=== PATIENT | male | born 1935 | race Caucasian/White ===

== ENCOUNTER 2017-12-18 15:29 | Oncology outpatient (ONC) | payer MEDICARE, BC, SELFPAY ==
[2017-12-18 15:47] VITALS: BP 141/78; PULSE 66; RESP 18; TEMP 36.8; O2SAT 99
--- NOTE | 2017-12-18 16:20 | ONC.PN ---
PN -Subjective Interval history: Diagnosis: CMML Previous treatment: None Interval history: The patient is an 82-year-old man who was seen initially at [facility] for pancytopenia. He really was not having any symptoms. He was noted to have low B12. He started on replacement and had some slight improvement in his hemoglobin and his white count. He was also noted to have some circulating monocytes that were elevated. He had a bone marrow biopsy performed that showed a hypercellular marrow at about 40%. There is a left shifted granulopoiesis that was megaloblastoid. There was mild discs edith carry a poor we since. There were about 5% blasts by morphology and about 12% blasts by flow cytometry. Cytogenetics were normal and FISH studies for MDS were negative. Other immuno phenotypic abnormalities of the myeloid a monocytic cell lines. Overall, this was felt to be most consistent with CMML. Today, the patient is without complaint. He has just returned from a trip to visit his daughter in [place]. He is not having any pain. His appetite is good. No fevers chills or sweats. He has not been losing any weight. He has not noted any adenopathy. Strength and energy level have been good. No unusual bleeding or bruising. He is otherwise without complaints. His medications include aspirin Lipitor B12 folic acid lisinopril hydrochlorothiazide and metoprolol. His past medical history is notable for tachycardia any does have a monitor on. He has had prior bypass surgery. He has hypertension and hyperlipidemia. He also has a distant history of prostate cancer treated with radiation therapy. Social history he is . 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 He does not drink or smoke. Family history is negative for any blood dyscrasia or malignancy. Home Medications and Allergies Home Medications Medication Instructions Recorded Confirmed Type ASPIRIN (Aspirin EC) 81 mg PO QDAY #0 08/15/12 History lisinopril-hydrochlorothiazide 1 tab PO QDAY #90 tab 09/29/16 Rx [Zestoretic] atorvastatin 40 mg PO DAILY 12/18/17 12/18/17 History cyanocobalamin (vitamin B-12) 1,000 mcg PO DAILY 12/18/17 12/18/17 History [Vitamin B-12] folic acid 0.4 mg PO DAILY 12/18/17 12/18/17 History metoprolol succinate 25 mg PO DAILY 12/18/17 12/18/17 History Exam - Constitutional positive no acute distress, positive average body habitus Results - Labs On November 30 his white count was 4.1 hemoglobin 11.4 hematocrit 34.6 with an MCV of 111 and a platelet count of a [id number]. He had 43% monocytes and an absolute monocyte count of 1.7. - Imaging Additional studies: Procedures Insertion of intraocular lens prosthesis at time of cataract extraction, one-stage (11/12/12) Phacoemulsification and aspiration of cataract (11/12/12) Assessment and Plan (1) CMML (chronic myelomonocytic leukemia) Problem details: 82-year-old man with new diagnosis of CMML. He has a mild anemia as well as a mild absolute monocytosis. He is not circulating any abnormal cells or immature cells. Using the [facility] prediction model, he is in low risk group with a median survival particularly of about 32 months. Because of his age, I do not think that he is a transplant candidate. He is really not symptomatic from his leukemia at this point and I think observation would be his recommended treatment. We did discuss the possibility of using Hydrea or mike-c if he did developed progressive elevations in his white count. Alternatively, vidaza could be considered if he is bothered more by cytopenias and need for transfusions. He is otherwise fairly healthy and I think may be a reasonably good candidate for clinical trials if they are available. Will make referral to [facility] for 2nd opinion and to see about availability and advisability of a clinical trial. He will return to clinic here in about 3 months or so for follow-up. Current visit: Yes Status: Acute
--- NOTE | 2017-12-18 16:25 | P.PNONC_ITS ---
PN -Subjective Interval history: Diagnosis: CMML Previous treatment: None Interval history: The patient is an 82-year-old man who was seen initially at [facility] for pancytopenia. He really was not having any symptoms. He was noted to have low B12. He started on replacement and had some slight improvement in his hemoglobin and his white count. He was also noted to have some circulating monocytes that were elevated. He had a bone marrow biopsy performed that showed a hypercellular marrow at about 40%. There is a left shifted granulopoiesis that was megaloblastoid. There was mild discs edith carry a poor we since. There were about 5% blasts by morphology and about 12% blasts by flow cytometry. Cytogenetics were normal and FISH studies for MDS were negative. Other immuno phenotypic abnormalities of the myeloid a monocytic cell lines. Overall, this was felt to be most consistent with CMML. Today, the patient is without complaint. He has just returned from a trip to visit his daughter in [place]. He is not having any pain. His appetite is good. No fevers chills or sweats. He has not been losing any weight. He has not noted any adenopathy. Strength and energy level have been good. No unusual bleeding or bruising. He is otherwise without complaints. His medications include aspirin Lipitor B12 folic acid lisinopril hydrochlorothiazide and metoprolol. His past medical history is notable for tachycardia any does have a monitor on. He has had prior bypass surgery. He has hypertension and hyperlipidemia. He also has a distant history of prostate cancer treated with radiation therapy. Social history he is . 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 He does not drink or smoke. Family history is negative for any blood dyscrasia or malignancy. Home Medications and Allergies Home Medications Medication Instructions Recorded Confirmed Type ASPIRIN (Aspirin EC) 81 mg PO QDAY #0 08/15/12 History lisinopril-hydrochlorothiazide 1 tab PO QDAY #90 tab 09/29/16 Rx [Zestoretic] atorvastatin 40 mg PO DAILY 12/18/17 12/18/17 History cyanocobalamin (vitamin B-12) 1,000 mcg PO DAILY 12/18/17 12/18/17 History [Vitamin B-12] folic acid 0.4 mg PO DAILY 12/18/17 12/18/17 History metoprolol succinate 25 mg PO DAILY 12/18/17 12/18/17 History Exam - Constitutional positive no acute distress, positive average body habitus Results - Labs On November 30 his white count was 4.1 hemoglobin 11.4 hematocrit 34.6 with an MCV of 111 and a platelet count of a [id number]. He had 43% monocytes and an absolute monocyte count of 1.7. - Imaging Additional studies: Procedures Insertion of intraocular lens prosthesis at time of cataract extraction, one- stage (11/12/12) Phacoemulsification and aspiration of cataract (11/12/12) Assessment and Plan (1) CMML (chronic myelomonocytic leukemia) Problem details: 82-year-old man with new diagnosis of CMML. He has a mild anemia as well as a mild absolute monocytosis. He is not circulating any abnormal cells or immature cells. Using the [facility] prediction model, he is in low risk group with a median survival particularly of about 32 months. Because of his age, I do not think that he is a transplant candidate. He is really not symptomatic from his leukemia at this point and I think observation would be his recommended treatment. We did discuss the possibility of using Hydrea or mike-c if he did developed progressive elevations in his white count. Alternatively, vidaza could be considered if he is bothered more by cytopenias and need for transfusions. He is otherwise fairly healthy and I think may be a reasonably good candidate for clinical trials if they are available. Will make referral to [facility] for 2nd opinion and to see about availability and advisability of a clinical trial. He will return to clinic here in about 3 months or so for follow-up. Current visit: Yes Status: Acute
== END 2017-12-19 12:00 | disposition home or self-care (01) ==
PROVIDERS: Family Provider Family Medicine; PCP Family Medicine
DX: C93.10 Chronic myelomonocytic leukemia not having achieved remission (principal); D64.9 Anemia, unspecified; Z85.46 Personal history of malignant neoplasm of prostate
CPT/HCPCS: 99214

== ENCOUNTER 2020-09-28 11:54 | Emergency (ER) | payer MEDICARE, BC, SELFPAY ==
[2020-09-28] VITALS (7 sets, daily range): BP systolic 122–141; BP diastolic 60–66; PULSE 49–66; RESP 18; TEMP 36.3; O2SAT 92–99
--- NOTE | 2020-09-28 12:30 | DI.CT.S_ITS ---
PROCEDURE: CT THORACIC SPINE WO CON INDICATIONS: fall w/ worsening pain ? fx on outpt (mae) xray TECHNIQUE: Noncontrast 3 mm thick sections acquired through the region of interest in the thoracic spine. Sagittal and coronal reformats were then constructed. For radiation dose reduction, the following was used: automated exposure control. COMPARISON: [facility], CT, CT LUMBAR SPINE WO CON, 09/28/2020, 12:32. FINDINGS: Image quality: Excellent. There are small rudimentary ribs associated with the L1 vertebral body. At T9, there is a old compression fracture with 70% height loss that has previously been treated with vertebroplasty. Methylmethacrylate cement is well contained At T11, there is an unchanged did acute appearing compression fracture with 50% height loss and prevertebral soft tissue edema. Minimal retropulsed fracture fragment results in mild central stenosis. L1 compression fracture is noted with 20% wedge-shaped anterior height loss. Heart size is enlarged, and there is dense coronary artery vascular calcification present. Old healed right posterior 7th, 8th and 9th rib fractures noted.. IMPRESSION: 1. Acute T11 compression fracture with 50% height loss and small retropulsed fracture fragment resulting in mild central stenosis. 2. L1 compression fracture with 20% anterior height loss is of uncertain age. Small rudimentary ribs noted associated with L1. 3. Old T9 compression fracture has been previously treated with vertebroplasty Approved by: Loyd Rodriguez M.D. on 09/28/2020 at 12:57
[2020-09-28] MEDS: KETOROLAC 30 MG/ML VIAL 15 MG IV (12:33)
[2020-09-28] MEDS: CYCLOBENZAPRINE 10 MG TABLET PO (12:33)
--- NOTE | 2020-09-28 12:34 | DI.CT.S_ITS ---
PROCEDURE: CT LUMBAR SPINE WO CON INDICATIONS: fall w/ worsening pain ? fx on outpt (mae) xray TECHNIQUE: Noncontrast 3 mm thick sections acquired from the T12 level to the sacrum. Sagittal and coronal reformats were constructed. For radiation dose reduction, the following was used: automated exposure control. COMPARISON: [facility], , CHEST 2 VIEW, 09/03/2006, 11:45. FINDINGS: Image quality: Excellent. Bones: There is a L1 wedge-shaped compression fracture with 20% anterior height loss and no retropulsed fracture fragment present. No central or foraminal stenosis. Small Schmorl's node noted in the superior endplate as well. Atherosclerotic calcification in the abdominal aorta noted without evidence of aneurysm. Mild disc space narrowing and circumferential disc bulge is present with arthropathy noted at L4-5 and L5-S1 without central stenosis. Mild bilateral foraminal stenosis noted L5-S1. IMPRESSION: L1 compression fracture with 20% height loss and no retropulsed fracture fragment. No central stenosis. Approved by: Loyd Rodriguez M.D. on 09/28/2020 at 12:45
--- NOTE | 2020-09-28 14:57 | ED.BACK ---
HPI - Back Pain/Injury General Chief Complaint: Back Pain/Injury Stated Complaint: bad back pain, Time Seen by Provider: 09/28/20 14:52 History of Present Illness HPI Narrative: This an 85-year-old male comes in with complaint of bad back pain in his lower thoracic and upper lumbar back pain. Patient had fall backwards about 2 weeks ago. He has continued to have similar symptoms since then with pain wrapping around towards front. Denies any radiation down his legs. No numbness, tingling or weakness. No loss of bowel or bladder control. Patient has had similar symptoms when he had a prior vertebral compression fracture had did have kyphoplasty. This was when he was staying in [place] you talk over the winter. Patient denies any other symptoms. He does have a history of cardiac bypass and is unsure of a statin, lisinopril/hydrochlorothiazide and metoprolol. Patient has been taking Tylenol home which has had moderate improvement for his pain but he does not feel to adequately controlled. Related Data Home Medications Medication Instructions Recorded Confirmed atorvastatin 40 mg tablet 40 mg PO DAILY 12/18/17 12/31/18 metoprolol succinate 25 mg 25 mg PO DAILY 12/18/17 12/31/18 tablet,extended release 24 hr ResMed Airsense 10 CPAP #1 ea 07/01/18 12/31/18 Previous Rx's Medication Instructions Recorded lisinopril 10 1 tab PO QDAY #90 tab 09/29/16 mg-hydrochlorothiazide 12.5 mg tablet (Zestoretic) hydrocodone 5 mg-acetaminophen 325 1 tab PO QID PRN #20 tab 09/28/20 mg tablet Allergies Allergy/AdvReac Type Severity Reaction Status Date / Time No Known Drug Allergies Allergy Verified 06/11/20 17:27 Review of Systems Review of Systems ROS Unobtainable: All systems reviewed & are unremarkable except as noted in HPI and below Patient History Medical History Aortic sclerosis (07/08/15) CMML (chronic myelomonocytic leukemia) (~2018) Compression fracture of thoracic vertebra 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/15) Erectile dysfunction due to arterial insufficiency (07/08/15) Essential hypertension (03/06/16) Malignant neoplasm of prostate (07/08/15) Mixed hyperlipidemia (07/08/15) Neutropenia (06/19/16) Obstructive sleep apnea syndrome (07/08/15) Osteoporosis (~2018) Other iron deficiency anemia (07/08/15) Restless legs syndrome (RLS) Surgical History Hip joint replacement status History of tonsillectomy and adenoidectomy S/P CABG x 4 Status post appendectomy Family History Father Mental health problem Social History marital status: details: trang Tam, lives on [place] in the summer number of children: 3 household members: spouse lives independently: Yes caregiver/support person: No housing: house occupational status: previously employed Smoking Status: Never smoker Smoking Status: Never smoker alcohol intake frequency: 0-2 drinks per day Substance Use Type: does not use Exam Narrative Exam Narrative: GENERAL: Alert and oriented x three, elderly male in mild distress. HEENT: Head normocephalic, atraumatic, EOMI, pupils reactive, face symmetric, moist mucous membranes NECK: Supple, full range of motion CARDIOVASCULAR: Regular rate and rhythm without murmurs, rubs or gallops. RESPIRATORY: Breath sounds equal bilaterally, no wheezes rales or rhonchi. ABDOMEN: Soft, nontender. Normoactive bowel sounds all 4 quadrants. No guarding or rebound, rigidity, no mass : No CVA tenderness BACK: No cervical, thoracic or lumbar vertebral point tenderness. Patient has decreased range of motion. Rectal exam is deferred. Muscle strength is 5/5 in lower extremities, DTRs are 2/4 and lower extremities. Dorsalis pedis and tibialis pulses are 2+ and lower extremities. Sensation is intact in the lower extremities. EXTREMITIES: Normal range of motion, no clubbing or edema. Neurovascularly intact NEUROLOGICAL: Cranial nerves II through XII grossly intact. Moving all extremities SKIN: Warm, dry, no petechiae, no rashes or lesions. Initial Vital Signs Initial Vital Signs: Vital Signs Temperature 97.3 F L 09/28/20 12:06 Pulse Rate 62 09/28/20 12:06 Respiratory Rate 18 09/28/20 12:06 Blood Pressure 138/61 09/28/20 12:06 Pulse Oximetry 99 09/28/20 12:06 Course Orders Ordered: ED Orders 09/28/20 12:30 CT thoracic spine wo con Stat 09/28/20 12:34 CT lumbar spine wo con Stat Discontinued Medications Hydrocodone Bitart/Acetaminophen (Hydrocodone/Acet 5/325 Tablet) 1 tab PO NOW ONE Stop: 09/28/20 15:41 Last Admin: 09/28/20 15:49 Dose: 1 tab Documented by: LEIGHTON Cyclobenzaprine HCl (Cyclobenzaprine 10 Mg Tablet) 10 mg PO NOW ONE Stop: 09/28/20 12:30 Last Admin: 09/28/20 12:33 Dose: 10 mg Documented by: JEAN CLAUDE Ketorolac Tromethamine (Ketorolac 30 Mg/Ml Vial) 15 mg IV NOW ONE Stop: 09/28/20 12:30 Last Admin: 09/28/20 12:33 Dose: 15 mg Documented by: JEAN CLAUDE Consultations Consultation #1: Dr. Michel, orthopedic surgery. Images reviewed. Okay to follow up outpatient. Can follow up with Dr. Proctor but Dr. Jordan would also be a good choice for possibly kyphoplasty. Agrees with plan that patient is appropriate for outpatient management. Vital Signs Vital signs: Vital Signs - 8 hr 09/28/20 12:06 09/28/20 14:44 09/28/20 14:52 Temperature 97.3 F L Pulse Rate 62 49 L 50 L Respiratory Rate 18 18 Blood Pressure 138/61 122/60 Pulse Oximetry 99 98 99 09/28/20 15:00 09/28/20 15:01 09/28/20 15:30 Temperature Pulse Rate 61 66 Respiratory Rate Blood Pressure 125/60 141/66 H Pulse Oximetry 99 99 09/28/20 15:44 Temperature Pulse Rate 61 Respiratory Rate Blood Pressure Pulse Oximetry 92 MDM - Back Pain/Injury Imaging Data tspine CT: Radiologist's Impression: [address] [id number] Scan ReportSigned Patient: Tanner Randhawa TMR#: [id number]: 5Acct:[id number]/Sex: 85 / MDate of Service: 09/28/20Loc: EDAccession Number: [id number] Procedure: CT thoracic spine wo con Ordering Provider: Cristy Pires D.O. PROCEDURE: CT THORACIC SPINE WO CON INDICATIONS: fall w/ worsening pain ? fx on outpt (mae) xray TECHNIQUE: Noncontrast 3 mm thick sections acquired through the region of interest in the thoracic spine. Sagittal and coronal reformats were then constructed. For radiation dose reduction, the following was used: automated exposure control. COMPARISON: [facility], CT, CT LUMBAR SPINE WO CON, 09/28/2020, 12:32. FINDINGS: Image quality: Excellent. There are small rudimentary ribs associated with the L1 vertebral body. At T9, there is a old compression fracture with 70% height loss that has previously been treated with vertebroplasty. Methylmethacrylate cement is well contained At T11, there is an unchanged did acute appearing compression fracture with 50% height loss and prevertebral soft tissue edema. Minimal retropulsed fracture fragment results in mild central stenosis. L1 compression fracture is noted with 20% wedge-shaped anterior height loss. Heart size is enlarged, and there is dense coronary artery vascular calcification present. Old healed right posterior 7th, 8th and 9th rib fractures noted.. IMPRESSION: 1. Acute T11 compression fracture with 50% height loss and small retropulsed fracture fragment resulting in mild central stenosis. 2. L1 compression fracture with 20% anterior height loss is of uncertain age. Small rudimentary ribs noted associated with L1. 3. Old T9 compression fracture has been previously treated with vertebroplasty Approved by: Loyd Rodriguez M.D. on 09/28/2020 at 12:[address]: Radiologist's Impression: [address] [id number] Scan ReportSigned Patient: Tanner Randhawa TMR#: [id number]: 5Acct:[id number]/Sex: 85 / MDate of Service: 09/28/20Loc: EDAccession Number: [id number] Procedure: CT lumbar spine wo con Ordering Provider: Cristy Pires D.O. PROCEDURE: CT LUMBAR SPINE WO CON INDICATIONS: fall w/ worsening pain ? fx on outpt (mae) xray TECHNIQUE: Noncontrast 3 mm thick sections acquired from the T12 level to the sacrum. Sagittal and coronal reformats were constructed. For radiation dose reduction, the following was used: automated exposure control. COMPARISON: [facility], , CHEST 2 VIEW, 09/03/2006, 11:45. FINDINGS: Image quality: Excellent. Bones: There is a L1 wedge-shaped compression fracture with 20% anterior height loss and no retropulsed fracture fragment present. No central or foraminal stenosis. Small Schmorl's node noted in the superior endplate as well. Atherosclerotic calcification in the abdominal aorta noted without evidence of aneurysm. Mild disc space narrowing and circumferential disc bulge is present with arthropathy noted at L4-5 and L5-S1 without central stenosis. Mild bilateral foraminal stenosis noted L5-S1. IMPRESSION: L1 compression fracture with 20% height loss and no retropulsed fracture fragment. No central stenosis. Approved by: Loyd Rodriguez M.D. on 09/28/2020 at 12:45 MDM Narrative Medical decision making narrative: 85-year-old male who has had back pain after a fall box maleate 10 days ago. Patient does have a history compression fractures and states this feels similar. CT imaging does show an acute fracture with a small retropulsed fragment. Patient some been controlling his pain with Tylenol, he has been able to ambulate does not have any new neurologic changes. Images were reviewed with orthopedic surgery who feels patient is appropriate for outpatient follow-up. Referrals can include Dr. Hunter here locally or Dr. Jordan also. Patient was given prescription for pain control. Return precautions in all questions answered. Discharge Plan Departure Patient Disposition: Home Clinical Impression: Compression fracture of L1 lumbar vertebra Compression fracture of thoracic vertebra Qualifiers: Encounter type: initial encounter Thoracic vertebra fracture level: T11 Qualified Code(s): S22.080A - Wedge compression fracture of T11-T12 vertebra, initial encounter for closed fracture Instructions: DI for Vertebral Fracture Activity Restrictions/Additional Instructions: Your imaging today shows what appear to be old compression fractures at T9 and L1 as well as a new compression fracture at T11. Your case was discussed with Dr. Michel from Orthopedic surgery. Your images were reviewed. Please call to set up an appointment with orthopedic surgery. Dr. Jordan may be a good choice and his contact information is included. There office number is [phone]. You may take Tylenol up to a 1000 mg every 8 hours as needed for pain. If this is inadequate you may take [place] in place of Tylenol. These both have Tylenol in them so your maximum dose of acetaminophen or Tylenol in 24 hours is 3000 mg. If this is an adequate you may take narcotic pain medication as prescribed. This medication can make you sleepy do not drive, perform hazardous activities or make any major decisions while taking it. This medication will make you constipated please take a stool softener once to twice daily until stools are soft and regular. Prescription sent to [facility]. Please return for fevers, rapidly worsening or uncontrollable pain, new weakness numbness or loss of sensation, loss of bowel or bladder control, new numbness in the groin region or other new or concerning symptoms. Prescriptions: New hydrocodone-acetaminophen 5-325 mg tablet 1 tab PO QID PRN (Reason: pain) Qty: 20 RF: 0 No Action lisinopril-hydrochlorothiazide [Zestoretic] 10 MG/12.5 MG tablet 1 tab PO QDAY Qty: 90 RF: 0 (DME) ResMed Airsense 10 CPAP Qty: 1 RF: 0 atorvastatin 40 mg Tablet 40 mg PO DAILY RF: 0 metoprolol succinate 25 mg Tablet Extended Release 24 Hr 25 mg PO DAILY RF: 0 Referrals: Shayne Jordan MD [Physician] - Yodit Michel MD [Physician] - Chan Sandy MD [Primary Care Provider] -
[2020-09-28] MEDS: HYDROCODONE/ACET 5/325 TABLET 1 TAB PO (15:49)
== END 2020-09-28 16:02 | disposition home or self-care (01) ==
PROVIDERS: Emergency Provider Emergency Medicine; Family Provider Family Medicine; PCP Family Medicine
DX: S32.010A Wedge compression fracture of first lumbar vertebra, initial encounter for closed fracture (principal); S22.080A Wedge compression fracture of T11-T12 vertebra, initial encounter for closed fracture; W19.XXXA Unspecified fall, initial encounter
CPT/HCPCS: 72128; 72131; 96374; 99284; J1885

== ENCOUNTER → 2020-11-12 16:05 | Outpatient (CLI) | payer MEDICARE, BC, SELFPAY ==
--- NOTE | 2020-11-12 | DI.MRI.S_ITS ---
PROCEDURE: MR LUMBAR SPINE WO CON INDICATIONS: Radiculopathy, lumbar region TECHNIQUE: Noncontrast sagittal T1 spin echo and T2 fast echo, sagittal STIR, axial T1 and T2 fast spin echo through the lumbar spine. In cases with scoliosis, additional coronal T2 fast spin echo may be performed. COMPARISON: [facility], CR, XR THORACIC SPINE 2 VIEWS, 10/06/2020, 14:37. [facility], CT, CT THORACIC SPINE WO CON, 09/28/2020, 12:32. [facility], CR, XR THORACOLUMBAR SPINE 2 VIEWS, 10/20/2020, 15:05. [facility], CT, CT LUMBAR SPINE WO CON, 09/28/2020, 12:32. FINDINGS: Image quality: Excellent. Alignment and Curvature: There is normal bony alignment. Bone Marrow: Marrow is of normal overall signal. No acute vertebral body compression fractures. Prior stable anterior wedge deformities can be seen at T9, T11, and L1, with placement of vertebroplasty cement. Spinal Cord: Conus medullaris terminates at the L1-L2 level. Visualized cord demonstrates normal signal and size. Paraspinous Soft Tissues: No paravertebral masses. A simple appearing left renal cyst can be seen posteriorly, measuring 1.8 cm. T12-L1: No significant abnormality can be seen. L1-L2: Normal appearance. L2-L3: Normal appearance. L3-L4: The disc height and disc signal are relatively well preserved. Mild generalized disc bulge is seen. Mild bilateral neural foraminal narrowing can be seen, left worse than right. No significant central canal narrowing is seen. L4-L5: The disc height is well-preserved. Loss of disc signal is seen at this level. Mild to moderate disc bulge is seen. Mild facet joint hypertrophy is seen. Mild to moderate bilateral neural foraminal narrowing can be seen. Minimal central canal narrowing is seen. L5-S1: The disc height and disc signal are relatively well preserved. Mild generalized disc bulge is seen. There is moderate right-sided and mild left-sided facet hypertrophy seen. There is moderate bilateral neural foraminal narrowing seen, right worse than left. Minimal central canal narrowing is seen. IMPRESSION: Lumbar spine degenerative changes are seen, which are overall worst at the L5-S1 level. Prior T9, T11, and L1 fractures, with vertebroplasty cement. Dictated by: Андрей Ibrhaim M.D. on 11/12/2020 at 16:48 Approved by: Андрей Ibrahim M.D. on 11/12/2020 at 16:57
== END ==
PROVIDERS: Family Provider Family Medicine; PCP Family Medicine; Referring Provider Family Medicine; Visit Provider Family Medicine
DX: S32.010S Wedge compression fracture of first lumbar vertebra, sequela (principal); M54.14 Radiculopathy, thoracic region; S22.080D Wedge compression fracture of T11-T12 vertebra, subsequent encounter for fracture with routine healing
CPT/HCPCS: 72148

== ENCOUNTER → 2021-06-28 17:07 | Outpatient (CLI) | payer MEDICARE, BC, SELFPAY ==
--- NOTE | 2021-06-28 | DI.MRI.S_ITS ---
PROCEDURE: MR LUMBAR SPINE WO CON INDICATIONS: WEDGE COMPRESSION FRACTURE OF FIRST LUMBAR TECHNIQUE: Noncontrast sagittal T1 spin echo and T2 fast echo, sagittal STIR, and T2 fast spin echo through the lumbar spine. In cases with scoliosis, additional coronal T2 fast spin echo may be performed. COMPARISON: [facility], CR, XR THORACIC SPINE 2 VIEWS, 05/17/2021, 11:45. [facility], MR, MR LUMBAR SPINE WITHOUT CONTRAST, 05/20/2021, 11:27. [facility], CR, XR INTRAOPERATIVE FLUORO UP TO 1 HOUR, 06/14/2021, 12:37. [facility], CR, XR LUMBAR SPINE 2 OR 3 VIEWS, 06/28/2021, 13:56. [facility], CT, CT THORACIC SPINE WO CON, 09/28/2020, 12:32. [facility], CT, CT LUMBAR SPINE WO CON, 09/28/2020, 12:32. [facility], MR, MR LUMBAR SPINE WO CON, 11/12/2020, 17:11. FINDINGS: Image quality: Excellent. Alignment and Curvature: There is normal bony alignment. Bone Marrow: Marrow is of normal overall signal. No acute vertebral body compression fractures. Previous treated compressions of T11, L1, and L3. There is some further collapse that has occurred involving L3, with associated bone marrow edema. Spinal Cord: Conus medullaris terminates at the L2 level. Visualized cord demonstrates normal signal and size. Paraspinous Soft Tissues: No paravertebral masses. T12-L1: No canal stenosis or foraminal stenosis. L1-L2: Mild facet hypertrophy. No canal stenosis or foraminal stenosis. L2-L3: Mild facet hypertrophy. No canal stenosis or foraminal stenosis. L3-L4: Mild facet hypertrophy. No canal stenosis. Mild right foraminal stenosis. L4-L5: Disc bulge. Mild facet hypertrophy. No canal stenosis. Mild right foraminal stenosis. L5-S1: Disc bulge. Facet hypertrophy. No canal stenosis. Moderate right foraminal stenosis with flattening deformity on the exiting right L5 nerve root. IMPRESSION: 1. There are treated compression fractures of T11, L1, and L3. 3. Mild interval further collapse of L3 with associated bone marrow edema. At least some of this edema can be related to the recent kyphoplasty procedure. Dictated by: Mukund Rice M.D. on 06/29/2021 at 9:21 Approved by: Mukund Rice M.D. on 06/29/2021 at 9:33
--- NOTE | 2021-06-28 | DI.MRI.S_ITS ---
PROCEDURE: MR THORACIC SPINE WO CON INDICATIONS: WEDGE COMPRESSION FX OF FIRST LUMBAR TECHNIQUE: Noncontrast sagittal T1 spine echo and T2 fast spin echo, sagittal STIR, axial T1 and T2 fast spin echo through the thoracic spine. COMPARISON: [facility], CT, CT THORACIC SPINE WO CON, 09/28/2020, 12:32. [facility], CR, DEXA COMPLETE, 12/16/2018, 10:23. [facility], CR, XR LUMBAR SPINE 2 OR 3 VIEWS, 06/28/2021, 13:56. FINDINGS: Image quality: Excellent. Alignment and Curvature: There is normal bony alignment. Bone Marrow: Numerous previously treated compression fractures, including T9, T11, L1, and L3. Mild old T1, T3, T6 vertebral fractures. Subacute T7 moderate compression with approximately 50% midportion vertebral body height loss. This is a subacute on chronic compression. Spinal Cord: Visualized spinal cord is normal in size and signal. Paraspinous Soft Tissues: No paravertebral masses. Miscellaneous: On axial images, central canal and foramina appear widely patent at all scanned levels. There is minimal bony retropulsion at T7-T8 involving the inferior endplate of T7, without canal stenosis. IMPRESSION: 1. Severe osteoporosis with numerous chronic compressions, including T1, T3, T6, T9, T11, L1, and L3. Previous percutaneous cement fixation of T9, T11, L1, and L3. 2. There is a subacute on chronic compression fracture of T7. It is moderate. Dictated by: Mukund Rice M.D. on 06/29/2021 at 9:12 Approved by: Mukund Rice M.D. on 06/29/2021 at 9:21
== END ==
PROVIDERS: Family Provider Family Medicine; PCP Family Medicine; Referring Provider Orthopaedic Surgery; Visit Provider Orthopaedic Surgery
DX: M80.08XA Age-related osteoporosis with current pathological fracture, vertebra(e), initial encounter for fracture (principal); S32.010D Wedge compression fracture of first lumbar vertebra, subsequent encounter for fracture with routine healing; M54.6 Pain in thoracic spine
CPT/HCPCS: 72146; 72148

== ENCOUNTER → 2021-11-10 18:48 | Outpatient (CLI) | payer MEDICARE, BC, SELFPAY ==
--- NOTE | 2021-11-10 18:52 | DI.MRI.S_ITS ---
PROCEDURE: MR LUMBAR SPINE WO CON INDICATIONS: LOWER BACK PAIN TECHNIQUE: Noncontrast sagittal T1 spin echo and T2 fast echo, sagittal STIR, and T2 fast spin echo through the lumbar spine. In cases with scoliosis, additional coronal T2 fast spin echo may be performed. COMPARISON: [facility], CR, XR LUMBAR SPINE WITH FLEXION EXTENSION 5 VIEWS, 11/10/2021, 13:56. [facility], MR, MR LUMBAR SPINE WO CON, 06/28/2021, 17:57. [facility], CR, XR INTRAOPERATIVE FLUORO UP TO 1 HOUR, 06/14/2021, 12:37. FINDINGS: Image quality: Excellent. Alignment and Curvature: There is normal bony alignment. Bone Marrow: Wedge-shaped compression fractures noted throughout the visualized spine from T11 through L5 with relative sparing of the T12 and S1. Moderate height loss at T11. There is marrow edema involving the superior endplate of L2 reflecting acute to subacute compression fracture. Vertebroplasty treatment noted at T11, L1 and L3 Spinal Cord: Conus medullaris terminates at the L1 level. Visualized cord demonstrates normal signal and size. Paraspinous Soft Tissues: No paravertebral masses. T12-L1: Disc space narrowing with circumferential disc bulge and hypertrophic facet joints results in no central or foraminal stenosis L1-L2: Disc space is preserved. No central or foraminal stenosis L2-L3: Disc space narrowing with circumferential disc bulge and hypertrophic facet joints results in no central stenosis. Mild bilateral foraminal stenosis L3-L4: Disc space is preserved. Circumferential disc bulge present. No central stenosis. Moderate bilateral foraminal stenosis L4-L5: Disc height is preserved. Circumferential disc bulge present without central stenosis. Moderate bilateral foraminal stenosis L5-S1: Disc height is preserved. Hypertrophic facet joints present. No central stenosis. Mild right and moderate left foraminal stenosis IMPRESSION: 1. Acute to subacute L2 compression fracture with marrow edema and trace height loss. No retropulsed fracture fragment or significant stenosis. 2. Multilevel chronic vertebral compression fractures associated with well contained vertebroplasty treatment at T11, L1 and L3. Approved by: Loyd Rodriguez M.D. on 11/11/2021 at 10:11
== END ==
PROVIDERS: Family Provider Family Medicine; PCP Family Medicine; Referring Provider Physician Assistant Surgical; Visit Provider Physician Assistant Surgical
DX: S22.080S Wedge compression fracture of T11-T12 vertebra, sequela (principal); M54.50 Low back pain, unspecified; S29.019D Strain of muscle and tendon of unspecified wall of thorax, subsequent encounter; M80.08XS Age-related osteoporosis with current pathological fracture, vertebra(e), sequela; S32.030S Wedge compression fracture of third lumbar vertebra, sequela; S32.010S Wedge compression fracture of first lumbar vertebra, sequela
CPT/HCPCS: 72148

== ENCOUNTER 2023-06-26 12:23 | Emergency (ER) | payer MEDICARE, OTHER, SELFPAY ==
[2023-06-26 12:23] VITALS: BP 153/104; PULSE 77; RESP 16; TEMP 36.7; O2SAT 96
--- NOTE | 2023-06-26 12:43 | ED_ITS ---
HPI - Male Genitourinary General Chief complaint: Urogenital-Male Stated complaint: Edema in penis Time Seen by Provider: 06/26/23 12:43 Source: patient, RN notes reviewed and old records reviewed Limitations: no limitations History of Present Illness HPI Narrative: This is an 88-year-old male with recent hip fracture and repair sent for swelling or edema of the penis. Patient comes from rehab facility. Patient states he is not circumcised, he does not recall having a catheter any time recently or having any thing done but he states nursing noticed that his penis was swollen. He does not know when that started. Patient denies any pain, he has been urinating. He has not other complaints. Related Data Home Medications Medication Instructions Recorded Confirmed atorvastatin 40 mg tablet 40 mg PO DAILY 12/18/17 12/28/20 metoprolol succinate 25 mg 25 mg PO DAILY 12/18/17 12/28/20 tablet,extended release 24 hr [facility] Air[facility] 10 CPAP #1 ea 07/01/18 12/28/20 amiodarone PO 12/28/20 apixaban 5 mg tablet (Eliquis) 5 mg PO BID 12/28/20 12/28/20 Previous Rx's Medication Instructions Recorded lisinopril 10 1 tab PO QDAY #90 tabs 09/29/16 mg-hydrochlorothiazide 12.5 mg tablet (Zestoretic) Allergies Allergy/AdvReac Type Severity Reaction Status Date / Time No Known Drug Allergies Allergy Verified 12/28/20 11:03 Review of Systems Review of Systems ROS Unobtainable: All systems reviewed & are unremarkable except as noted in HPI and below Patient History Medical History Actinic keratosis (12/05/04) Compression fracture of first lumbar vertebra Restless legs syndrome (RLS) Osteoporosis (~2018) Compression fracture of thoracic vertebra CMML (chronic myelomonocytic leukemia) (~2018) Neutropenia (06/19/16) Essential hypertension (03/06/16) Aortic sclerosis (07/08/15) Malignant neoplasm of prostate (07/08/15) Other iron deficiency anemia (07/08/15) Obstructive sleep apnea syndrome (07/08/15) Mixed hyperlipidemia (01/08/03) Erectile dysfunction due to arterial insufficiency (07/08/15) Coronary artery disease involving [place] coronary artery of [place] heart without angina pectoris (07/08/15) Surgical History S/P CABG x 4 Hip joint replacement status History of tonsillectomy and adenoidectomy Status post appendectomy Family History Father Mental health problem Social History marital status: details: trang Tam, [place] on [address] [place] number of children: 3 household members: spouse lives independently: Yes caregiver/support person: No housing: house occupational status: previously employed Smoking Status: Never smoker Smoking Status: Never smoker alcohol intake frequency: 0-2 drinks per day Substance Use Type: does not use Exam Narrative Exam Narrative: GENERAL: Alert and oriented x three, male in mild distress HEENT: Head normocephalic, atraumatic, EOMI, pupils reactive, face symmetric, moist mucous membranes NECK: Supple, full range of motion CARDIOVASCULAR: Regular rate and rhythm without murmurs, rubs or gallops. RESPIRATORY: Breath sounds equal bilaterally, no wheezes rales or rhonchi. ABDOMEN: Soft, nontender. Normoactive bowel sounds all 4 quadrants. No guarding or rebound, rigidity, no mass : No CVA tenderness. Male: normal external examination of the testicles patient's penis the glans and distal portion of the shaft are quite edematous, no erythema, patient is nontender, no penile discharge or lesions, testicles non-tender, cremasteric reflex intact, no inguinal hernias noted. Patient had direct pressure applied to the area circumferentially and his foreskin was replaced with reduction of the paraphimosis. EXTREMITIES: Normal range of motion, no clubbing or edema. Neurovascularly intact NEUROLOGICAL: Cranial nerves II through XII grossly intact. Moving all extremities SKIN: Warm, dry, no petechiae, no rashes or lesions. Initial Vital Signs Initial Vital Signs: Vital Signs Temperature 98.0 F 06/26/23 12:23 Pulse Rate 77 06/26/23 12:23 Respiratory Rate 16 06/26/23 12:23 Blood Pressure 153/104 H 06/26/23 12:23 Pulse Oximetry 96 06/26/23 12:23 Oxygen Delivery Method Room Air 06/26/23 12:23 Course Vital Signs Vital signs: Vital Signs - 8 hr 06/26/23 12:23 06/26/23 14:20 Temperature 98.0 F Pulse Rate 77 69 Respiratory Rate 16 16 Blood Pressure 153/104 H 133/69 Pulse Oximetry 96 100 Oxygen Delivery Method Room Air Room Air MDM - Male Genitourinary MDM Narrative Medical decision making narrative: This is an 88-year-old male with recent hospitalization for hip fracture currently in rehab facility he is uncircumcised and was noted by staff today on skin checks that he had a paraphimosis he does on examination, it was easily reduced by myself. He has been urinating. Patient had a little bit of ice placed and was rechecked about 45 minutes after reduction, patient still reduced. He has been able to urinate here in the department afterwards. Discharge Plan Departure Patient Disposition: Home Clinical Impression: Paraphimosis Instructions: DI for Paraphimosis Activity Restrictions/Additional Instructions: Follow up with Urology as needed. You had a paraphimosis today this is when the foreskin has been retracted and left in place and he developed swelling of the end of the penis. This was reduced here in the department, do not retract the foreskin for the next 48 hours make sure to replace after any sort of skin care, Bowens catheter or straight catheter interventions by yourself or nursing staff. Please return for any difficulties with urination, if you are having pain, increasing swelling, hematuria or bleeding or other new or concerning changes. Prescriptions: No Action lisinopril-hydrochlorothiazide [Zestoretic] 10 MG/12.5 MG tablet 1 tab PO QDAY Qty: 90 0RF (DME) [facility] Airsense 10 CPAP Qty: 1 Dose Instruction: As directed Patient Comments: Pressure: 9-16 cmH2O DME: [facility] Rx Instructions: As directed atorvastatin 40 mg Tablet 40 mg PO DAILY metoprolol succinate 25 mg Tablet Extended Release 24 Hr 25 mg PO DAILY Eliquis 5 mg tablet 5 mg PO BID amiodarone PO Referrals: Cam Wick MD [Physician] - Chan Sandy MD [Primary Care Provider] - Stand Alone Forms: Patient Portal/API
[2023-06-26 14:20] VITALS: BP 133/69; PULSE 69; RESP 16; O2SAT 100
== END 2023-06-26 14:32 | disposition home or self-care (01) ==
PROVIDERS: Emergency Provider Emergency Medicine; Family Provider Family Medicine; PCP Family Medicine
DX: N47.2 Paraphimosis (principal)
CPT/HCPCS: 99281

== ENCOUNTER → 2023-07-11 08:29 | Outpatient (ROUT) | payer MEDICARE, SELFPAY ==
[2023-07-11 08:39] LABS: D Dimer 2258 ng/ml (<500)
== END ==
PROVIDERS: Family Provider Family Medicine; PCP Family Medicine; Visit Provider Registered Nurse
DX: S12.3 Fracture of fourth cervical vertebra (principal)
CPT/HCPCS: 85379

== ENCOUNTER 2023-07-26 16:46 | Emergency (ER) | payer MEDICARE, BC, SELFPAY ==
[2023-07-26 16:52] VITALS: BP 125/59; PULSE 51; RESP 18; TEMP 36.3; O2SAT 100; BMI 21.4
--- NOTE | 2023-07-26 18:47 | PC.NURSE ---
Patient has unstageable right heel ulcer that is the diameter of a half dollar with a ring of darkness that is surrounding.
--- NOTE | 2023-07-26 18:50 | ED.WOUNDLAC ---
HPI - Wound/Laceration <Alireza Alicea PA-C - Last Filed: 07/26/23 19:22> General Chief Complaint: Wound/Laceration Stated Complaint: sores on feet,low blood pressure sent by [facility] Time Seen by Provider: 07/26/23 18:33 History of Present Illness HPI narrative: This is a 88-year-old male presents to the emergency department due to the right heel ulcer. He fractures femur about a month and a half ago and he developed a right heel ulcer about a month ago. There was no spreading redness around the wound and denies any fevers or systemic Cipro denies any drainage from the wound. Denies any significant pain. Related Data Home Medications Medication Instructions Recorded Confirmed atorvastatin 40 mg tablet 40 mg PO DAILY 12/18/17 07/26/23 [facility]Med Airsense 10 CPAP #1 ea 07/01/18 12/28/20 digoxin 125 mcg (0.125 mg) tablet 125 mcg PO DAILY 07/26/23 07/26/23 gabapentin 100 mg capsule 100 mg PO DAILY 07/26/23 07/26/23 hydrochlorothiazide 12.5 mg tablet 12.5 mg PO DAILY 07/26/23 07/26/23 levothyroxine 25 mcg tablet 25 mcg PO DAILY 07/26/23 07/26/23 lisinopril 5 mg tablet 5 mg PO DAILY 07/26/23 07/26/23 metoprolol succinate 25 mg 50 mg PO BID 07/26/23 07/26/23 tablet,extended release 24 hr mirtazapine 15 mg tablet 15 mg PO ONCE PM 07/26/23 07/26/23 Allergies Allergy/AdvReac Type Severity Reaction Status Date / Time No Known Drug Allergies Allergy Verified 12/28/20 11:03 Review of Systems <Alireza Alicea PA-C - Last Filed: 07/26/23 19:22> Review of Systems Narrative: GENERAL: Denies chills, fatigue, malaise, fever, sweats. HEENT: Denies sinus pain, ear pain, sore throat, difficulty swallowing, dizziness. RESPIRATORY: Denies dyspnea, cough, wheezing, hemoptysis, sputum. CARDIOVASCULAR: Denies chest pain, palpitations, orthopnea, edema, GASTROINTESTINAL: Denies nausea, vomiting, abdominal pain, diarrhea, constipation, melena. : Denies dysuria, frequency, incontinence, hematuria, urinary retention. MUSCULOSKELETAL: denies weakness, joint pain, or bony pain SKIN: Right heel ulcer NEUROLOGIC: Denies weakness, headache, numbness, change in speech, confusion, seizures, incoordination. PSYCHIATRIC: No concerning psychosocial issues. 12 point review of systems is negative except for those stated above Patient History <Alireza Alicea PA-C - Last Filed: 07/26/23 19:22> Medical History Actinic keratosis (12/05/04) Compression fracture of first lumbar vertebra Restless legs syndrome (RLS) Osteoporosis (~2017) Compression fracture of thoracic vertebra CMML (chronic myelomonocytic leukemia) (~2018) Neutropenia (06/19/16) Essential hypertension (03/06/16) Aortic sclerosis (07/08/15) Malignant neoplasm of prostate (07/08/15) Other iron deficiency anemia (07/08/15) Obstructive sleep apnea syndrome (07/08/15) Mixed hyperlipidemia (01/08/03) Erectile dysfunction due to arterial insufficiency (07/08/15) Coronary artery disease involving [place] coronary artery of [place] heart without angina pectoris (07/08/15) Surgical History S/P CABG x 4 Hip joint replacement status History of tonsillectomy and adenoidectomy Status post appendectomy Family History Father Mental health problem Social History marital status: details: trang Tam, lives on [address] [place] the summer number of children: 3 household members: spouse lives independently: Yes caregiver/support person: No housing: house occupational status: previously employed Smoking Status: Never smoker Smoking Status: Never smoker alcohol intake frequency: 0-2 drinks per day Substance Use Type: does not use Exam <Alireza Alicea PA-C - Last Filed: 07/26/23 19:22> Narrative Exam Narrative: GENERAL: Well-developed patient, in mild distress. HEAD: Atraumatic. Normocephalic. EYES: Pupils equal round and reactive. Extraocular motions intact. No scleral icterus. No injection or drainage. ENT: Nose without bleeding, purulent drainage. Throat without erythema, tonsillar hypertrophy or exudate. Airway patent. NECK: Trachea midline. Non tender EXTREMITIES: No edema or joint tenderness. NEURO: AOx3. SKIN: Right heel ulcer, no surrounding erythema purulent drainage, appears chronic in nature Initial Vital Signs Initial Vital Signs: Vital Signs Temperature 97.3 F L 07/26/23 16:52 Pulse Rate 51 L 07/26/23 16:52 Respiratory Rate 18 07/26/23 16:52 Blood Pressure 125/59 L 07/26/23 16:52 Pulse Oximetry 100 07/26/23 16:52 Oxygen Delivery Method Room Air 07/26/23 16:52 <Cristy Lin MD - Last Filed: 07/27/23 05:38> Initial Vital Signs Initial Vital Signs: Vital Signs Temperature 97.3 F L 07/26/23 16:52 Pulse Rate 51 L 07/26/23 16:52 Respiratory Rate 18 07/26/23 16:52 Blood Pressure 125/59 L 07/26/23 16:52 Pulse Oximetry 100 07/26/23 16:52 Oxygen Delivery Method Room Air 07/26/23 16:52 Course <Alireza Alicea PA-C - Last Filed: 07/26/23 19:22> Vital Signs Vital signs: Vital Signs - 8 hr 07/26/23 16:52 Temperature 97.3 F L Pulse Rate 51 L Respiratory Rate 18 Blood Pressure 125/59 L Pulse Oximetry 100 Oxygen Delivery Method Room Air <Cristy Lin MD - Last Filed: 07/27/23 05:38> Vital Signs Vital signs: Vital Signs - 8 hr 07/26/23 16:52 Temperature 97.3 F L Pulse Rate 51 L Respiratory Rate 18 Blood Pressure 125/59 L Pulse Oximetry 100 Oxygen Delivery Method Room Air MDM - Wound/Laceration <Alireza Alicea PA-C - Last Filed: 07/26/23 19:22> MDM Narrative Medical decision making narrative: ED course: This is a 88-year-old male presents to the emergency department to evaluate a right heel ulcer. Wound was evaluated and appeared chronic in nature and patient was given referral to follow up in the Wound Care Clinic. There was no spreading erythema or purulent drainage or concerns for infection. Of note patient was sent here from the walk-in clinic due to a brief episode of bradycardia as well as hypotension. Blood pressure and heart rate within normal limits today. Did recommend he follow up with his established independent jeweler to discuss his antihypertensives and beta-blockers. Patient was anti symptomatic during these episodes of bradycardia and hypotension. CC: Right heel ulcer Complicating co-morbidities: None Data collected from: Previous notes Medical records reviewed: Patient as history of femur fracture on 06/05 Differential considered, but not limited to: Infected wound, chronic ulceration Exam documented above, pertinent findings include: No spreading erythema or purulent drainage concerning for infection Lab Test results independently reviewed as above. Pertinent findings: None obtained Imaging studies independently reviewed: None obtained Scores Used: None MIPS Elements: None Consultations: None Treatments: None Re-evaluations: None Discussion: Discussed plan with the patient was comfortable with the plan Diagnosis: Right heel wound Disposition: see below, along with detailed discharge instructions that have been reviewed with patient as well as indications for ED re-evaluation and additional outpatient follow up Discharge Plan Departure Patient Disposition: Home Clinical Impression: Heel ulceration Activity Restrictions/Additional Instructions: Thank you for coming to the [facility] Emergency Department today. The wound care clinic should be calling to establish an appointment by recommend you call him tomorrow as well to help speed the process along. There does not appear to be any signs of infection affecting the heel wound. Please monitor for any evidence of this. Also recommend you speak to your independent jeweler tomorrow to discuss possible alterations in your heart medications to avoid any episodes of bradycardia or hypotension in the future. Please return to the emergency department if you develop any redness spreading from the wound, purulent drainage, or any other concerning signs or symptoms. I hope you feel better soon. Please follow up with your primary care provider within a week if your symptoms continue. If you do not have a primary care provider please contact the [facility] Resource line at [phone]. They will ask some questions about your medical history and help you get set up with a provider in the community. Prescriptions: No Action gabapentin 100 mg capsule 100 mg PO DAILY mirtazapine 15 mg tablet 15 mg PO ONCE PM digoxin 125 mcg (0.125 mg) tablet 125 mcg PO DAILY lisinopril 5 mg tablet 5 mg PO DAILY levothyroxine 25 mcg tablet 25 mcg PO DAILY hydrochlorothiazide 12.5 mg tablet 12.5 mg PO DAILY (DME) [facility]: 1 Dose Instruction: As directed Patient Comments: Pressure: 9-16 cmH2O DME: [facility] Rx Instructions: As directed atorvastatin 40 mg Tablet 40 mg PO DAILY metoprolol succinate 25 mg tablet extended release 24 hr 50 mg PO BID Referrals: Gloria Olson MD [Primary Care Provider] - Stand Alone Forms: Patient Portal/API ED Sign-out <Cristy Lin MD - Last Filed: 07/27/23 05:38> Cosign ED Attending Cosignature Attestation: I did not see this patient. I was available all times for consultation.
[2023-07-26 19:43] VITALS: BP 125/62; PULSE 63; RESP 15; O2SAT 100
== END 2023-07-26 19:44 | disposition home or self-care (01) ==
PROVIDERS: Emergency Provider Physician Assistant Medical; Family Provider Family Medicine; PCP Family Medicine
DX: L97.419 Non-pressure chronic ulcer of right heel and midfoot with unspecified severity (principal)
CPT/HCPCS: 99281; 99282

== ENCOUNTER → 2023-07-31 09:02 | Outpatient (CLI) | payer MEDICARE, BC, SELFPAY | PROVIDERS: Family Provider Family Medicine; PCP Family Medicine; Referring Provider Physician Assistant Medical; Visit Provider Surgery | DX: L89.613 Pressure ulcer of right heel, stage 3 (principal); L89.321 Pressure ulcer of left buttock, stage 1; R60.0 Localized edema; L53.9 Erythematous condition, unspecified; I25.10 Atherosclerotic heart disease of native coronary artery without angina pectoris; I10 Essential (primary) hypertension; M79.671 Pain in right foot | CPT/HCPCS: 11042; 87070; 87077; 87186; 87205; 99203; 99214 ==

== ENCOUNTER → 2023-08-06 18:47 | Outpatient (CLI) | payer MEDICARE, BC, SELFPAY ==
--- NOTE | 2023-08-06 18:48 | DI.MRI.S_ITS ---
PROCEDURE: MR ANKLE RT WO/W CON INDICATIONS: non-healing ulcer on right heel TECHNIQUE: Noncontrast sagittal T1 spin echo and T2 fast spin echo with fat saturation, axial proton density fast spin echo and T2 fast spin echo with fat saturation, axial T1 spin echo with fat saturation, coronal T1 spin echo and T2 fast spin echo with fat saturation through the ankle/hindfoot. Post-contrast axial, coronal, and sagittal T1 spin echo with fat saturation through the ankle/hindfoot. COMPARISON: [facility], CR, XR FOOT RT MIN 3V, 07/31/2023, 10:53. FINDINGS: Image quality: Diagnostic. Patient motion is noted. Bones and joints: Osteoarthritic changes are noted throughout midfoot and hindfoot joints. There is mild marrow edema involving posterior periphery of right calcaneus between distal Achilles tendon insertion and its insertion of plantar fascia with subtle cortical thinning concerning for erosion. Mild contrast enhancement in this area is also noted. No acute fracture or dislocation. No definite osteochondral injuries of talar dome. Small amount of tibiotalar joint effusion is seen, no loose bodies. Medial structures: The posterior tibialis, flexor digitorum longus, and flexor hallucis longus tendons are intact. The posterior tibial neurovascular bundle appears normal within the tarsal tunnel, without extrinsic mass effect. The deltoid ligament and spring ligament are thickened. Lateral structures: The anterior talofibular, calcaneofibular, and posterior talofibular ligaments appear mildly thickened. More superiorly, the anterior and posterior tibiofibular ligaments appear intact, as is the intermalleolar ligament. The tibiofibular syndesmosis is normal in width at 2 mm or less. The peroneus longus and brevis tendons are within normal limits. The sinus tarsi demonstrates normal fatty signal, without edema, fibrosis, or cyst formation. Visualized sinus tarsi components (cervical ligament, interosseous talocalcaneal ligament, roots of the inferior extensor retinaculum) appear normal. Anterior structures: The tibialis anterior, extensor hallucis longus, and extensor digitorum longus tendons appear intact. The dorsal talonavicular ligament appears intact. Posterior and plantar structures: Ulceration involving posterior aspect of right heel just inferior to the level of distal Achilles tendon insertion on posterior calcaneus is seen with surrounding soft tissue edema and swelling and heterogeneous contrast enhancement. No discrete drainable abscess collection. Achilles tendon is intact. Medial and lateral bands of the plantar fascia are of normal thickness. No abductor digiti quinti muscle atrophy to suggest Diaz neuropathy. IMPRESSION: 1. Full-thickness ulceration involving posterior aspect of right heel with surrounding cellulitis. No discrete drainable abscess collection. 2. Suggestion of osteomyelitis involving posterior and inferior periphery of calcaneus adjacent to the site of ulceration. 3. No other area of abnormal marrow signal or intraosseous enhancement. [id number] midfoot and hindfoot joint osteoarthritis. No acute fracture or dislocation. 4. Low-grade medial ankle ligament sprain. Low-grade sprain involving anterior and posterior talofibular ligaments and calcaneofibular ligament. No full-thickness ankle ligament rupture. 5. Extensor, flexor, and peroneus tendons are grossly intact. Achilles tendon is intact. Dictated by: Silvestre Hunter M.D. on 08/07/2023 at 16:16 Approved by: Silvestre Hunter M.D. on 08/07/2023 at 16:20
== END ==
PROVIDERS: Family Provider Family Medicine; PCP Family Medicine; Referring Provider Surgery; Visit Provider Surgery
DX: L89.613 Pressure ulcer of right heel, stage 3 (principal); L03.115 Cellulitis of right lower limb; S93.491A Sprain of other ligament of right ankle, initial encounter; S93.411A Sprain of calcaneofibular ligament of right ankle, initial encounter; M19.071 Primary osteoarthritis, right ankle and foot
CPT/HCPCS: 73723; A9579

== ENCOUNTER → 2023-08-07 14:18 | Outpatient (CLI) | payer MEDICARE, BC, SELFPAY | LOC: WC 14:19 | PROVIDERS: Family Provider Family Medicine; PCP Family Medicine; Referring Provider Physician Assistant Medical; Visit Provider Surgery | DX: L89.321 Pressure ulcer of left buttock, stage 1 (principal); L89.613 Pressure ulcer of right heel, stage 3; L03.115 Cellulitis of right lower limb; L53.9 Erythematous condition, unspecified; R60.0 Localized edema; I10 Essential (primary) hypertension; I25.10 Atherosclerotic heart disease of native coronary artery without angina pectoris | CPT/HCPCS: 11042; 99213 ==

== ENCOUNTER → 2023-09-18 14:43 | Outpatient (CLI) | payer MEDICARE, BC, SELFPAY ==
[2023-08-07 21:12] VITALS: BMI 22.1
== END ==
LOC: WC 14:46
PROVIDERS: Family Provider Family Medicine; PCP Family Medicine; Referring Provider Physician Assistant Medical; Visit Provider Surgery
DX: L89.614 Pressure ulcer of right heel, stage 4 (principal); M86.171 Other acute osteomyelitis, right ankle and foot; Z79.2 Long term (current) use of antibiotics
CPT/HCPCS: 11042; 87070; 87075; 87077; 87205; 99213

== ENCOUNTER → 2023-09-27 14:27 | Outpatient (CLI) | payer MEDICARE, BC, SELFPAY ==
[2023-08-07 21:12] VITALS: BMI 22.1
== END ==
LOC: WC 14:28
PROVIDERS: Family Provider Family Medicine; PCP Family Medicine; Referring Provider Physician Assistant Medical; Visit Provider Nurse Practitioner Family
DX: L89.614 Pressure ulcer of right heel, stage 4 (principal); R60.0 Localized edema; I10 Essential (primary) hypertension; I25.10 Atherosclerotic heart disease of native coronary artery without angina pectoris; M62.81 Muscle weakness (generalized); D64.9 Anemia, unspecified
CPT/HCPCS: 11042

== ENCOUNTER → 2023-10-03 15:19 | Outpatient (CLI) | payer MEDICARE, BC, SELFPAY ==
[2023-08-07 21:12] VITALS: BMI 22.1
== END ==
LOC: WC 15:21
PROVIDERS: Family Provider Family Medicine; PCP Family Medicine; Referring Provider Physician Assistant Medical; Visit Provider Surgery
DX: L89.614 Pressure ulcer of right heel, stage 4 (principal); M86.171 Other acute osteomyelitis, right ankle and foot; I10 Essential (primary) hypertension; D64.9 Anemia, unspecified; I25.10 Atherosclerotic heart disease of native coronary artery without angina pectoris; Z79.2 Long term (current) use of antibiotics
CPT/HCPCS: 11042

== ENCOUNTER → 2023-10-08 14:49 | Outpatient (CLI) | payer MEDICARE, BC, SELFPAY ==
[2023-08-07 21:12] VITALS: BMI 22.1
== END ==
LOC: WC 14:50
PROVIDERS: Family Provider Family Medicine; PCP Family Medicine; Referring Provider Physician Assistant Medical; Visit Provider Surgery
DX: L89.614 Pressure ulcer of right heel, stage 4 (principal); M86.171 Other acute osteomyelitis, right ankle and foot; R60.0 Localized edema; Z79.2 Long term (current) use of antibiotics
CPT/HCPCS: 11042

== ENCOUNTER → 2023-10-15 15:25 | Outpatient (CLI) | payer MEDICARE, BC, SELFPAY ==
[2023-08-07 21:12] VITALS: BMI 22.1
== END ==
LOC: WC 15:26
PROVIDERS: Family Provider Family Medicine; PCP Family Medicine; Referring Provider Physician Assistant Medical; Visit Provider Surgery
DX: L89.614 Pressure ulcer of right heel, stage 4 (principal); M86.171 Other acute osteomyelitis, right ankle and foot; R60.0 Localized edema
CPT/HCPCS: 11042

== ENCOUNTER → 2023-11-05 13:28 | Outpatient (CLI) | payer MEDICARE, BC, SELFPAY ==
[2023-08-07 21:12] VITALS: BMI 22.1
== END ==
LOC: WC 13:29
PROVIDERS: Family Provider Family Medicine; PCP Family Medicine; Referring Provider Physician Assistant Medical; Visit Provider Surgery
DX: L89.614 Pressure ulcer of right heel, stage 4 (principal); L84 Corns and callosities; R60.0 Localized edema; M86.171 Other acute osteomyelitis, right ankle and foot; I25.10 Atherosclerotic heart disease of native coronary artery without angina pectoris; I10 Essential (primary) hypertension; M62.81 Muscle weakness (generalized)
CPT/HCPCS: 15275; 99213; Q4160

== ENCOUNTER → 2023-11-12 15:26 | Outpatient (CLI) | payer MEDICARE, BC, SELFPAY ==
[2023-08-07 21:12] VITALS: BMI 22.1
== END ==
LOC: WC 15:28
PROVIDERS: Family Provider Family Medicine; PCP Family Medicine; Referring Provider Physician Assistant Medical; Visit Provider Surgery
DX: L89.614 Pressure ulcer of right heel, stage 4 (principal); L84 Corns and callosities; R23.4 Changes in skin texture; M86.171 Other acute osteomyelitis, right ankle and foot
CPT/HCPCS: 99213

== ENCOUNTER → 2023-11-19 14:31 | Outpatient (CLI) | payer MEDICARE, BC, SELFPAY ==
[2023-08-07 21:12] VITALS: BMI 22.1
== END ==
LOC: WC 14:32
PROVIDERS: Family Provider Family Medicine; PCP Family Medicine; Referring Provider Physician Assistant Medical; Visit Provider Surgery
DX: Z09 Encounter for follow-up examination after completed treatment for conditions other than malignant neoplasm (principal); Z87.2 Personal history of diseases of the skin and subcutaneous tissue; L89.614 Pressure ulcer of right heel, stage 4
CPT/HCPCS: 99211; 99213

== ENCOUNTER → 2023-12-04 14:51 | Outpatient (CLI) | payer MEDICARE, BC, SELFPAY ==
[2023-08-07 21:12] VITALS: BMI 22.1
== END ==
LOC: WC 14:52
PROVIDERS: Family Provider Family Medicine; PCP Family Medicine; Referring Provider Physician Assistant Medical; Visit Provider Surgery
DX: Z09 Encounter for follow-up examination after completed treatment for conditions other than malignant neoplasm (principal); Z87.2 Personal history of diseases of the skin and subcutaneous tissue; L89.614 Pressure ulcer of right heel, stage 4; M86.171 Other acute osteomyelitis, right ankle and foot
CPT/HCPCS: 99212; 99213

== ENCOUNTER 2024-02-10 14:08 | Inpatient (IN) | payer MEDICARE, BC, SELFPAY ==
[2023-08-07 21:12] VITALS: BMI 22.1
[2024-02-10] VITALS (14 sets, daily range): BP systolic 107–187; BP diastolic 21–88; PULSE 47–70; RESP 12–34; TEMP 36–36.8; O2SAT 92–100; BMI 20.9
--- NOTE | 2024-02-10 14:58 | EKG_ITS ---
[place] [id number] [place] [id number] Test Date: 2024-02-10 Pat Name: Tanner Randhawa Department: [facility] Room: Gender: Male Dupligraph Operator: TREVOR : 1935 Requested By: Order Number: [id number] Reading MD: Simon Walker Measurements Intervals [place] Rate: 61 P: OR: QRS: 6 QRSD: 134 T: -37 QT: 426 QTc: 428 Interpretive Statements atrial fibrillation Right bundle branch block no prior tracings Electronically Signed On 02-12-2024 19:42:15 PST by Simon Walker
--- NOTE | 2024-02-10 15:00 | PC.NURSE ---
Pt's daughter Joe at bedside. [place] (who has dementia) and a live-in caregiver. Per Joe, pt is feeling worse with decreased responsiveness and decrease PO intake. Pt responsive to voice and immediately closes his eyes after talking with him. Pt denied SOB, dizziness, or pain. Pt is tachypneic and appears lethargic. He is confused and responds we are in [place] with is abnormal to baseline. Lung sounds course crackles. Daughter mentioned concern for pt's right heel of his foot which had a healing wound on. Right heel does not appear infected with no redness or swelling. There is some hard skin formed from wound.
--- NOTE | 2024-02-10 15:05 | ED.SOB ---
HPI - SOB/Dyspnea General Chief Complaint: Shortness of Breath/Dyspnea Stated Complaint: return from 02/08 not better, getting worse Time Seen by Provider: 02/10/24 15:05 Source: patient and family Mode of arrival: Family Vehicle History of Present Illness HPI Narrative: Patient 88-year-old male history of coronary artery disease atrial fibrillation, on digoxin but no anticoagulation, CML hypertension ELISA iron-deficiency anemia presenting today with increasing weakness and confusion. He was seen evaluated here last night diagnosed with probable pneumonia started on azithromycin. However there was issue with the pharmacy today pharmacist would not fill azithromycin due to interaction with digoxin. I actually did change it to doxycycline however due to his mental status the daughter just brought him here. He has not eating he has not drinking he is minimally arousable. He does fall quite frequently has had many broken bones previously he has not fallen today. Not on anticoagulation. Daughter is primary historian he is unable to give adequate history. ED records from last night have been reviewed as well Related Data Home Medications Medication Instructions Recorded Confirmed digoxin 125 mcg (0.125 mg) tablet 125 mcg PO DAILY 07/26/23 08/07/23 gabapentin 100 mg capsule 100 mg PO BEDTIME 07/26/23 08/08/23 hydrochlorothiazide 12.5 mg tablet 12.5 mg PO DAILY 07/26/23 08/07/23 levothyroxine 25 mcg tablet 25 mcg PO BEDTIME 07/26/23 08/08/23 lisinopril 5 mg tablet 5 mg PO DAILY 07/26/23 08/07/23 metoprolol succinate 25 mg 50 mg PO BID 07/26/23 08/07/23 tablet,extended release 24 hr mirtazapine 15 mg tablet 15 mg PO QPM 07/26/23 08/08/23 Calcium With Vitamin D3 1 tab PO QPM 08/07/23 08/07/23 Previous Rx's Medication Instructions Recorded daptomycin 350 mg intravenous 590 mg IV Q24H #10 ea 08/14/23 solution ertapenem 1 gram solution for 1 g IV Q24H #5 ea 08/14/23 injection azithromycin 250 mg tablet 250 mg PO DAILY 4 days #4 tabs 02/09/24 Allergies Allergy/AdvReac Type Severity Reaction Status Date / Time No Known Drug Allergies Allergy Verified 02/09/24 18:08 Patient History Medical History Actinic keratosis (12/05/04) Compression fracture of first lumbar vertebra Restless legs syndrome (RLS) Osteoporosis (~2017) Compression fracture of thoracic vertebra CMML (chronic myelomonocytic leukemia) (~2018) Neutropenia (06/19/16) Essential hypertension (03/06/16) Aortic sclerosis (07/08/15) Malignant neoplasm of prostate (07/08/15) Other iron deficiency anemia (07/08/15) Obstructive sleep apnea syndrome (07/08/15) Mixed hyperlipidemia (01/08/03) Erectile dysfunction due to arterial insufficiency (07/08/15) Coronary artery disease involving [place] coronary artery of [place] heart without angina pectoris (07/08/15) Surgical History S/P CABG x 4 Hip joint replacement status History of tonsillectomy and adenoidectomy Status post appendectomy Family History Father Mental health problem Social History marital status: details: trang Tam, lives [place] [address] the summer number of children: 3 household members: family lives independently: Yes caregiver/support person: No housing: house occupational status: previously employed Smoking Status: Never smoker alcohol intake: never Smoking Status: Never smoker alcohol intake frequency: 0-2 drinks per day Exam Initial Vital Signs Initial Vital Signs: Vital Signs Temperature 97.8 F 02/10/24 14:22 Pulse Rate 47 L 02/10/24 14:22 Respiratory Rate 16 02/10/24 14:22 Pulse Oximetry 96 02/10/24 14:22 Oxygen Delivery Method Room Air 02/10/24 14:22 GENERAL: Decreased mental status, responsive to pain and in no acute distress. HEENT: Head atraumatic,EOMI, pupils reactive, face symmetric, moist mucous membranes CARDIOVASCULAR: Regular rate and rhythm without murmurs, rubs or gallops. RESPIRATORY: Breath sounds equal bilaterally, no wheezes rales or rhonchi. ABDOMEN: Soft, nontender. Normoactive bowel sounds all 4 quadrants. No guarding or rebound. EXTREMITIES: Normal range of motion, no clubbing or edema. Neurovascularly intact NEUROLOGICAL: Sleeping responsive to pain SKIN: Warm, dry, no laceration, no petechiae, no rashes or lesions. Course Orders Ordered: ED Orders 02/10/24 14:53 EKG-12 Lead Stat 02/10/24 16:07 CBC Auto Diff [Complete Blood Count AUTO DIFF] Stat CMP [Comprehensive Metabolic Panel] Stat Digoxin Stat Lactate (Lactic Acid) Stat Troponin & CK Cardiac Panel Stat 02/10/24 16:20 Blood Culture Stat 02/10/24 16:26 CT head/brain wo con Stat 02/10/24 16:30 Chest [XR chest 1V] Stat 02/10/24 16:50 Respiratory Panel (Film Array) Stat Azithromycin (Azithromycin 250 Mg Tablet) 250 mg PO DAILY CARMEL Digoxin (Digoxin 0.125 Mg Tablet) 0.125 mg PO DAILY CARMEL Enoxaparin Sodium (Enoxaparin 40 Mg/0.4 Ml Syringe) 40 mg SUBCUT DAILY CARMEL Gabapentin (Gabapentin 100 Mg Capsule) 100 mg PO BEDTIME CARMEL Hydrochlorothiazide (Hydrochlorothiazide 25 Mg Tablet) 12.5 mg PO DAILY CARMEL Sodium Chloride (Normal Saline 0.9%) 1,000 mls @ 100 mls/hr IV CONT CARMEL Last Admin: 02/10/24 18:29 Dose: 100 mls/hr Documented By: SPF Sodium Chloride (Normal Saline 0.9%) 1,000 mls @ 75 mls/hr IV CONT CARMEL Stop: 02/12/24 06:00 Ceftriaxone Sodium 1,000 mg/ (Sodium Chloride) 100 mls @ 200 mls/hr IV Q24H CARMEL Levothyroxine Sodium (Levothyroxine 25 Mcg Tablet) 25 mcg PO BEDTIME CARMEL Lisinopril (Lisinopril 5 Mg Tablet) 5 mg PO DAILY CARMEL Metoprolol Succinate (Metoprolol Er 25 Mg Tablet) 50 mg PO BID CARMEL Mirtazapine (Mirtazapine 15 Mg Tablet) 15 mg PO QPM CARMEL Naloxone HCl (Naloxone 0.4 Mg/Ml Vial) 0.2 mg IV Q2MIN PRN PRN Reason: Opiate Reversal Discontinued Medications Ceftriaxone Sodium 2,000 mg/ (Sodium Chloride) 100 mls @ 200 mls/hr IV NOW ONE Stop: 02/10/24 16:27 Last Infusion: 02/10/24 17:25 Dose: Infused Documented By: Admin: 02/10/24 16:44 Dose: 200 mls/hr Documented By: SPF Azithromycin 500 mg/ Dextrose 250 mls @ 250 mls/hr IV NOW ONE Stop: 02/10/24 16:27 Last Admin: 02/10/24 17:34 Dose: 250 mls/hr Documented By: BEBE Vital Signs Vital signs: Vital Signs - 8 hr 02/10/24 14:22 02/10/24 14:52 02/10/24 15:00 Temperature 97.8 F Pulse Rate 47 L 50 L 60 Respiratory Rate 16 12 26 H Blood Pressure Pulse Oximetry 96 98 100 Oxygen Delivery Method Room Air Oxygen Flow Rate 02/10/24 15:14 02/10/24 15:20 02/10/24 15:30 Temperature Pulse Rate 54 L 62 60 Respiratory Rate 21 22 30 H Blood Pressure 161/21 H Pulse Oximetry 98 98 98 Oxygen Delivery Method Nasal Cannula Nasal Cannula Nasal Cannula Oxygen Flow Rate 02/10/24 15:30 02/10/24 16:41 02/10/24 16:45 Temperature Pulse Rate 64 61 60 Respiratory Rate 30 H 19 28 H Blood Pressure 187/88 H Pulse Oximetry 98 93 94 Oxygen Delivery Method Nasal Cannula Nasal Cannula Nasal Cannula Oxygen Flow Rate 1 1 1 02/10/24 16:50 02/10/24 17:19 02/10/24 17:19 Temperature Pulse Rate 57 L 51 L 70 Respiratory Rate 34 H 34 H Blood Pressure 172/84 H Pulse Oximetry 97 99 Oxygen Delivery Method Nasal Cannula Nasal Cannula Oxygen Flow Rate 1 1 MDM - SOB/Dyspnea Lab Data 02/10/24 16:07 02/10/24 16:07 Labs: Lab Results 02/10/24 02/10/24 Range/Units 16:07 16:50 WBC 4.4 L (4.5-11.0) X10^3/uL RBC 2.56 L (4.5-5.9) X10^6/uL Hgb 9.7 L (13.5-17.5) g/dL Hct 29.1 L (41-53) % MCV 113.6 H (80-100) fL MCH 38.0 H (26-34) PG MCHC 33.4 (30-36) % RDW 18.0 H (11.6-14.8) % Plt Count 101 L (150-400) X10^3/uL Neut % (Auto) Not Reportable Lymph % (Auto) Not Reportable [place] % (Auto) Not Reportable Eos % (Auto) Not Reportable Baso % (Auto) Not Reportable Lymph # (Auto) Not Reportable [place] # (Auto) Not Reportable Baso # (Auto) Not Reportable Total Counted 100 Seg Neutrophils % 21.0 L (38-70) % Lymphocytes % (Manual) 21.0 L (25-45) % Monocytes % (Manual) 52.0 H (2-11) % Eosinophils % (Manual) 2.0 (2-4) % Basophils % (Manual) 4.0 H (0-1) % Neutrophils # (Manual) 924 L (0999-9054) /uL RBC Morphology See below Macrocytosis 2+ H Acanthocytes (Spur) 1+ Sodium 140 (137-145) mmol/L Potassium 4.2 (3.4-5.1) mmol/L Chloride 108 H (98-107) mmol/L Carbon Dioxide 23 (22-32) mmol/L BUN 25 H (9-20) mg/dL Creatinine 0.84 (0.66-1.25) mg/dL Estimated GFR > 60 (>60) mL/min BUN/Creatinine Ratio 29.8 H (6-22) Glucose 102 (80-110) mg/dL Lactate 1.2 (0.7-2.1) mmol/L Calcium 8.9 (8.4-10.2) mg/dL Total Bilirubin 1.3 (0.2-1.3) mg/dL AST 43 (17-59) IU/L ALT 29 (<50) IU/L Alkaline Phosphatase 111 (38-126) U/L Total Creatine Kinase 75 (55-170) U/L Troponin I 0.022 (0.01-0.034) ng/mL Total Protein 8.1 (6.3-8.2) g/dL Albumin 4.0 (3.5-5.0) g/dL Globulin 4.1 (1.7-4.1) g/dL Albumin/Globulin Ratio 1.0 (1.0-2.8) Chlamy pneumoniae PCR Not detected (Not Detect) Adenovirus (PCR) Not detected (Not Detect) B. pertussis DNA (PCR) Not detected (Not Detect) B.parapertussis DNA PCR Not detected (Not Detecte) Coronavirus OC43 (PCR) Not detected (Not Detect) Coronavirus HKU1 (PCR) Not detected (Not Detect) Coronavirus 229E (PCR) Not detected (Not Detect) SARS-CoV-2 (PCR) Not detected (Not Detecte) Coronavirus NL63 (PCR) Not detected (Not Detect) Human Metapneumovir PCR Not detected (Not Detect) Influenza Type A (PCR) Not detected (Not Detect) Influenza Type B (PCR) Not detected (Not Detect) M. pneumoniae (PCR) Not detected (Not Detect) Parainfluenza 1 (PCR) Not detected (Not Detect) Parainfluenza 2 (PCR) Not detected (Not Detect) Parainfluenza 3 (PCR) Not detected (Not Detect) Parainfluenza 4 (PCR) Not detected (Not Detect) RSV (PCR) Not detected (Not Detect) Entero/Rhino (PCR) Not detected (Not Detect) Imaging Data CT scan - head: Radiologist's Impression: PROCEDURE: CT HEAD/BRAIN WO CON INDICATIONS: confusion TECHNIQUE: Noncontrast 4.5 mm thick angled axial sections acquired from the foramen magnum to the vertex, with coronal and sagittal reformats. For radiation dose reduction, the following was used: automated exposure control, adjustment of mA and/or kV according to patient size. COMPARISON: [facility], CT, CT HEAD/BRAIN WO CON, 02/09/2024, 19:00. FINDINGS: Image quality: Diagnostic. CSF spaces: Basal cisterns are patent. No extra-axial fluid collections. The ventricles are symmetric in size and shape. Brain: No intracranial bleeds or masses. There is cerebral volume loss for age, with resultant ventricular and sulcal prominence. There are periventricular and deep white matter chronic small vessel ischemic changes. There is intracranial internal carotid artery atherosclerosis. Skull and face: Calvarium and visualized facial bones appear intact, without suspicious lesions. Sinuses: Visualized sinuses and mastoids are clear. IMPRESSION: No acute intracranial pathology. Dictated by: Rosalba Rice M.D. on 02/10/2024 at 16:46 Chest x-ray: Radiologist's Impression: PROCEDURE: XR CHEST 1V INDICATIONS: pneumonia pleural effusion TECHNIQUE: One view of the chest was acquired. COMPARISON: [facility], CR, XR CHEST 1V, 02/09/2024, 19:35. [facility], CR, XR CHEST FOR PICC 1V, 08/11/2023, 14:10. FINDINGS: Surgical changes and devices: Median sternotomy wires are present. Lungs and pleura: There is no significant interval change in the right mid lung consolidation with prominence of the central pulmonary vasculature. Bilateral small pleural effusions are likely as the hemidiaphragms are somewhat obscured. The lungs are hypoinflated. Mediastinum: Mediastinal contours appear normal. Heart size is normal. Bones and chest wall: No suspicious bony lesions. Overlying soft tissues appear unremarkable. IMPRESSION: Unchanged right midlung consolidation with central pulmonary vascular congestion and likely a component of bilateral effusions. Dictated by: Rosalba Rice M.D. on 02/10/2024 at 16:43 ECG Data Attestation: I personally reviewed and interpreted this ECG as follows: Prior ECG tracings: available for review Interpretation: Irregular rhythm right bundle-branch block no priors to compare no ischemia MDM Narrative Medical decision making narrative: MDM CC: Confusion altered mental status Complicating co-morbidities: Corroborating data: Daughter Medical records reviewed: ED visit from last night Differential considered: Sepsis, Exam documented above, pertinent findings include: Weak confused responsive to pain coarse breath sounds bilaterally Lab Test results independently reviewed as above. Pertinent findings: WBC 4.4 decreased from yesterday at 6.6, anemia stable hemoglobin 9.7 hematocrit 29.1 previously 9.5/28.6 CMP shows stable electrolytes creatinine 0.84 Lactate 1.2 Troponin 0.022 Independently reviewed EKG as above no ischemia right bundle-branch block irregular Imaging studies independently reviewed: Unchanged pneumonia on right side Head CT no acute intracranial process Consultations: Dr. Peterson in ED to see and evaluate Treatments: Rocephin azithromycin IV fluids Discussion: Patient 88-year-old male presents today with increasing weakness decreased oral intake. Diagnosed with pneumonia last night was appropriate for discharge then. However increasing confusion today. Blood work today remains overall reassuring. He is requiring about L of oxygen. X-ray again confirms persistent pneumonia. No sign of severe sepsis. He has a normal lactic acid. Discharge Plan Departure Patient Disposition: Admitted As Inpatient Clinical Impression: Pneumonia, Encephalopathy, metabolic Admit Date/Time: 02/10/24 18:05 Admit Provider: Raf Peterson
--- NOTE | 2024-02-10 16:10 | PC.NURSE ---
Repositioned pt in bed with pillows to float his heels. Pt's brief wet with urine and changed with clean brief. Barrier cream previously applied [employer] to rosy area. Pt has blanchable redness to his buttocks. Attempted to obtain new urine sample but pt unable to void into urinal. Provider notified. Provider Ok to start antibiotics without urine sample. 2x sets of blood cultures drawn prior to antibiotic administration.
--- NOTE | 2024-02-10 16:26 | DI.CT.S_ITS ---
PROCEDURE: CT HEAD/BRAIN WO CON INDICATIONS: confusion TECHNIQUE: Noncontrast 4.5 mm thick angled axial sections acquired from the foramen magnum to the vertex, with coronal and sagittal reformats. For radiation dose reduction, the following was used: automated exposure control, adjustment of mA and/or kV according to patient size. COMPARISON: [facility], CT, CT HEAD/BRAIN WO CON, 02/09/2024, 19:00. FINDINGS: Image quality: Diagnostic. CSF spaces: Basal cisterns are patent. No extra-axial fluid collections. The ventricles are symmetric in size and shape. Brain: No intracranial bleeds or masses. There is cerebral volume loss for age, with resultant ventricular and sulcal prominence. There are periventricular and deep white matter chronic small vessel ischemic changes. There is intracranial internal carotid artery atherosclerosis. Skull and face: Calvarium and visualized facial bones appear intact, without suspicious lesions. Sinuses: Visualized sinuses and mastoids are clear. IMPRESSION: No acute intracranial pathology. Dictated by: Rosalba Rice M.D. on 02/10/2024 at 16:46 Approved by: Rosalba Rice M.D. on 02/10/2024 at 16:48
--- NOTE | 2024-02-10 16:30 | DI.RAD.S_ITS ---
PROCEDURE: XR CHEST 1V INDICATIONS: pneumonia pleural effusion TECHNIQUE: One view of the chest was acquired. COMPARISON: [facility], CR, XR CHEST 1V, 02/09/2024, 19:35. [facility], CR, XR CHEST FOR PICC 1V, 08/11/2023, 14:10. FINDINGS: Surgical changes and devices: Median sternotomy wires are present. Lungs and pleura: There is no significant interval change in the right mid lung consolidation with prominence of the central pulmonary vasculature. Bilateral small pleural effusions are likely as the hemidiaphragms are somewhat obscured. The lungs are hypoinflated. Mediastinum: Mediastinal contours appear normal. Heart size is normal. Bones and chest wall: No suspicious bony lesions. Overlying soft tissues appear unremarkable. IMPRESSION: Unchanged right midlung consolidation with central pulmonary vascular congestion and likely a component of bilateral effusions. Dictated by: Rosalba Rice M.D. on 02/10/2024 at 16:43 Approved by: Rosalba Rice M.D. on 02/10/2024 at 16:45
[2024-02-10 16:41] LABS: Hematocrit 29.1 % (41-53); Hemoglobin 9.7 g/dL (13.5-17.5); Mean Corpuscular HGB Conc 33.4 % (30-36); Mean Corpuscular Volume 113.6 fL (80-100); Platelet Count 101 X10^3/uL (150-400); Red Blood Cell Count 2.56 X10^6/uL (4.5-5.9); White Blood Cell Count 4.4 X10^3/uL (4.5-11.0)
[2024-02-10 16:42] LABS: Add Manual Diff / Slide Review YES
[2024-02-10] MEDS: cefTRIAXone 2,000 MG in SODIUM CHLORIDE 0.9% 100 ML 200 MG IV (16:44)
[2024-02-10 16:48] LABS: Alanine Aminotransferase 29 IU/L (<50); Alkaline Phosphatase 111 U/L (38-126); Aspartate Aminotransferase 43 IU/L (17-59); BUN Creatinine Ratio 29.8 (6-22); Bilirubin Total 1.3 mg/dL (0.2-1.3); Blood Urea Nitrogen 25 mg/dL (9-20); Calcium 8.9 mg/dL (8.4-10.2); Carbon Dioxide 23 mmol/L (22-32); Chloride 108 mmol/L (98-107); Creatine Kinase 75 U/L (55-170); Estimated Glomerular Filt Rate > 60 mL/min (>60); Globulin 4.1 g/dL (1.7-4.1); Glucose 102 mg/dL (80-110); HEMOLYSIS < 15 (0-50); Lactate (Lactic Acid) 1.2 mmol/L (0.7-2.1); Potassium 4.2 mmol/L (3.4-5.1); Sodium 140 mmol/L (137-145); Total Protein 8.1 g/dL (6.3-8.2)
[2024-02-10 16:59] LABS: Troponin I 0.022 ng/mL (0.01-0.034)
[2024-02-10 17:12] LABS: Acanthocytes 1+; Macrocytosis 2+; Neutrophils Absolute Manual 924 /uL (3000-5900); Total Cells Counted 100
[2024-02-10] MEDS: AZITHROMYCIN 500 MG in DEXTROSE 5% IN WATER 250 ML 250 MG IV (17:34)
[2024-02-10 17:48] LABS: Adenovirus Not Detected (Not Detect); B. parapertussis Not Detected (Not Detecte); Bordetella pertussis Not Detected (Not Detect); Chlamydophila pneumoniae Not Detected (Not Detect); Coronavirus 229E Not Detected (Not Detect); Coronavirus HKU1 Not Detected (Not Detect); Coronavirus NL 63 Not Detected (Not Detect); Coronavirus OC43 Not Detected (Not Detect); Human Metapneumovirus Not Detected (Not Detect); Human Rhinovirus/Enterovirus Not Detected (Not Detect); Influenza A Not Detected (Not Detect); Influenza B Not Detected (Not Detect); Mycoplasma pneumoniae Not Detected (Not Detect); Parainfluenza Virus 1 Not Detected (Not Detect); Parainfluenza Virus 2 Not Detected (Not Detect); Parainfluenza Virus 3 Not Detected (Not Detect); Parainfluenza Virus 4 Not Detected (Not Detect); Respiratory Syncytial Virus Not Detected (Not Detect); SARS- CoV-2 Not Detected (Not Detecte)
--- NOTE | 2024-02-10 18:12 | PM.HP.1 ---
History of Present Illness History of Present Illness Date Patient Seen: 02/10/24 Time Patient Seen: 18:33 Chief complaint: return from 02/08 not better, getting worse Narrative: This is an 88-year-old male with coronary artery disease, restless legs syndrome, osteoporosis, CMML, hypertension thrombocytopenia, iron-deficiency anemia and sleep apnea who presents from [place] with right lower lobe pneumonia. He has been weak, tired and sleepy for the last 7 days after returning from a 17 day cruise. He flew home from [place] to [place] and has been falling down, weak since then. He was diagnosed with pneumonia last night in the ED and treated with oral antibiotics which he was not able to get because of potential interactions with digoxin. He returns with continued symptoms and is now mildly hypoxic requiring 1 L of oxygen. He has had no fevers, chills, chest pain, coughing or shortness of breath. He has a broken finger from a fall this week. [facility] Medical History Actinic keratosis (12/05/04) Compression fracture of first lumbar vertebra Restless legs syndrome (RLS) Osteoporosis (~2017) Compression fracture of thoracic vertebra CMML (chronic myelomonocytic leukemia) (~2018) Neutropenia (06/19/16) Essential hypertension (03/06/16) Aortic sclerosis (07/08/15) Malignant neoplasm of prostate (07/08/15) Other iron deficiency anemia (07/08/15) Obstructive sleep apnea syndrome (07/08/15) Mixed hyperlipidemia (01/08/03) Erectile dysfunction due to arterial insufficiency (07/08/15) Coronary artery disease involving [place] coronary artery of [place] heart without angina pectoris (07/08/15) Surgical History S/P CABG x 4 Hip joint replacement status History of tonsillectomy and adenoidectomy Status post appendectomy Family History Father Mental health problem Social History marital status: details: trang Tam, lives on [place] in the summer number of children: 3 household members: family lives independently: Yes caregiver/support person: No housing: house occupational status: previously employed Smoking Status: Never smoker alcohol intake: never Meds Home Medications and Allergies Home Medications Medication Instructions Recorded Confirmed Type digoxin 125 mcg (0.125 mg) tablet 125 mcg PO DAILY 07/26/23 08/07/23 History gabapentin 100 mg capsule 100 mg PO BEDTIME 07/26/23 08/08/23 History hydrochlorothiazide 12.5 mg tablet 12.5 mg PO DAILY 07/26/23 08/07/23 History levothyroxine 25 mcg tablet 25 mcg PO BEDTIME 07/26/23 08/08/23 History lisinopril 5 mg tablet 5 mg PO DAILY 07/26/23 08/07/23 History metoprolol succinate 25 mg 50 mg PO BID 07/26/23 08/07/23 History tablet,extended release 24 hr mirtazapine 15 mg tablet 15 mg PO QPM 07/26/23 08/08/23 History Calcium With Vitamin D3 1 tab PO QPM 08/07/23 08/07/23 History daptomycin 350 mg intravenous 590 mg IV Q24H #10 ea 08/14/23 Rx solution ertapenem 1 gram solution for 1 g IV Q24H #5 ea 08/14/23 Rx injection azithromycin 250 mg tablet 250 mg PO DAILY 4 days #4 tabs 02/09/24 Rx Allergies Allergy/AdvReac Type Severity Reaction Status Date / Time No Known Drug Allergies Allergy Verified 02/09/24 18:08 Review of Systems Review of Systems Narrative: Positive for fatigue, decreased alertness, broken finger, falling. Negative for fevers, chills, sweats, chest pain, shortness breast, coughing, nausea, vomiting, abdominal pain, bleeding, rashes, sore throat, seizures, new allergies. Exam Vital Signs (past 8 hours): - 02/10/24 14:22 02/10/24 14:52 02/10/24 15:00 Temperature 97.8 F Pulse Rate 47 L 50 L 60 Respiratory Rate 16 12 26 H Blood Pressure Pulse Oximetry 96 98 100 Oxygen Delivery Method Room Air Oxygen Flow Rate 02/10/24 15:14 02/10/24 15:20 02/10/24 15:30 Temperature Pulse Rate 54 L 62 60 Respiratory Rate 21 22 30 H Blood Pressure 161/21 H Pulse Oximetry 98 98 98 Oxygen Delivery Method Nasal Cannula Nasal Cannula Nasal Cannula Oxygen Flow Rate 02/10/24 15:30 02/10/24 16:41 02/10/24 16:45 Temperature Pulse Rate 64 61 60 Respiratory Rate 30 H 19 28 H Blood Pressure 187/88 H Pulse Oximetry 98 93 94 Oxygen Delivery Method Nasal Cannula Nasal Cannula Nasal Cannula Oxygen Flow Rate 1 1 1 02/10/24 16:50 02/10/24 17:19 02/10/24 17:19 Temperature Pulse Rate 57 L 51 L 70 Respiratory Rate 34 H 34 H Blood Pressure 172/84 H Pulse Oximetry 97 99 Oxygen Delivery Method Nasal Cannula Nasal Cannula Oxygen Flow Rate 1 1 Oxygen Delivery Method Nasal Cannula Oxygen Flow Rate 1 Narrative Exam Narrative: The patient is obtunded, sleeping very deeply and does not readily engage or respond. His son-in-law is at bedside and answers questions as best as possible. Pupillary exam is limited. There is no icterus. Pharyngeal appearance is limited but appears to be somewhat dry. No lymph nodes are felt head, neck, supraclavicular area. There is no thyromegaly. JVD is less than 6 cm. No carotid bruits are heard. Heart is irregularly irregular without murmur Right lung crackles are noticeable. Left lung is clear. Chest wall sternal scar intact. Abdomen is soft, bowel sounds positive, nontender, no organomegaly. Extremities have no ankle edema. Skin has no rash but does have several bruises. Neurological exam is quite limited as the patient is sleeping deeply/obtunded. No lateralizing deficits seen. No tremor seen. No facial asymmetry. Objective Imaging CT scan - head: Radiologist's impression: FINDINGS: Image quality: Diagnostic. CSF spaces: Basal cisterns are patent. No extra-axial fluid collections. The ventricles are symmetric in size and shape. Brain: No intracranial bleeds or masses. There is cerebral volume loss for age, with resultant ventricular and sulcal prominence. There are periventricular and deep white matter chronic small vessel ischemic changes. There is intracranial internal carotid artery atherosclerosis. Skull and face: Calvarium and visualized facial bones appear intact, without suspicious lesions. Sinuses: Visualized sinuses and mastoids are clear. IMPRESSION: No acute intracranial pathology. Chest x-ray: Radiologist's impression: FINDINGS: Surgical changes and devices: Median sternotomy wires are present. Lungs and pleura: There is no significant interval change in the right mid lung consolidation with prominence of the central pulmonary vasculature. Bilateral small pleural effusions are likely as the hemidiaphragms are somewhat obscured. The lungs are hypoinflated. Mediastinum: Mediastinal contours appear normal. Heart size is normal. Bones and chest wall: No suspicious bony lesions. Overlying soft tissues appear unremarkable. IMPRESSION: Unchanged right midlung consolidation with central pulmonary vascular congestion and likely a component of bilateral effusions. Labs 02/10/24 16:07 02/10/24 16:07 Labs: Laboratory Results - last 24 hr 02/10/24 02/10/24 16:07 16:50 WBC 4.4 L RBC 2.56 L Hgb 9.7 L Hct 29.1 L MCV 113.6 H MCH 38.0 H MCHC 33.4 RDW 18.0 H Plt Count 101 L Neut % (Auto) Not Reportable Lymph % (Auto) Not Reportable [place] % (Auto) Not Reportable Eos % (Auto) Not Reportable Baso % (Auto) Not Reportable Lymph # (Auto) Not Reportable [place] # (Auto) Not Reportable Baso # (Auto) Not Reportable Total Counted 100 Seg Neutrophils % 21.0 L Lymphocytes % (Manual) 21.0 L Monocytes % (Manual) 52.0 H Eosinophils % (Manual) 2.0 Basophils % (Manual) 4.0 H Neutrophils # (Manual) 924 L RBC Morphology See below Macrocytosis 2+ H Acanthocytes (Spur) 1+ Sodium 140 Potassium 4.2 Chloride 108 H Carbon Dioxide 23 BUN 25 H Creatinine 0.84 Estimated GFR > 60 BUN/Creatinine Ratio 29.8 H Glucose 102 Lactate 1.2 Calcium 8.9 Total Bilirubin 1.3 AST 43 ALT 29 Alkaline Phosphatase 111 Total Creatine Kinase 75 Troponin I 0.022 Total Protein 8.1 Albumin 4.0 Globulin 4.1 Albumin/Globulin Ratio 1.0 Chlamy pneumoniae PCR Not detected Adenovirus (PCR) Not detected B. pertussis DNA (PCR) Not detected B.parapertussis DNA PCR Not detected Coronavirus OC43 (PCR) Not detected Coronavirus HKU1 (PCR) Not detected Coronavirus 229E (PCR) Not detected SARS-CoV-2 (PCR) Not detected Coronavirus NL63 (PCR) Not detected Human Metapneumovir PCR Not detected Influenza Type A (PCR) Not detected Influenza Type B (PCR) Not detected M. pneumoniae (PCR) Not detected Parainfluenza 1 (PCR) Not detected Parainfluenza 2 (PCR) Not detected Parainfluenza 3 (PCR) Not detected Parainfluenza 4 (PCR) Not detected RSV (PCR) Not detected Entero/Rhino (PCR) Not detected Assessment & Plan Assessment & Plan narrative: This is an 88-year-old male with right lower lobe pneumonia with symptoms limited to mild hypoxia and extreme fatigue. He became tired and increasingly unable to interact over the last week after returning from a cruise to [place] and flight back from [place]. Right lower lobe pneumonia -likely aspiration related -respiratory panel including COVID and influenza is negative. -white blood count is 4.4. -on my review of his chest x-ray he has significant right middle and lower lobe infiltrates. -This does not appear to be pulmonary edema -treat with azithromycin and ceftriaxone. -oxygen as needed to keep sats at 90%. -he is full code pending confirmation/clarification with family. AMS-Somnolence -No CVA see on CT scan -Likely secondary to Pneumonia Atrial fibrillation -this appears to be stable -he has not on anticoagulation due to frequent falls -he remains on digoxin 0.125 mg daily and level be drawn and followed while on Zithromax. -Metoprolol Macrocytic anemia -Probably CMML related - Chronic Myelomonocytic Leukemia -hemoglobin 9.7 with MCV 113. -Check B12 and Iron Level CAD/HTN -S/P CABG -Metoprolol/Lisinopril/HCTZ Hypothyroidism -Levothyroxine -TSH 3.15 Lovenox for DVT Prevention His backup decision makers are his daughter and . Time-Based Coding :: [TOTAL MINUTES] spent with patient and on the chart (including review of chart, obtaining history, exam, reviewing outside data, placing orders, documenting exam and treatment plan, and counseling patient) on [DATE].
[2024-02-10] MEDS: SODIUM CHLORIDE 0.9% 1,000 ML 100 ML IV (18:29)
[2024-02-10 18:37] LABS: Digoxin 0.8 ng/mL (0.8-2.0)
[2024-02-10] MEDS: SODIUM CHLORIDE 0.9% 1,000 ML 75 ML IV (20:34)
--- NOTE | 2024-02-10 21:18 | PC.NURSE ---
Pt admitted tonight around 1900, pt non verbal at the time, pt daughter's answered all the admission questions and verified all his medication and patient code status which daughter said is DNR. A copy of the POLST form was obtain and maintenance technician 2nd shift Dr. Lopez was notified. No new orders received.
[2024-02-11] VITALS (10 sets, daily range): BP systolic 133–169; BP diastolic 56–79; PULSE 48–63; RESP 20–34; TEMP 36.2–36.7; O2SAT 92–99
[2024-02-11 05:27] LABS: Add Manual Diff / Slide Review YES; Hematocrit 23.7 % (41-53); Hemoglobin 8.1 g/dL (13.5-17.5); Mean Corpuscular HGB Conc 34.2 % (30-36); Mean Corpuscular Hemoglobin 38.3 PG (26-34); Platelet Count 84 X10^3/uL (150-400); Red Blood Cell Count 2.11 X10^6/uL (4.5-5.9); Red Cell Distribution Width 17.5 % (11.6-14.8); White Blood Cell Count 4.3 X10^3/uL (4.5-11.0)
[2024-02-11 05:30] LABS: HEMOLYSIS < 15 (0-50); Iron 65 ug/dL (49-181)
[2024-02-11 05:32] LABS: Acanthocytes 1+; Anisocytosis 1+; Macrocytosis 1+; Microcytosis 1+; Neutrophils Absolute Manual 688 /uL (3000-5900); Platelet Estimate Decreased on smear; Total Cells Counted 100
[2024-02-11 05:34] LABS: Digoxin 0.9 ng/mL (0.8-2.0)
[2024-02-11 05:41] LABS: Percent Iron Saturation 36 % (20-50); Total Iron Binding Capacity 180 ug/dL (261-462); Transferrin 125 mg/dL (206-381)
[2024-02-11] MEDS: SODIUM CHLORIDE 0.9% 1,000 ML 100 ML IV (05:51)
[2024-02-11] MEDS: LEVOTHYROXINE 25 MCG TABLET PO (05:51)
[2024-02-11 06:20] LABS: Vitamin B12 672 pg/mL (239-931)
[2024-02-11] MEDS: lisinopriL 5 MG TABLET PO (10:00)
[2024-02-11] MEDS: AZITHROMYCIN 250 MG TABLET PO (10:00)
[2024-02-11] MEDS: ENOXAPARIN 40 MG/0.4 ML SYRINGE SUBCUT (10:00)
[2024-02-11] MEDS: hydroCHLOROthiazide 25 MG TABLET 12.5 MG PO (10:00)
[2024-02-11] MEDS: DIGOXIN 0.125 MG TABLET PO (11:11)
--- NOTE | 2024-02-11 12:06 | OT.IP.EVAL ---
Current Diagnoses Pneumonitis due to inhalation of food and vomit (02/10/24) Past Medical History (Last Reviewed 02/10/24 @ 00:58 by Joshua Gtz DO) Actinic keratosis (12/05/04) Aortic sclerosis (07/08/15) CMML (chronic myelomonocytic leukemia) (~2017) Compression fracture of first lumbar vertebra Compression fracture of thoracic vertebra Coronary artery disease involving [place] coronary artery of [place] heart without angina pectoris (07/08/15) Erectile dysfunction due to arterial insufficiency (07/08/15) Essential hypertension (03/06/16) Malignant neoplasm of prostate (07/08/15) Mixed hyperlipidemia (01/08/03) Neutropenia (06/19/16) Obstructive sleep apnea syndrome (07/08/15) Osteoporosis (~2017) Other iron deficiency anemia (07/08/15) Restless legs syndrome (RLS) Surgical History (Last Reviewed 08/08/23 @ 07:47 by Jorge Luis Proctor MD) Hip joint replacement status History of tonsillectomy and adenoidectomy S/P CABG x 4 Status post appendectomy Occupational Therapy Inpatient Evaluation/Re-Eval M1 PT/OT-IP Prior Functional Status Start: 02/11/24 11:06 Freq: NEEDED Status: Active Protocol: Document 02/11/24 12:37 CGR (Rec: 02/11/24 12:47 CGR [id number]) Medical Review Prior Functional Status Medical History Reviewed Yes Communication Unsure baseline diet, daughter states that he has had about 20 lb weight loss since the summer and he has not had much of an appetite Mobility and 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 Pt is able to feed self and do basic ADLs . Social History Household Members family,other Living Arrangements House Number of Floors (Floors) One Floor Number of Stairs To Enter/Railing? No steps to enter home on [address], cargivers work 2 weeks on and 2 weeks off Home Environment Standard Height Toilet,Walk in Shower Home Equipment Front Wheel Walker,Four Wheel Walker,Manual Wheelchair, Raised Toilet Seat w/Armrests, Shower Seat with Backrest,Hand Held Shower,Grab Bars Near Toilet,Grab Bars In Shower Employment Status Retired Additional Social History Comment Adjustable bed M2 OT-IP Current Condition Start: 02/11/24 12:37 Freq: Status: Active Protocol: Document 02/11/24 12:37 CGR (Rec: 02/11/24 12:47 CGR [id number]) Occupational Therapy Current Condition Current Condition Evaluation Date 02/11/24 Treatment Diagnosis R lower lobe PNA Diagnosis Onset Date 02/10/24 M3 OT- IP Subjective and Pain Start: 02/11/24 12:37 Freq: Status: Active Protocol: Document 02/11/24 12:37 CGR (Rec: 02/11/24 12:47 CGR [id number]) OT- Subjective Occupational Therapy Visit Type Type Initial Evaluation Visit Start Time 11:33 Visit Stop Time 12:06 Notes Partial co-treat with P.T. OT Pain Assessment Pain When Pain Assessed At Rest Pain Present Pain Present Pain Reported Location Left posterior head Intensity 7 Scale Used Numeric (0 - 10) Management Techniques Modification of Treatment,Re- positioning M4 OT- IP ADL's Start: 02/11/24 12:37 Freq: Status: Active Protocol: Document 02/11/24 12:37 CGR (Rec: 02/11/24 12:47 CGR [id number]) OT [id number] Comments OT Self-Feeding Comments not meal time OT ADL-Grooming Comments OT Grooming Comments pt declined OT ADL-Oral Care Comments Oral Care Comments pt decliend OT ADL-Dressing General Eval Lower Body Dressing Ability Total Assistance Areas Needing Assistance Socks Comments OT Dressing Comments Pt states that his caretakers assist him with socks at baseline. OT ADL-Toileting General Evaluation Toileting Ability Total Assistance Comments OT Toileting Comments meier OT ADL-Bathing Comments OT Bathing Comments not performed M5 OT- IP IADL's Start: 02/11/24 12:37 Freq: Status: Active Protocol: Document 02/11/24 12:37 CGR (Rec: 02/11/24 12:47 CGR [id number]) OT-Instrumental Activities of Daily Living Deficits IADL Deficits Identified No Deficits Home Safety Awareness Awareness of Need for Assistance at Home Decreased Awareness Ability to Problem Solve Emergency Unable to Problem Solve Situations Medication Management Medication Management Caregiver Administers Money Management Money Management Caregiver Provides Assistance Meal Preparation Meal Preparation Caregiver Provides Assist Diamond Cleaver Diamond Cleaver Caregiver Provides Assist Driving Driving Comments Pt says that he would like to drive but has not been. M6 OT- IP Functional Cognition Start: 02/11/24 12:37 Freq: Status: Active Protocol: Document 02/11/24 12:37 CGR (Rec: 02/11/24 12:47 CGR [id number]) Cognitive Factors Limiting Selfcare Function Cognitive Ability Level of Alertness Alert Patient Orientation Name,Age,Birthday,Month,Year, Place,Situation Attention Span Ability Unable to Focus,Unable to Sustain Attention Ability to Follow Commands Able to Follow One Step Commands with Increased Time, Able to Follow One Step Commands with Repetition OT- Vision and Hearing OT- Hearing Assessment OT- Hearing Assessment Hearing Impaired,Use of Hearing Aids OT- Vision Assessment Visual Acuity Glasses All The Time Visual Attentiveness WFL Occular Pursuits WFL Visual Convergence Impaired M7 OT- IP Mobility and Balance Start: 02/11/24 12:37 Freq: Status: Active Protocol: Document 02/11/24 12:37 CGR (Rec: 02/11/24 12:47 CGR [id number]) OT- Bed Mobility Assessment Supine to Sit Supine to Sit Assist Standby Assistance,Head of Bed Elevated,Bedrails Scooting Scooting to Edge of Bed Standby Assistance,Head of Bed Elevated,Bedrails OT-Transfer Assessment Sit to and From Stand Sit to and from Stand Minimal Assistance,1 Person Assistance,2 Person Assistance Transfers Transfer Ability Minimal Assistance,1 Person Assistance,2 Person Assistance Technique Transfer Destination Bed,Chair Transfer Technique Stand Step Pivot Devices Transfer Assistive Devices Gait Belt,Front Wheeled Walker Comments Mobility Comments 2 person assist in this session for tranfer but pt would likely be safe for 1 person transfer. OT- Balance Assessment Sitting Balance and Reactions Static Sitting Balance Ability Fair Dynamic Sitting Balance Ability Fair Comments Other Balance Tests/Deviations/Treatment Pt leans to the R. Pt's : daughter says this is his baseline. M8 OT- IP Objective Assessments Start: 02/11/24 12:37 Freq: Status: Active Protocol: Document 02/11/24 12:37 CGR (Rec: 02/11/24 12:47 CGR [id number]) OT Gross Range of Motion Upper Extremity Range of Motion Assessment Bilaterally Impaired ROM Impairments impairments to the shlds specifically in external rotation. OT Strength Upper Extremity Strength Assessment Within Functional Limits Comments Strength Comments 4/5 OT- Coordination Assessment Upper Extremity Finger to Nose Test Within Functional Limits Finger Tapping Test Within Functional Limits OT-Muscle Tone Assessment Muscle Tone WNL Yes OT Sensation Assessment Edema Edema Absent M9 OT- IP Assessment and Plan Start: 02/11/24 12:37 Freq: Status: Active Protocol: Document 02/11/24 12:37 CGR (Rec: 02/11/24 12:47 CGR [id number]) OT Summary Assessment and Plan Potential Rehabilitation Potential Good Analytic Complexity at Evaluation Moderate Summary OT Impairments Pain,Range of Motion,Strength, Balance,Functional Cognition, Functional Mobility,Grooming, Dressing,Toileting,Bathing, Toilet Transfers,Shower Transfers,Activity Tolerance Progress Towards Goals Slow Progress due to Activity Tolerance Assessment Summary Pt presents as a moderate complexity evaluation s/p admit for PNA. Pt participates in todays session well and transferred to the chair. Pt will continue to benefit from therapy services. Pt and family state that they are not interested in SNF and will discharge home with 24/7 caregiver assist. Goals Self-Feeding Goal Independent Grooming Goal Independent Dressing Goal Moderate Assistance Toileting Goal Independent Toilet Transfer Goal Independent Days to Meet Goals 10 Frequency of Treatment Other frequency 5x a week Treatment Plan OT Treatment Plan ADL Training,Functional Cognition Training,Functional Mobility,Patient/Family Education,Discharge Planning Other Treatment Recommendations and Next ADLs seated, dressing if pt Treatment Focus wants training (currently has assist) Discharge Recommendations OT Discharge Recommendations Home with 24/7 Assist Available Transportation Needs at Discharge Private Vehicle
--- NOTE | 2024-02-11 12:22 | PT.IIE ---
Current Diagnoses Pneumonitis due to inhalation of food and vomit (02/10/24) Surgical History (Last Reviewed 08/08/23 @ 07:47 by Jorge Luis Proctor MD) Hip joint replacement status History of tonsillectomy and adenoidectomy S/P CABG x 4 Status post appendectomy Medical History (Last Reviewed 02/10/24 @ 00:58 by Joshua Gtz DO) Actinic keratosis (12/05/04) Aortic sclerosis (07/08/15) CMML (chronic myelomonocytic leukemia) (~2017) Compression fracture of first lumbar vertebra Compression fracture of thoracic vertebra Coronary artery disease involving [place] coronary artery of [place] heart without angina pectoris (07/08/15) Erectile dysfunction due to arterial insufficiency (07/08/15) Essential hypertension (03/06/16) Malignant neoplasm of prostate (07/08/15) Mixed hyperlipidemia (01/08/03) Neutropenia (06/19/16) Obstructive sleep apnea syndrome (07/08/15) Osteoporosis (~2017) Other iron deficiency anemia (07/08/15) Restless legs syndrome (RLS) Physical Therapy Inpatient Evaluation/Re-Eval M1 PT/OT-IP Prior Functional Status Start: 02/11/24 11:06 Freq: NEEDED Status: Active Protocol: Document 02/11/24 11:40 MB (Rec: 02/11/24 12:21 MB [id number]) Medical Review Prior Functional Status Medical History Reviewed Yes Communication Unsure baseline diet, daughter states that he has had about 20 lb weight loss since the summer and he has not had much of an appetite Mobility and Gait 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 Social History Household Members family,other Living Arrangements House Number of Floors (Floors) One Floor Number of Stairs To Enter/Railing? No steps to enter home on [address], cargivers work 2 weeks on and 2 weeks off Home Environment Standard Height Toilet,Walk in Shower Home Equipment Front Wheel Walker,Four Wheel Walker,Manual Wheelchair, Raised Toilet Seat w/Armrests, Shower Seat with Backrest,Hand Held Shower,Grab Bars Near Toilet,Grab Bars In Shower Employment Status Retired Additional Social History Comment Adjustable bed M2 PT-IP Current Condition Start: 02/11/24 11:06 Freq: NEEDED Status: Active Protocol: Document 02/11/24 11:40 MB (Rec: 02/11/24 12:21 MB [id number]) Physical Therapy Current Condition Current Condition Evaluation Date 02/11/24 Treatment Diagnosis PNA, recent fall M3 PT-IP Subjective Start: 02/11/24 11:06 Freq: NEEDED Status: Active Protocol: Document 02/11/24 11:40 MB (Rec: 02/11/24 12:21 MB [id number]) Subjective Physical Therapy Visit Type Type Initial Evaluation Visit Start Time 11:40 Visit Stop Time 12:01 Number of ASSISTANT STORE LEADER Visits 0 Physical Therapy Visit Comments Patient Comments Pt states he has left head ( headache) pain and daughter states this is an unusual complaint for him Therapy Pain Assessment Pain When Pain Assessed At Rest Pain Present Pain Present Pain Reported Location Left posterior head Intensity 7 Scale Used Numeric (0 - 10) M4 PT-IP Mobility and Gait Start: 02/11/24 11:06 Freq: NEEDED Status: Active Protocol: Document 02/11/24 11:40 MB (Rec: 02/11/24 12:21 MB [id number]) PT-Bed Mobility Assessment Rolling Level of Assist Contact Guard Assistance,1 Person Assistance Supine to Sit Supine to Sit Minimal Assistance,Head of Bed Elevated,Bedrails Scooting Scooting to Edge of Bed Minimal Assistance PT-Transfer Assessment Sit to and From Stand Sit to and from Stand Minimal Assistance,1 Person Assistance,Use of Upper Extremities Equipment Transfer Assistive Device Gait Belt,Front Wheeled Walker Orthotic/Prosthetic Devices or Brace: No Transfers Transfer Destination Chair Transfer Technique Stepping Transfer Ability Level of Assist Minimal Assistance,1 Person Assistance,Use of Upper Extremities Comments Mobility Comments Occ assistance to move left hand to rail at bottom of bed to help keep upright sitting balance d/t falling to the right and pt also uses hand rail at bottom of bed to help scoot out to EOB. Posterior and right lean with all sitting balance (static and dynamic) and UE support to maintain upright. Initial posterior lean with standing. Pt moves right arm when PT tries to check BP and so unsure of accuracy. O2 sats drop to 88% on RA with mobility and pt with short and shallow breathing, PADILLA, and his O2 sats increase when sitting upright in chair and are 94%. HR remains in the high 50s BPM at rest and increase to the 70s with activity. Once up in chair, BP checked and is high at 179/83 . Gait Assessment Gait Gait Assistance Required: Minimum Assistance Distance (Feet) 2 Able to Maintain Weight Bearing Status Yes During Gait Assistive Devices Assistive Device Gait Belt,Front Wheeled Walker Orthotic/Prosthetic Devices or Brace: No Gait Deviations General Gait Pattern Decreased Stride Length, Decreased Feet Clearance, Flexed Trunk,Narrow Based Gait ,Step-to Gait Factors Limiting Gait Function Factors Limiting Gait Function Decreased Activity Tolerance, Incoordination,Limited Range of Motion,Poor Balance,Poor Safety Awareness Comments Gait Comments Posterior lean with gait, B PF tension limits foot flat/heel strike PT-Balance Assessment Sitting Balance and Reactions Static Sitting Balance Ability Fair Dynamic Sitting Balance Ability Poor Standing Balance and Reactions Static Standing Balance Ability Fair Dynamic Standing Balance Ability Poor Device Used RW, assistance at gait belt and second person nearby M5 PT-IP Objective Assessments Start: 02/11/24 11:06 Freq: NEEDED Status: Active Protocol: Document 02/11/24 11:40 MB (Rec: 02/11/24 12:21 MB [id number]) Orientation Orientation/Cognition Level of Alertness Confusional State Orientation Name,Month,Year,Place Safety Awareness Decreased Safety Awareness Memory Description Short Term Impaired,Half-Way Impaired Gross Range of Motion Upper Extremity ROM Impairments Defer to OT Lower Extremity ROM Assessment Bilaterally Impaired Impairments B PFs tight and decreased active DF, age related knee changes with B hamstring tension and decreased knee extension in sitting Strength Lower Extremity Strength Assessment Within Functional Limits Comments Strength Comments In available range, B ankle DF , B knee extension and B hip flexion are at least 4/5. Pt with wound lateral right ankle and it is dressed Coordination Assessment Gross Coordination Gross Coordination Impaired Assessment Coordination Comments Slow movement Sensation Assessment Comments Sensation Comments NT Muscle Tone Comments Muscle Tone Comments Increased B PF tone and hamstring tension M6 PT-IP Treatment Start: 02/11/24 11:06 Freq: NEEDED Status: Active Protocol: Document 02/11/24 11:40 MB (Rec: 02/11/24 12:21 MB [id number]) Physical Therapy Treatment Education Education Provided Safety M7 PT-IP Assessment and Plan Start: 02/11/24 11:06 Freq: NEEDED Status: Active Protocol: Document 02/11/24 11:40 MB (Rec: 02/11/24 12:21 MB [id number]) PT Summary Assessment and Plan Potential Rehabilitation Potential Fair Status of Condition at Evaluation Evolving Summary Impairments Pain,ROM,Balance,Coordination, Tone,Cognition,Bed Mobility, Transfers,Gait,Activity Tolerance Progress Towards Goals Slow Progress due to Activity Tolerance Assessment Summary Pt is an 88 y/o male presenting to hospital with several medical issues including PNA. 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 Pt c/o left occipital pain that initially increases with mobility and is better with sitting and short and gentle cervical STM and this could be cervicogenic pain in nature. Communicated with nsg and OT to support pt's thoracic and cervical spine in chair once completed assessment. Functional strength in legs is good in available range. He does have B PF tension which affects gait. He has sitting imbalance with right posterior lean. O2 sats on RA decrease with mobility and recover with rest and he is hypertensive today. Daughter nearby for assessment and they would like to d/c home with his 24 hour caregivers and HHPT and PT is amendable to this goal. Goals Bed Mobility Goal Independent Transfer Goal Standby Assistance,Front Wheeled Walker Gait Goal Standby Assistance,Front Wheel Walker Gait Distance 50 Other Goals Pt will maintain static and dynamic sitting balance with I to allow safe functional activities. Days to Meet Goals 5 Frequency of Treatment Frequency Of Treatment Once a Day Treatment Plan Physical Therapy Treatment Plan Bed Mobility Training,Transfer Training,Gait Training, Therapeutic Exercise,Balance Retraining,Discharge Planning, Hot or Cold Pack,Neuromuscular Re-ed,Coordination Retraining ,Manual Therapy Recommendations To Nursing Amount of Assist Needed 2 Person Assist Discharge Recommendations PT Discharge Recommendations Home with 18/09 Assist Available,Home Health Transportation Needs at Discharge Private Vehicle
[2024-02-11] MEDS: ACETAMINOPHEN 325 MG TABLET 650 MG PO ×2 (12:49→19:21)
[2024-02-11] MEDS: methocarbamoL 500 MG TABLET 750 MG PO (12:50)
--- NOTE | 2024-02-11 13:28 | CM.DANOTE ---
Patient is an 88 yo male who was admitted INPT Status on 02/10/24 for Pneumonia/GLF. Pt has MCR and BCBS OUT STATE REG for insurance and his PCP is Gloria Olson. EMR was reviewed. Per MD, pt with a hx of osteomyelitis and recently on a cruise to [place] and upon return had become weaker with multiple GLFs and broken finger from fall and admitted for treatment of pneumonia and oxygen. Per PT, pt requiring 1-2PA but family and pt preference home with caregivers and therefore recommending home with assist and HH. Met w/patient and his daughter Joe. Patient is [facility] although [facility], and they confirm patient and spouse live on [address]. They were independently living until patient fractured his femur in May 2023. Patient then spent 4 weeks at [facility] and then [facility] had been providing home health services afterwards. Pt was then admitted in July 2023 for osteomyelitis and was discharged to [facility]. Dtr Joe is involved and supportive and lives in [place]. Since pt's discharge from [facility] and due to patient's spouse haing dementia Private Pay CGs were set up at home on [address] with 2-3 local CGs with a plan of each staying 24/7 in the home for 2 weeks and then the other CG takes over and does the same rotation. Pt and Dtr confirm they feel confident with pt discharge home when stable with his CGs and Dtr will transport and they already have a Priority Board Pass for a year set up. Pt and Dtr requesting [facility] referral as they feel this would be needed at d/c. LUZ Jimenez kindly made [facility] referral and F2F completed but not scanned yet. Plan: SW to follow for plan of patient discharge home via Dtr POV when medically stable with 24/[address] and new [facility]. VAN Campbell Discharge Planning/Care Management CM Discharge Assessment Start: 02/11/24 13:21 Freq: Status: Active Protocol: Document 02/11/24 13:22 BF (Rec: 02/11/24 13:26 BF [id number]) Discharge Planning Assessment Assigned Chair Lift Operator VAN Aleman DPOA/Assigned Designee Name Dtr Joe Contact Information [phone] Advance Directives? Yes: POLST Advance Directives on File Yes History Provided By Patient,Family Member,Medical Record Has Patient been admitted in last 30 No days? Comment last admit in July 2023 for osteo and d/c to [facility] Prior Living Arrangements House Comment [place] Household Members spouse Type of transporation used prior to Relies on Others admit Independent with ADL's Yes: somewhat, has PP CGs at home Is patient alert and oriented? Yes Needs Assistance With Meal Prep,Managing Medications ,Home Chores / Shopping Caregiver for Another Yes: spouse with some dementia Patient/Family Preference Home with Home Health Barriers to Discharge No Comment TBD Discharge Plan Home with Home Health Community [facility] Physical Therapy,Occupational Therapy,Home Health Nurse Transportation Arrangement Dtr with the help of CG assist , they have Priority Board pass already Referrals Initiated Home Health Additional Comment [facility] If patient plan is home with home health Yes : Has signed face to face form been completed? Medicare Choice List Provided Yes Medicare choice list reviewed on patient,family electronic tablet with SNF/HH Preference [facility] as pt lives on [address] Whiteboard Updated in Patient Room with Yes name and ext. # of Chair Lift Operator Review Status In Process Please Provide Date Initial DC 02/11/24 Assessment Was Performed Next Review Type Continued Stay Review
--- NOTE | 2024-02-11 16:30 | P.PN_ITS ---
Subjective Subjective Interval history: 88 M admitted with weakness, shortness of breath and presumed PNA. CXR showed small b/l pleural effusions. Patient is off supplemental oxygen today, occasionally 1L. Remains weak, ordered TTE to check for possible cardiace etiology. Exam Vital Signs (past 8 hours): - 02/11/24 10:00 02/11/24 11:11 02/11/24 14:00 Temperature 97.2 F L Pulse Rate 61 Respiratory Rate 20 Blood Pressure 169/76 H 169/76 H 151/79 H Pulse Oximetry 94 Fraction of Inspired Oxygen 24 SaO2/FiO2 Ratio 404 Oxygen Delivery Method Nasal Cannula Oxygen Flow Rate 1 Narrative Exam Narrative: Gen: alert, oriented to name and hospital, improved from somnolent CV: RRR no m/r/g Pulm: CTA b/l ABD: S NT ND Ext: no edema Objective Labs 02/11/24 04:30 02/10/24 16:07 Labs: Laboratory Results - last 24 hr 02/10/24 02/10/24 02/11/24 16:07 16:50 04:30 WBC 4.4 L 4.3 L RBC 2.56 L 2.11 L Hgb 9.7 L 8.1 L Hct 29.1 L 23.7 L MCV 113.6 H 112.0 H MCH 38.0 H 38.3 H MCHC 33.4 34.2 RDW 18.0 H 17.5 H Plt Count 101 L 84 L Neut % (Auto) Not Reportable Not Reportable Lymph % (Auto) Not Reportable Not Reportable [place] % (Auto) Not Reportable Not Reportable Eos % (Auto) Not Reportable Not Reportable Baso % (Auto) Not Reportable Not Reportable Lymph # (Auto) Not Reportable Not Reportable [place] # (Auto) Not Reportable Not Reportable Baso # (Auto) Not Reportable Not Reportable Total Counted 100 100 Seg Neutrophils % 21.0 L 15.0 L Band Neutrophils % 1.0 L Lymphocytes % (Manual) 21.0 L 24.0 L Monocytes % (Manual) 52.0 H 59.0 H Eosinophils % (Manual) 2.0 Basophils % (Manual) 4.0 H 1.0 Neutrophils # (Manual) 924 L 688 L Hypogranular Neuts Cancelled Platelet Estimate Decreased on smear RBC Morphology See below See below Anisocytosis 1+ H Microcytosis 1+ H Macrocytosis 2+ H 1+ H Acanthocytes (Spur) 1+ 1+ Sodium 140 Potassium 4.2 Chloride 108 H Carbon Dioxide 23 BUN 25 H Creatinine 0.84 Estimated GFR > 60 BUN/Creatinine Ratio 29.8 H Glucose 102 Lactate 1.2 Calcium 8.9 Iron 65 TIBC 180 L % Saturation 36 Transferrin 125 L Total Bilirubin 1.3 AST 43 ALT 29 Alkaline Phosphatase 111 Total Creatine Kinase 75 Troponin I 0.022 Total Protein 8.1 Albumin 4.0 Globulin 4.1 Albumin/Globulin Ratio 1.0 Vitamin B12 672 Digoxin 0.8 0.9 Chlamy pneumoniae PCR Not detected Adenovirus (PCR) Not detected B. pertussis DNA (PCR) Not detected B.parapertussis DNA PCR Not detected Coronavirus OC43 (PCR) Not detected Coronavirus HKU1 (PCR) Not detected Coronavirus 229E (PCR) Not detected SARS-CoV-2 (PCR) Not detected Coronavirus NL63 (PCR) Not detected Human Metapneumovir PCR Not detected Influenza Type A (PCR) Not detected Influenza Type B (PCR) Not detected M. pneumoniae (PCR) Not detected Parainfluenza 1 (PCR) Not detected Parainfluenza 2 (PCR) Not detected Parainfluenza 3 (PCR) Not detected Parainfluenza 4 (PCR) Not detected RSV (PCR) Not detected Entero/Rhino (PCR) Not detected [facility] Medical History Actinic keratosis (12/05/04) Compression fracture of first lumbar vertebra Restless legs syndrome (RLS) Osteoporosis (~2017) Compression fracture of thoracic vertebra CMML (chronic myelomonocytic leukemia) (~2018) Neutropenia (06/19/16) Essential hypertension (03/06/16) Aortic sclerosis (07/08/15) Malignant neoplasm of prostate (07/08/15) Other iron deficiency anemia (07/08/15) Obstructive sleep apnea syndrome (07/08/15) Mixed hyperlipidemia (01/08/03) Erectile dysfunction due to arterial insufficiency (07/08/15) Coronary artery disease involving [place] coronary artery of [place] heart without angina pectoris (07/08/15) Surgical History S/P CABG x 4 Hip joint replacement status History of tonsillectomy and adenoidectomy Status post appendectomy Family History Father Mental health problem Social History marital status: details: trang Tam, lives on [address] in the summer number of children: 3 household members: spouse lives independently: Yes caregiver/support person: No housing: house occupational status: previously employed Smoking Status: Never smoker alcohol intake: never Assessment & Plan Assessment & Plan narrative: This is an 88-year-old male with right lower lobe pneumonia with symptoms limited to mild hypoxia and extreme fatigue. He became tired and increasingly unable to interact over the last week after returning from a cruise to [place] and flight back from [place]. Sepsis secondary to Right lower lobe pneumonia with acute metabolic encephalopathy, acute respiratory failure with hypoxia and thrombocytopenia -treat with azithromycin and ceftriaxone, he is improving today -oxygen as needed to keep sats at 90%. -DNR -check TTE to evaluate for possible cardiac component. -PT/OT evaluations -SOFA score is >2 Chronic Atrial fibrillation -this appears to be stable -he has not on anticoagulation due to frequent falls -he remains on digoxin 0.125 mg daily and level be drawn and followed while on Zithromax. -Metoprolol was held today for bradycardia, will continue though with improvement today. Macrocytic anemia -Probably CMML related - Chronic Myelomonocytic Leukemia -hemoglobin 9.7 with MCV 113. -Check B12 672 and Iron Level 65 (low normal) with low TIBC, low transferrin. -slightly lower Hg today at 8.1, will repeat tomorrow. Suspect fluids CAD/HTN -S/P CABG -Metoprolol/Lisinopril/HCTZ Hypothyroidism -Levothyroxine -TSH 3.15 Lovenox for DVT Prevention His backup decision makers are his daughter and . Code: DNR Dispo: inpatient, PT/OT today, likely home in 2-3 more days. Time-Based Coding :: [TOTAL MINUTES] spent with patient and on the chart (including review of chart, obtaining history, exam, reviewing outside data, placing orders, documenting exam and treatment plan, and counseling patient) on [DATE].
[2024-02-11] MEDS: cefTRIAXone 1,000 MG in SODIUM CHLORIDE 0.9% 100 ML 200 MG IV (17:42)
[2024-02-11] MEDS: MIRTAZAPINE 15 MG TABLET PO (17:42)
[2024-02-11] MEDS: GABAPENTIN 100 MG CAPSULE PO (21:01)
[2024-02-12] VITALS (7 sets, daily range): BP systolic 139–164; BP diastolic 65–75; PULSE 62–75; RESP 32–38; TEMP 36.2–36.6; O2SAT 92–97
[2024-02-12 05:15] LABS: Add Manual Diff / Slide Review NO; Basophils Absolute Auto 100 /uL (0-100); Eosinophils Absolute Auto 100 /uL (0-450); Eosinophils Percent Auto 1.9 % (2-4); Hematocrit 25.5 % (41-53); Hemoglobin 8.6 g/dL (13.5-17.5); Lymphocytes Absolute Auto 900 /uL (1100-4500); Lymphocytes Percent Auto 15.2 % (25-40); Mean Corpuscular HGB Conc 33.6 % (30-36); Mean Corpuscular Hemoglobin 38.2 PG (26-34); Mean Corpuscular Volume 113.6 fL (80-100); Monocytes Absolute Auto 3400 /uL (0-900); Monocytes Percent Auto 61.7 % (3-14); Neutrophils Absolute Auto 1100 /uL (1500-7000); Neutrophils Percent Auto 20.2 % (50-75); Platelet Count 85 X10^3/uL (150-400); Red Blood Cell Count 2.24 X10^6/uL (4.5-5.9); Red Cell Distribution Width 17.7 % (11.6-14.8); White Blood Cell Count 5.6 X10^3/uL (4.5-11.0)
[2024-02-12] MEDS: LEVOTHYROXINE 25 MCG TABLET PO (05:17)
[2024-02-12 05:52] LABS: Acanthocytes 1+; Anisocytosis 1+; Macrocytosis 1+; Microcytosis 1+; Platelet Estimate Decreased on smear
[2024-02-12 09:35] LABS: Allen Test for ABG Passed? Negative; Base Excess ABG -0.8 mmol/L (-2-3); Blood Gas Collection Site Left Radial; Delivery System Cannula; HCO3 ABG 24 mmol/L (23-27); Oxygen Saturation ABG 97 % (95-100); PCO2 ABG 40.8 mmHg (35-45); PO2 ABG 89 mmHg (80-100); TCO2 ABG 24 mmol/L (23-27); pH ABG 7.38 (7.35-7.45)
--- NOTE | 2024-02-12 10:32 | CM.DPC ---
DCP Cont. Reviewed EMR and team rounds for status updates. Per Hospitalist, pt is more lethargic this am, is difficult to awaken, and is pending an ECHO today. Likely will d/c tomorrow, pt's dtr will transport, and they already have a priority boarding pass.
--- NOTE | 2024-02-12 10:51 | DI.ECHO.S_ITS ---
[facility]---------+ [facility] : : [address] : [place] : : [id number] : : Phone: [phone] Echocardiogram Report + + :Name: ALEKSANDAR ANTONIO Study Date: 02/12/2024 Height: 72 in : [facility] ReadingLocation: Weight: 154 lb: : Gender: Male BSA: 1.9 m2 : :: 1935 Age: 88 yrs : :Reason For Study: SHORTNESS OF BREATH : :Ordering Physician: JOSIE, : :ANNA MOSHER Performed By: Ankur Worley : :Referring: ANNA GALINDO DO : + + Interpretation Summary The ejection fraction is estimated to be 60-65%. Diastolic function could not be accurately assessed due to atrial fibrillation. The right ventricle is mildly dilated. The right ventricular systolic function is normal. There is severe biatrial enlargement. There is mild mitral regurgitation. There is mild aortic regurgitation. There is moderate tricuspid regurgitation. The right ventricular systolic pressure is estimated to be at least 59 mmHg based on an estimated right atrial pressure of 15 mm Hg. The ascending aorta is mildly enlarged, 4.1 cm. If clinically indicated, consider imaging of the ascending aorta as it may be more dilated than what is measured. Procedure: A two-dimensional transthoracic echocardiogram with color flow and Doppler was performed. There is no prior echocardiogram noted for this patient. The study quality was technically difficult. The patient was in atrial fibrillation with heart rates between 54-87 bpm during the exam. Left Ventricle: The left ventricle is normal in size. There is normal left ventricular wall thickness. There is no ventricular septal defect visualized. The ejection fraction is estimated to be 60-65%. There are no focal wall motion abnormalities. Diastolic function could not be accurately assessed due to atrial fibrillation. Right Ventricle: The right ventricle is mildly dilated. The right ventricular systolic function is normal. Atria: There is severe biatrial enlargement. There is no Doppler evidence for an interatrial shunt. Mitral Valve: There is mild mitral annular calcification. The mitral valve leaflets appear mildly thickened, but open well. There is mild mitral regurgitation. Aortic Valve: The aortic valve is trileaflet. The aortic valve is moderately calcified. There is no aortic stenosis. There is mild aortic regurgitation. Tricuspid Valve: The tricuspid valve leaflets are thin and pliable. There is moderate tricuspid regurgitation. The right ventricular systolic pressure is estimated to be at least 59 mmHg based on an estimated right atrial pressure of 15 mm Hg. Pulmonic Valve: The pulmonic valve is not well visualized. There is no pulmonic valvular regurgitation. Great Vessels: The aortic root is borderline dilated. The ascending aorta is mildly enlarged. The pulmonary artery is not well visualized, but is probably normal size. The IVC is dilated (diameter is greater than 2.1 cm) and it collapses less than 50% with a sniff. This suggests a high right atrial pressure of 15 mm Hg. Pericardium/ Pleura There is no pericardial effusion. There is a large leftsided pleural effusion. MMode/2D Measurements & Calculations LVIDd: 4.6 cm LVOT diam: 2.4 cm LVIDs: 3.0 cm Ao root diam: 3.7 cm FS: 33.6 % asc Aorta Diam: 4.1 cm EPSS: 0.73 cm IVSd: 1.0 cm LVPWd: 0.99 cm LV campbell. diameter/BSA (cm/m^2): 2.4 LV sys. diameter/BSA (cm/m^2): 1.6 LA A2 area: 31.7 cm2 RA long axis: 6.8 cm LA A4 area: 35.8 cm2 RA area: 28.4 cm2 LA length (vol): 7.0 cm RA vol: 101.3 ml LA vol: 138.0 ml RA : 53.2 ml/m2 LA vol index: 72.4 ml/m2 IVC diam: 2.8 cm RVD1 (basal): 4.5 cm RVD2 (mid): 4.0 cm TAPSE: 2.1 cm Doppler Measurements & Calculations Ao V2 max: 183.1 cm/sec LVOT Max Ramiro: 101.6 cm/sec Ao V2 mean: 120.6 cm/sec LV V1 max P.1 mmHg Ao max P.4 mmHg LV V1 VTI: 17.8 cm Ao mean P.6 mmHg YOSELYN(I,D): 2.6 cm2 Ao V2 VTI: 30.6 cm YOSELYN(V,D): 2.5 cm2 sev ratio: 0.58 YOSELYN indexed to BSA (cm^2/m^2): 1.4 MV E max ramiro: 118.0 cm/sec TR max ramiro: 313.2 cm/sec MV A max ramiro: 27.1 cm/sec TR max P.4 mmHg MV E/A: 4.4 PA V2 max: 124.9 cm/sec Med Peak E' Ramiro: 4.9 cm/sec PA V2 mean: 81.2 cm/sec E/E' med: 23.9 PA mean P.2 mmHg Lat Peak E' Ramiro: 8.6 cm/sec PA pr(Accel): 46.5 mmHg E/E' lat: 13.7 E/e' average: 18.8 MV dec time: 0.16 sec SV(LVOT): 80.2 ml Reading Physician:12:58 PM
--- NOTE | 2024-02-12 11:33 | OT.IPNOTE ---
Still not able to awaken pt. Pt able to briefly open his eyes and point before falling back asleep.
--- NOTE | 2024-02-12 11:50 | PT.IPTN ---
Current Diagnoses Pneumonitis due to inhalation of food and vomit (02/10/24) Physical Therapy Treatment Note M2 PT-IP Current Condition Start: 02/11/24 11:06 Freq: NEEDED Status: Active Protocol: Document 02/11/24 11:40 MB (Rec: 02/11/24 12:21 MB [id number]) Physical Therapy Current Condition Current Condition Evaluation Date 02/11/24 Treatment Diagnosis PNA, recent fall M3 PT-IP Subjective Start: 02/11/24 11:06 Freq: NEEDED Status: Active Protocol: Document 02/12/24 11:50 AB (Rec: 02/12/24 13:17 AB [id number]) Subjective Physical Therapy Visit Type Type Treatment Note Visit Start Time 11:50 Visit Stop Time 12:25 Number of [employer] Visits 0 M4 PT-IP Mobility and Gait Start: 02/11/24 11:06 Freq: NEEDED Status: Active Protocol: Document 02/12/24 11:50 AB (Rec: 02/12/24 13:17 AB [id number]) PT-Bed Mobility Assessment Supine to Sit Supine to Sit Maximum Assistance,1 Person Assistance,Head of Bed Elevated,Bedrails PT-Transfer Assessment Sit to and From Stand Sit to and from Stand Maximum Assistance,2 Person Assistance,Use of Upper Extremities Equipment Transfer Assistive Device Gait Belt,Front Wheeled Walker Orthotic/Prosthetic Devices or Brace: No Transfers Transfer Destination Chair Transfer Technique Mechanical Lift Transfer Ability Level of Assist Total Assistance,2 Person Assistance,Use of Upper Extremities Comments Mobility Comments pt supine in bed. family in room. pt is lethargic. family stated that pt has been asleep for the whole morning. checked with nurse and stated that pt had a muscle relaxant yesterday and daughter informed that pt usually becomes very lethargic with use of muscle relaxant. family wanting pt to get up for lunch since pt has not eaten breakfast due to being asleep. pt required constant cues to stay awake. able to respond to questions but inconsistent. completed supine to sit max A and max cues. HOB elevated. increase posterior trunk lean in sitting. NAC in to assist . pt completed sit to stand x 3 attempts with pt requiring max A x 2 to total A using FWW for support. pt presents with increase retrolean and posterior trunk pushing/ resistance and slides BLE forward needing PT and NAC to block B feet. pt unable to stand upright on first 2 attempts but able to stand more on 3rd attempt but continues to push posteriorly. pt sat back on EOB. assisted pt to chair using mechanical lift total Ax 2. positioned pt on the chair. call light within reach. table set up for lunch. left pt with family in room. M5 PT-IP Objective Assessments Start: 02/11/24 11:06 Freq: NEEDED Status: Active Protocol: Document 02/11/24 11:40 MB (Rec: 02/11/24 12:21 MB [id number]) Orientation Orientation/Cognition Level of Alertness Confusional State Orientation Name,Month,Year,Place Safety Awareness Decreased Safety Awareness Memory Description Short Term Impaired,Experience Planning Strategist Impaired Gross Range of Motion Upper Extremity ROM Impairments Defer to OT Lower Extremity ROM Assessment Bilaterally Impaired Impairments B PFs tight and decreased active DF, age related knee changes with B hamstring tension and decreased knee extension in sitting Strength Lower Extremity Strength Assessment Within Functional Limits Comments Strength Comments In available range, B ankle DF , B knee extension and B hip flexion are at least 4/5. Pt with wound lateral right ankle and it is dressed Coordination Assessment Gross Coordination Gross Coordination Impaired Assessment Coordination Comments Slow movement Sensation Assessment Comments Sensation Comments NT Muscle Tone Comments Muscle Tone Comments Increased B PF tone and hamstring tension M6 PT-IP Treatment Start: 02/11/24 11:06 Freq: NEEDED Status: Active Protocol: Document 02/12/24 11:50 AB (Rec: 02/12/24 13:17 AB [id number]) Physical Therapy Treatment Education Education Provided Safety M7 PT-IP Assessment and Plan Start: 02/11/24 11:06 Freq: NEEDED Status: Active Protocol: Document 02/12/24 11:50 AB (Rec: 02/12/24 13:17 AB [id number]) PT Summary Assessment and Plan Potential Rehabilitation Potential Fair Summary Impairments Pain,ROM,Strength,Balance, Coordination,Sensation,Tone, Cognition,Bed Mobility, Transfers,Gait,Activity Tolerance Progress Towards Goals Slow Progress due to Medical Issues,Slow Progress due to Activity Tolerance,Slow Progress - Other Assessment Summary pt requiring max A x 2 to total A x 2 with mobility today. pt is lethargic and requiring max cues. pt will require 24/7 assist and may require SNF rehab at this time . will continue to assess progress for safe d/c plan. Goals Bed Mobility Goal Independent Transfer Goal Standby Assistance,Front Wheeled Walker Gait Goal Standby Assistance,Front Wheel Walker Gait Distance 50 Other Goals Pt will maintain static and dynamic sitting balance with I to allow safe functional activities. Days to Meet Goals 10 Frequency of Treatment Frequency Of Treatment Once a Day Treatment Plan Physical Therapy Treatment Plan Bed Mobility Training,Transfer Training,Gait Training, Therapeutic Exercise,Balance Retraining,Discharge Planning, Hot or Cold Pack,Neuromuscular Re-ed,Coordination Retraining ,Manual Therapy Recommendations To Nursing Amount of Assist Needed Mechanical Lift Discharge Recommendations PT Discharge Recommendations Home with 18/09 Assist Available,SNF Rehab,Home vs SNF Transportation Needs at Discharge Private Vehicle,Wheelchair/ Cabulance
--- NOTE | 2024-02-12 14:33 | PM.PN.1 ---
Subjective Subjective Interval history: 88 M admitted with weakness, shortness of breath and presumed PNA. CXR showed small b/l pleural effusions. Patient is off supplemental oxygen today. Remains weak, TTE pending. He got some robaxin yetserday for neck pain, today he was quite sleepy but more alert later in the day. Exam Vital Signs (past 8 hours): - 02/12/24 07:00 02/12/24 07:00 02/12/24 08:00 Temperature 98 F Pulse Rate 68 Respiratory Rate 38 H Blood Pressure 164/65 H Pulse Oximetry 96 97 Oxygen Delivery Method Nasal Cannula Nasal Cannula Oxygen Flow Rate 2 2 Fraction of Inspired Oxygen 02/12/24 09:53 Temperature Pulse Rate Respiratory Rate Blood Pressure Pulse Oximetry 97 Oxygen Delivery Method Nasal Cannula Oxygen Flow Rate 2 Fraction of Inspired Oxygen 28 Fraction of Inspired Oxygen 28 SaO2/FiO2 Ratio 346 Oxygen Delivery Method Nasal Cannula Oxygen Flow Rate 2 Narrative Exam Narrative: Gen: alert, oriented to name and hospital, improved from somnolent CV: RRR no m/r/g Pulm: CTA b/l ABD: S NT ND Ext: no edema, b/l upper extremity weakness in the shoulders, +4/5 Objective Labs 02/12/24 04:55 02/10/24 16:07 Labs: Laboratory Results - last 24 hr 02/12/24 02/12/24 04:55 09:30 WBC 5.6 RBC 2.24 L Hgb 8.6 L Hct 25.5 L MCV 113.6 H MCH 38.2 H MCHC 33.6 RDW 17.7 H Plt Count 85 L Neut % (Auto) 20.2 L Lymph % (Auto) 15.2 L [place] % (Auto) 61.7 H Eos % (Auto) 1.9 L Baso % (Auto) 1.0 Neut # (Auto) 1100 L Lymph # (Auto) 900 L [place] # (Auto) 3400 H Eos # (Auto) 100 Baso # (Auto) 100 Platelet Estimate Decreased on smear RBC Morphology See below Anisocytosis 1+ H Microcytosis 1+ H Macrocytosis 1+ H Acanthocytes (Spur) 1+ ABG Sample Site Left radial ABG pH 7.38 ABG pCO2 40.8 ABG pO2 89 ABG HCO3 24 ABG Total CO2 24 ABG O2 Saturation 97 ABG Base Excess -0.8 Kushal Test Negative O2 Delivery Device Cannula PFSH Medical History Actinic keratosis (12/05/04) Compression fracture of first lumbar vertebra Restless legs syndrome (RLS) Osteoporosis (~2017) Compression fracture of thoracic vertebra CMML (chronic myelomonocytic leukemia) (~2017) Neutropenia (06/19/16) Essential hypertension (03/06/16) Aortic sclerosis (07/08/15) Malignant neoplasm of prostate (07/08/15) Other iron deficiency anemia (07/08/15) Obstructive sleep apnea syndrome (07/08/15) Mixed hyperlipidemia (01/08/03) Erectile dysfunction due to arterial insufficiency (07/08/15) Coronary artery disease involving [place] coronary artery of [place] heart without angina pectoris (07/08/15) Surgical History S/P CABG x 4 Hip joint replacement status History of tonsillectomy and adenoidectomy Status post appendectomy Family History Father Mental health problem Social History marital status: details: trang Tam, lives on [address] in the summer number of children: 3 household members: spouse lives independently: Yes caregiver/support person: No housing: house occupational status: previously employed Smoking Status: Never smoker alcohol intake: never Assessment & Plan Assessment & Plan narrative: This is an 88-year-old male with right lower lobe pneumonia with symptoms limited to mild hypoxia and extreme fatigue. He became tired and increasingly unable to interact over the last week after returning from a cruise to [place] and flight back from [place]. Sepsis secondary to Right lower lobe pneumonia with acute metabolic encephalopathy, acute respiratory failure with hypoxia and thrombocytopenia -treat with azithromycin and ceftriaxone, slight increase in somnolence today but after muscle relaxant, will hold muscle relaxant -oxygen as needed to keep sats at 90%. -DNR -check TTE to evaluate for possible cardiac component, done but pending read. -PT/OT evaluations -SOFA score is >2 Chronic Atrial fibrillation -this appears to be stable -he has not on anticoagulation due to frequent falls -he remains on digoxin 0.125 mg daily and level be drawn and followed while on Zithromax. -Metoprolol was held yesterday for bradycardia, will continue though with improvement today. Macrocytic anemia -Probably CMML related - Chronic Myelomonocytic Leukemia -hemoglobin 9.7 with MCV 113. -Check B12 672 and Iron Level 65 (low normal) with low TIBC, low transferrin. -slightly lower Hg today at 8.1, will repeat tomorrow. Suspect fluids CAD/HTN -S/P CABG -Metoprolol/Lisinopril/HCTZ Hypothyroidism -Levothyroxine -TSH 3.15 Lovenox for DVT Prevention His backup decision makers are his daughter and . Code: DNR Dispo: inpatient, continue PT/OT, recommending SNF on discharge, likely ready in a couple of days. Time-Based Coding :: [TOTAL MINUTES] spent with patient and on the chart (including review of chart, obtaining history, exam, reviewing outside data, placing orders, documenting exam and treatment plan, and counseling patient) on [DATE].
[2024-02-12 15:55] LABS: Appearance Urine UA CLEAR; Bilirubin Urine UA NEGATIVE (NEGATIVE); Color Urine UA YELLOW; Glucose Urine UA NEGATIVE (Negative); Ketones Urine UA NEGATIVE (NEGATIVE); Leukocyte Esterase Urine UA NEGATIVE (NEGATIVE); Nitrite Urine UA NEGATIVE (Negative); Occult Blood Urine UA 1+ (Negative); Protein Urine UA NEGATIVE (Negative); Specific Gravity Urine UA 1.015 (1.000-1.035); pH Urine UA 5.5 (4.5-8.0)
[2024-02-12 16:10] LABS: Bacteria Urine None Seen; Culture Indicated Urine Cult Not Indicated; RBC Urine 0-1/HPF (0-5/HPF); Squamous Epithelial Cell Urine 0-1 /HPF (0-5/HPF); Urine Volume 10mL (spun); WBC Urine None Seen (0-5/HPF)
[2024-02-12] MEDS: MIRTAZAPINE 15 MG TABLET PO (17:21)
[2024-02-12] MEDS: ACETAMINOPHEN 325 MG TABLET 650 MG PO (17:21)
[2024-02-12] MEDS: cefTRIAXone 1,000 MG in SODIUM CHLORIDE 0.9% 100 ML 200 MG IV (18:21)
[2024-02-12] MEDS: GABAPENTIN 100 MG CAPSULE PO (20:59)
[2024-02-13 02:00] VITALS: BP 155/71; PULSE 73; RESP 20; TEMP 36.7; O2SAT 92
[2024-02-13] MEDS: LEVOTHYROXINE 25 MCG TABLET PO (06:52)
[2024-02-13 07:00] VITALS: O2SAT 98
--- NOTE | 2024-02-13 08:15 | PM.PN.1 ---
Subjective Subjective Interval history: Summary: 88-year-old male with admit metabolic encephalopathy, and question of pneumonia and heart failure. Echo is pending, his hemoglobin was 8.1. Subjective: He was feeling a little bit better today. He was still weak and requires a Lázaro lift for transfers. He typically lives at home independently with his , on [address]. No cough, fevers or chills. Does have new left MTP pain consistent with his previous history of gout. Exam Vital Signs (past 8 hours): - 02/13/24 02:00 Temperature 98.1 F Pulse Rate 73 Respiratory Rate 20 Blood Pressure 155/71 H Pulse Oximetry 92 Oxygen Flow Rate 0 Fraction of Inspired Oxygen 28 SaO2/FiO2 Ratio 346 Oxygen Delivery Method Room Air Oxygen Flow Rate 0 Narrative Exam Narrative: NAD, alert and oriented. Fluent speech. Lungs are clear, normal rate and effort. Heart is regular, no murmur gallop or rub. Abdomen is soft, non distended. Extremities are free of edema. Left MTP is tender to palpation. Objective Labs 02/13/24 08:21 02/10/24 16:07 Labs: Laboratory Results - last 24 hr 02/12/24 02/12/24 09:30 15:35 ABG Sample Site Left radial ABG pH 7.38 ABG pCO2 40.8 ABG pO2 89 ABG HCO3 24 ABG Total CO2 24 ABG O2 Saturation 97 ABG Base Excess -0.8 Kushal Test Negative O2 Delivery Device Cannula Urine Color Yellow Urine Appearance Clear Urine pH 5.5 Ur Specific [place] 1.015 Urine Protein Negative Urine Glucose (UA) Negative Urine Ketones Negative Urine Occult Blood 1+ H Urine Nitrate Negative Urine Bilirubin Negative Urine Urobilinogen 1.0 Ur Leukocyte Esterase Negative Urine RBC 0-1/hpf Urine WBC None seen Ur Squamous Epith Cells 0-1 /hpf Urine Bacteria None seen Ur Culture Indicated? 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) Malignant neoplasm of prostate (07/08/15) Other iron deficiency anemia (07/08/15) Obstructive sleep apnea syndrome (07/08/15) Mixed hyperlipidemia (01/08/03) Erectile dysfunction due to arterial insufficiency (07/08/15) Coronary artery disease involving [place] coronary artery of [place] heart without angina pectoris (07/08/15) Surgical History S/P CABG x 4 Hip joint replacement status History of tonsillectomy and adenoidectomy Status post appendectomy Family History Father Mental health problem Social History marital status: details: trang Tam, lives on [address] in the summer number of children: 3 household members: spouse lives independently: Yes caregiver/support person: No housing: house occupational status: previously employed Smoking Status: Never smoker alcohol intake: never Assessment & Plan Assessment & Plan narrative: Assessment & Plan narrative: This is an 88-year-old male with right lower lobe pneumonia with symptoms limited to mild hypoxia and extreme fatigue. He became tired and increasingly unable to interact over the last week after returning from a cruise to [place] and flight back from [place]. 1. Sepsis secondary to Right lower lobe pneumonia with acute metabolic encephalopathy, acute respiratory failure with hypoxia and thrombocytopenia -treat with azithromycin and ceftriaxone, slight increase in somnolence today but after muscle relaxant, will hold muscle relaxant -oxygen as needed to keep sats at 90%. -DNR -check TTE to evaluate for possible cardiac component, done but pending read. -PT/OT evaluations -SOFA score is >2 2. Chronic Atrial fibrillation -this appears to be stable -he has not on anticoagulation due to frequent falls -he remains on digoxin 0.125 mg daily and level be drawn and followed while on Zithromax. -Metoprolol was held yesterday for bradycardia, will continue though with improvement today. 3. Macrocytic anemia -Probably CMML related - Chronic Myelomonocytic Leukemia -hemoglobin 9.7 with MCV 113. -Check B12 672 and Iron Level 65 (low normal) with low TIBC, low transferrin. -slightly lower Hg today at 8.1, will repeat tomorrow. Suspect fluids 4. CAD/HTN -S/P CABG -Metoprolol/Lisinopril/HCTZ 5. Hypothyroidism -Levothyroxine -TSH 3.15 6. Gout, left MTP, acute. This is new and active. PLAN: -continue antibiotics -wean oxygen as able -continue physical therapy -prednisone 40 daily for gout, left MTP. Lovenox for DVT Prevention His backup decision makers are his daughter and . Code: DNR Dispo: inpatient, continue PT/OT, recommending SNF on discharge, likely ready in a couple of days. Time-Based Coding :: [TOTAL MINUTES] spent with patient and on the chart (including review of chart, obtaining history, exam, reviewing outside data, placing orders, documenting exam and treatment plan, and counseling patient) on [DATE].
[2024-02-13 08:50] LABS: Hematocrit 26.2 % (41-53); Hemoglobin 8.8 g/dL (13.5-17.5); Mean Corpuscular HGB Conc 33.4 % (30-36); Mean Corpuscular Hemoglobin 37.9 PG (26-34); Mean Corpuscular Volume 113.4 fL (80-100); Platelet Count 84 X10^3/uL (150-400); Red Blood Cell Count 2.31 X10^6/uL (4.5-5.9); Red Cell Distribution Width 17.8 % (11.6-14.8); White Blood Cell Count 5.4 X10^3/uL (4.5-11.0)
[2024-02-13 08:51] LABS: Add Manual Diff / Slide Review YES
[2024-02-13 09:04] LABS: Neutrophils Absolute Manual 1188 /uL (3000-5900); Total Cells Counted 100
[2024-02-13 09:06] LABS: Anisocytosis 1+
[2024-02-13 09:07] LABS: Macrocytosis 2+
[2024-02-13 09:45] VITALS: BP 141/73; PULSE 69
[2024-02-13] MEDS: AZITHROMYCIN 250 MG TABLET PO (09:45)
[2024-02-13] MEDS: lisinopriL 5 MG TABLET PO (09:45)
[2024-02-13] MEDS: METOPROLOL ER 50 MG TABLET PO (09:45)
[2024-02-13] MEDS: DIGOXIN 0.125 MG TABLET PO (09:45)
--- NOTE | 2024-02-13 11:52 | OT.IP.TRT ---
Current Diagnoses Pneumonitis due to inhalation of food and vomit (02/10/24) Occupational Therapy Treatment Note M2 OT-IP Current Condition Start: 02/11/24 12:37 Freq: Status: Active Protocol: Document 02/11/24 12:37 CGR (Rec: 02/11/24 12:47 CGR [id number]) Occupational Therapy Current Condition Current Condition Evaluation Date 02/11/24 Treatment Diagnosis R lower lobe PNA Diagnosis Onset Date 02/10/24 M3 OT- IP Subjective and Pain Start: 02/11/24 12:37 Freq: Status: Active Protocol: Document 02/13/24 12:29 CCC (Rec: 02/13/24 12:38 CCC [id number]) OT- Subjective Occupational Therapy Visit Type Type Treatment Note Visit Start Time 11:53 Visit Stop Time 12:23 Occupational Therapy Visit Comments Patient Comments Pt agreed to get up. Patient/Caregiver Goals Pt is adamant to go home. OT Pain Assessment Pain When Pain Assessed At Rest Pain Present Pain Present Pain Reported Location Left posterior head Pain Behaviors Facial Grimacing M4 OT- IP ADL's Start: 02/11/24 12:37 Freq: Status: Active Protocol: Document 02/13/24 12:29 [facility] (Rec: 02/13/24 12:38 [facility] [id number]) OT ADL-Grooming Comments OT Grooming Comments Pt able to wash his gace after set-up on wash cloth. OT ADL-Oral Care Comments Oral Care Comments Not performed. OT ADL-Dressing General Eval Upper Body Dressing Ability Maximum Assistance Lower Body Dressing Ability Total Assistance Areas Needing Assistance Socks Comments OT Dressing Comments Assist with gown and socks. OT ADL-Toileting General Evaluation Toileting Ability Total Assistance Comments OT Toileting Comments external catheter OT ADL-Bathing Comments OT Bathing Comments Sponge bath more appropriate at this time. M5 OT- IP IADL's Start: 02/11/24 12:37 Freq: Status: Active Protocol: Document 02/11/24 12:37 CGR (Rec: 02/11/24 12:47 CGR [id number]) OT-Instrumental Activities of Daily Living Deficits IADL Deficits Identified No Deficits Home Safety Awareness Awareness of Need for Assistance at Home Decreased Awareness Ability to Problem Solve Emergency Unable to Problem Solve Situations Medication Management Medication Management Caregiver Administers Money Management Money Management Caregiver Provides Assistance Meal Preparation Meal Preparation Caregiver Provides Assist Mold Finisher Mold Finisher Caregiver Provides Assist Driving Driving Comments Pt says that he would like to drive but has not been. M6 OT- IP Functional Cognition Start: 02/11/24 12:37 Freq: Status: Active Protocol: Document 02/11/24 12:37 CGR (Rec: 02/11/24 12:47 CGR [id number]) Cognitive Factors Limiting Selfcare Function Cognitive Ability Level of Alertness Alert Patient Orientation Name,Age,Birthday,Month,Year, Place,Situation Attention Span Ability Unable to Focus,Unable to Sustain Attention Ability to Follow Commands Able to Follow One Step Commands with Increased Time, Able to Follow One Step Commands with Repetition OT- Vision and Hearing OT- Hearing Assessment OT- Hearing Assessment Hearing Impaired,Use of Hearing Aids OT- Vision Assessment Visual Acuity Glasses All The Time Visual Attentiveness WFL Occular Pursuits WFL Visual Convergence Impaired M7 OT- IP Mobility and Balance Start: 02/11/24 12:37 Freq: Status: Active Protocol: Document 02/13/24 12:29 CCC (Rec: 02/13/24 12:38 CCC [id number]) OT- Bed Mobility Assessment Supine to Sit Supine to Sit Assist Maximum Assistance,1 Person Assistance,Head of Bed Elevated,Bedrails Scooting Scooting to Edge of Bed Maximum Assistance,1 Person Assistance OT-Transfer Assessment Sit to and From Stand Sit to and from Stand Maximum Assistance,1 Person Assistance,2 Person Assistance Transfers Transfer Ability Maximum Assistance,1 Person Assistance,2 Person Assistance Technique Transfer Destination Bed,Chair Transfer Technique Stand Step Pivot Devices Transfer Assistive Devices Gait Belt,Front Wheeled Walker Comments Mobility Comments MAX AX 2 to stand to the FWW and another person MAX A to help with pt's balance , assist to guide the FWW, and for hand placement. Pt tends to hold the FWW versus push down on the FWW. Pt heavily leans to the right and posteriorly. At this time safer to transfer pt with cole lift. OT- Balance Assessment Sitting Balance and Reactions Static Sitting Balance Ability Poor Dynamic Sitting Balance Ability Poor Standing Balance and Reactions Static Standing Balance Ability Poor Dynamic Standing Balance Ability Poor M8 OT- IP Objective Assessments Start: 02/11/24 12:37 Freq: Status: Active Protocol: Document 02/11/24 12:37 CGR (Rec: 02/11/24 12:47 CGR [id number]) OT Gross Range of Motion Upper Extremity Range of Motion Assessment Bilaterally Impaired ROM Impairments impairments to the shlds specifically in external rotation. OT Strength Upper Extremity Strength Assessment Within Functional Limits Comments Strength Comments 4/5 OT- Coordination Assessment Upper Extremity Finger to Nose Test Within Functional Limits Finger Tapping Test Within Functional Limits OT-Muscle Tone Assessment Muscle Tone WNL Yes OT Sensation Assessment Edema Edema Absent M9 OT- IP Assessment and Plan Start: 02/11/24 12:37 Freq: Status: Active Protocol: Document 02/13/24 12:29 [facility] (Rec: 02/13/24 12:38 [facility] [id number]) OT Summary Assessment and Plan Potential Rehabilitation Potential Good Analytic Complexity at Evaluation Moderate Summary OT Impairments Pain,Range of Motion,Strength, Balance,Functional Cognition, Functional Mobility,Grooming, Dressing,Toileting,Bathing, Toilet Transfers,Shower Transfers,Activity Tolerance Progress Towards Goals Slow Progress due to Medical Issues,Slow Progress due to Activity Tolerance Assessment Summary Pt still needing extensive assist to stand and transfer with MAXA X 3 with FWW at this time. Pt heavily lean posteriorly and to the right. Per pt's family insistent pt wants to go home and spoke that pt may need mechanical lift to assist with mobility needs. Pt would still benefit from skilled rehab. Goals Self-Feeding Goal Standby Assistance Grooming Goal Standby Assistance Dressing Goal Moderate Assistance Toileting Goal Minimal Assistance Toilet Transfer Goal Moderate Assistance Days to Meet Goals 30 Frequency of Treatment Other frequency 5x a week Treatment Plan OT Treatment Plan ADL Training,Functional Cognition Training,Functional Mobility,Patient/Family Education,Discharge Planning Discharge Recommendations OT Discharge Recommendations SNF Rehab,Home vs SNF Other Discharge Recommendations if going home at this current level will benefit from mechanical lift for transfers. Transportation Needs at Discharge Wheelchair/Cabulance,Stretcher /Ambulance
--- NOTE | 2024-02-13 11:55 | PT.IPTN ---
Current Diagnoses Pneumonitis due to inhalation of food and vomit (02/10/24) Physical Therapy Treatment Note M2 PT-IP Current Condition Start: 02/11/24 11:06 Freq: NEEDED Status: Active Protocol: Document 02/11/24 11:40 MB (Rec: 02/11/24 12:21 MB [id number]) Physical Therapy Current Condition Current Condition Evaluation Date 02/11/24 Treatment Diagnosis PNA, recent fall M3 PT-IP Subjective Start: 02/11/24 11:06 Freq: NEEDED Status: Active Protocol: Document 02/13/24 11:55 AB (Rec: 02/13/24 13:23 AB [id number]) Subjective Physical Therapy Visit Type Type Treatment Note Visit Start Time 11:55 Visit Stop Time 12:25 Number of DISPLAY TRIMMER Visits 0 Physical Therapy Visit Comments Patient Comments agreeable to do PT M4 PT-IP Mobility and Gait Start: 02/11/24 11:06 Freq: NEEDED Status: Active Protocol: Document 02/13/24 11:55 AB (Rec: 02/13/24 13:23 AB [id number]) PT-Bed Mobility Assessment Supine to Sit Supine to Sit Maximum Assistance,1 Person Assistance,Head of Bed Elevated,Bedrails PT-Transfer Assessment Sit to and From Stand Sit to and from Stand Maximum Assistance,2 Person Assistance,Use of Upper Extremities Equipment Transfer Assistive Device Gait Belt,Front Wheeled Walker Orthotic/Prosthetic Devices or Brace: No Transfers Transfer Destination Chair Transfer Technique Stand Pivot Transfer Ability Level of Assist Maximum Assistance,2 Person Assistance,Use of Upper Extremities Comments Mobility Comments pt supine in bed and family in room. pt agreed to get up. completed supine to sit max A and max cues. HOB elevated. pt needing increase time to complete task. pt sat on EOB mod to max A for sitting balance. presents with increase posterior and R side trunk lean. pt able to sit on EOB for ~ 5 min. continued cues to decrease posterior leaning. BP in sittin/82 O2 sat: 92-98% with 1/2 L/min O2. pt completed sit to stand max A x 2 and max cues. continues to have increase trunk leaning with BLE sliding forward needing max A x 2 for steadiness and positioning. pt stood up for a ~ 15 sec and sat back on EOB. pt agreed to stand again and completed max A x 2 and max cues. stand pivot transfer using FWW max A x 2-3 and max cues. (+) knee buckling and max cues for techniques and safety. positioned pt on the chair. call light and table placed within reach. left pt with family in room. 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 Pt with wound lateral right ankle and it is dressed Coordination Assessment Gross Coordination Gross Coordination Impaired Assessment Coordination Comments Slow movement Sensation Assessment Comments Sensation Comments NT Muscle Tone Comments Muscle Tone Comments Increased B PF tone and hamstring tension M6 PT-IP Treatment Start: 02/11/24 11:06 Freq: NEEDED Status: Active Protocol: Document 02/13/24 11:55 AB (Rec: 02/13/24 13:23 AB [id number]) Physical Therapy Treatment Education Education Provided Safety M7 PT-IP Assessment and Plan Start: 02/11/24 11:06 Freq: NEEDED Status: Active Protocol: Document 02/13/24 11:55 AB (Rec: 02/13/24 13:23 AB [id number]) PT Summary Assessment and Plan Potential Rehabilitation Potential Fair Summary Impairments Pain,ROM,Strength,Balance, Coordination,Sensation,Tone, Cognition,Bed Mobility, Transfers,Gait,Activity Tolerance Progress Towards Goals Slow Progress due to Activity Tolerance,Slow Progress - Other Assessment Summary pt requiring max A x 2-3 for transfers using FWW. recommending mechanical lift transfers with nursing staff. pt will require / assist and will benefit from SNF rehab. will continue to assess progress. Goals Bed Mobility Goal Independent Transfer Goal Standby Assistance,Front Wheeled Walker Gait Goal Standby Assistance,Front Wheel Walker Gait Distance 50 Other Goals Pt will maintain static and dynamic sitting balance with I to allow safe functional activities. Days to Meet Goals 10 Frequency of Treatment Frequency Of Treatment Once a Day Treatment Plan Physical Therapy Treatment Plan Bed Mobility Training,Transfer Training,Gait Training, Therapeutic Exercise,Balance Retraining,Discharge Planning, Hot or Cold Pack,Neuromuscular Re-ed,Coordination Retraining ,Manual Therapy Recommendations To Nursing Amount of Assist Needed Mechanical Lift Discharge Recommendations PT Discharge Recommendations Home with 18/09 Assist Available,SNF Rehab,Home vs SNF Transportation Needs at Discharge Wheelchair/Cabulance,Stretcher /Ambulance
[2024-02-13 12:49] VITALS: BP 136/62; PULSE 67; RESP 19; TEMP 36.5; O2SAT 98
[2024-02-13] MEDS: predniSONE 20 MG TABLET 40 MG PO (13:25)
--- NOTE | 2024-02-13 13:38 | CM.DPC ---
DCP Cont. Reviewed EMR and team rounds for status updates. Pt is starting to improve, no longer coughing/wheezing, no fevers. Called pt's dtr to discuss the recommendation from therapies for SNF rehab at d/c, she adamantly refused. She states that they will continue the plan for home w/HH, caregivers, and dtr staying at the home to help until he is more independent. Will continue to monitor for any further d/c assistance needs.
[2024-02-13] MEDS: MIRTAZAPINE 15 MG TABLET PO (17:36)
[2024-02-13] MEDS: cefTRIAXone 1,000 MG in SODIUM CHLORIDE 0.9% 100 ML 200 MG IV (18:55)
[2024-02-13 20:00] VITALS: BP 144/67; PULSE 52; RESP 32; TEMP 36.7; O2SAT 97
[2024-02-13] MEDS: GABAPENTIN 100 MG CAPSULE PO (20:57)
[2024-02-13] MEDS: SODIUM CHLORIDE 0.9% FLUSH 10 ML IV (20:58)
[2024-02-14 02:00] VITALS: BP 155/77; PULSE 75; RESP 30; TEMP 36.3; O2SAT 96
[2024-02-14] MEDS: LEVOTHYROXINE 25 MCG TABLET PO (06:17)
--- NOTE | 2024-02-14 07:51 | P.PN_ITS ---
Subjective Subjective Interval history: Summary: 88-year-old male with admit metabolic encephalopathy, and question of pneumonia and heart failure. Echo is pending, his hemoglobin was 8.1. Subjective: Unfortunately, he was more somnolent overnight and all day today. He was not able to really give any history or talk. Family provides additional history that he was recently on a cruise in [place] and did quite well. His current deterioration is very acute. Exam Vital Signs (past 8 hours): - 02/14/24 02:00 Temperature 97.4 F L Pulse Rate 75 Respiratory Rate 30 H Blood Pressure 155/77 H Pulse Oximetry 96 Oxygen Flow Rate 1 Fraction of Inspired Oxygen 28 SaO2/FiO2 Ratio 346 Oxygen Delivery Method Nasal Cannula Oxygen Flow Rate 1 Narrative Exam Narrative: Somnolent and difficult to arouse. Appears comfortably in his breathing without difficulty. Lungs are clear, normal rate and effort. Heart is regular, no murmur gallop or rub. Abdomen is soft, non distended. Extremities are free of edema. Objective Labs 02/13/24 08:21 02/10/24 16:07 Labs: Laboratory Results - last 24 hr 02/13/24 08:21 WBC 5.4 RBC 2.31 L Hgb 8.8 L Hct 26.2 L MCV 113.4 H MCH 37.9 H MCHC 33.4 RDW 17.8 H Plt Count 84 L Neut % (Auto) Not Reportable Lymph % (Auto) Not Reportable [place] % (Auto) Not Reportable Eos % (Auto) Not Reportable Baso % (Auto) Not Reportable Lymph # (Auto) Not Reportable [place] # (Auto) Not Reportable Baso # (Auto) Not Reportable Total Counted 100 Seg Neutrophils % 22.0 L Lymphocytes % (Manual) 21.0 L Monocytes % (Manual) 54.0 H Eosinophils % (Manual) 3.0 Neutrophils # (Manual) 1188 L RBC Morphology See below Anisocytosis 1+ H Macrocytosis 2+ H PFSH Medical History Actinic keratosis (12/05/04) Compression fracture of first lumbar vertebra Restless legs syndrome (RLS) Osteoporosis (~2017) Compression fracture of thoracic vertebra CMML (chronic myelomonocytic leukemia) (~2017) Neutropenia (04/24/17) Essential hypertension (03/06/16) Aortic sclerosis (07/08/15) Malignant neoplasm of prostate (07/08/15) Other iron deficiency anemia (07/08/15) Obstructive sleep apnea syndrome (07/08/15) Mixed hyperlipidemia (01/08/03) Erectile dysfunction due to arterial insufficiency (07/08/15) Coronary artery disease involving [place] coronary artery of [place] heart without angina pectoris (07/08/15) Surgical History S/P CABG x 4 Hip joint replacement status History of tonsillectomy and adenoidectomy Status post appendectomy Family History Father Mental health problem Social History marital status: details: trang Tam, lives [place] [address] [place] the summer number of children: 3 household members: spouse lives independently: Yes caregiver/support person: No housing: house occupational status: previously employed Smoking Status: Never smoker alcohol intake: never Assessment & Plan Assessment & Plan narrative: 1. Sepsis secondary to Right lower lobe pneumonia with acute metabolic encephalopathy, acute respiratory failure with hypoxia and thrombocytopenia. Present on admission and active. 2. Chronic Atrial fibrillation, present on admission and active. 3. Macrocytic anemia, present on admission and active. 4. CAD, present on admission and active. 5. Hypertension, present on admission and active. -S/P CABG -Metoprolol/Lisinopril/HCTZ 5. Hypothyroidism, present on admission and active. -Levothyroxine -TSH 3.15 6. Gout, left MTP, acute. This is new and active. PLAN: -continue antibiotics -wean oxygen as able -prednisone 40 daily for gout, left MTP. -did a complete review of history, all imaging and laboratory studies since admission. Reviewed his medications. He remains on ceftriaxone. He does have an abnormal x-ray. We will repeat his CMP, CRP, procalcitonin, and a VBG at this point to see if there is any evidence of inflammatory process or hypercapnia. He did meet with the family and we reviewed all of the information to date, as well as the plan. Family does not want SNF Lovenox for DVT Prevention His backup decision makers are his daughter and . Code: DNR Time-Based Coding :: [TOTAL MINUTES] spent with patient and on the chart (including review of chart, obtaining history, exam, reviewing outside data, placing orders, documenting exam and treatment plan, and counseling patient) on [DATE].
[2024-02-14 08:00] VITALS: BP 130/75; PULSE 75; RESP 24; TEMP 36.3; O2SAT 100
--- NOTE | 2024-02-14 11:06 | PT.IPTN ---
Current Diagnoses Pneumonitis due to inhalation of food and vomit (02/10/24) Physical Therapy Treatment Note M2 PT-IP Current Condition Start: 02/11/24 11:06 Freq: NEEDED Status: Active Protocol: Document 02/11/24 11:40 MB (Rec: 02/11/24 12:21 MB [id number]) Physical Therapy Current Condition Current Condition Evaluation Date 02/11/24 Treatment Diagnosis PNA, recent fall M3 PT-IP Subjective Start: 02/11/24 11:06 Freq: NEEDED Status: Active Protocol: Document 02/14/24 12:44 TS (Rec: 02/14/24 13:01 TS [id number]) Subjective Physical Therapy Visit Type Type Treatment Note Visit Start Time 11:06 Visit Stop Time 11:45 Number of ENGINEERING WRITER Visits 1 Physical Therapy Visit Comments Patient Comments Pt found asleep in bed, slow to become alert, pt is agreeable to PT. M4 PT-IP Mobility and Gait Start: 02/11/24 11:06 Freq: NEEDED Status: Active Protocol: Document 02/14/24 12:44 TS (Rec: 02/14/24 13:01 TS [id number]) PT-Bed Mobility Assessment Supine to Sit Supine to Sit Maximum Assistance,1 Person Assistance,Head of Bed Elevated,Bedrails PT-Transfer Assessment Sit to and From Stand Sit to and from Stand Moderate Assistance,Maximum Assistance,1 Person Assistance ,2 Person Assistance Equipment Transfer Assistive Device Gait Belt,Front Wheeled Walker Orthotic/Prosthetic Devices or Brace: No Transfers Transfer Destination Chair,Bedside Commode Transfer Technique Stand Step Pivot Transfer Ability Level of Assist Moderate Assistance,Maximum Assistance,2 Person Assistance Comments Mobility Comments Supine to sit MaxA for uprighting trunk with ENDOSCOPY REGISTERED NURSE. Pt scoots to EOB SBA with cues and slow movement. STS with FWW ModA x2. Pt steps to chair MaxA x2, pt tends to have a posterior lean. STS from the chair MaxA x1 with FWW. Pt ambulates ~5'MaxA with FWW, pt continues to have poor balance. PT requests to use the commode, nursing in to assist with pericare. Pt was left in the chair, all needs met. Gait Assessment Gait Gait Assistance Required: Maximum Assistance,2 Person Assist Distance (Feet) 6 Assistive Devices Assistive Device Gait Belt,Front Wheeled Walker Gait Deviations General Gait Pattern Decreased Stride Length, Decreased Feet Clearance, Flexed Trunk,Narrow Based Gait ,Step-to Gait Factors Limiting Gait Function Factors Limiting Gait Function Decreased Activity Tolerance, Decreased Strength,Difficulty Following Directions,Poor Balance,Poor Safety Awareness, Respiratory Distress PT-Balance Assessment Sitting Balance and Reactions Static Sitting Balance Ability Fair Dynamic Sitting Balance Ability Fair Standing Balance and Reactions Static Standing Balance Ability Poor Dynamic Standing Balance Ability Poor Device Used FWW M5 PT-IP Objective Assessments Start: 02/11/24 11:06 Freq: NEEDED Status: Active Protocol: Document 02/11/24 11:40 MB (Rec: 02/11/24 12:21 MB [id number]) Orientation Orientation/Cognition Level of Alertness Confusional State Orientation Name,Month,Year,Place Safety Awareness Decreased Safety Awareness Memory Description 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 Pt with wound lateral right ankle and it is dressed Coordination Assessment Gross Coordination Gross Coordination Impaired Assessment Coordination Comments Slow movement Sensation Assessment Comments Sensation Comments NT Muscle Tone Comments Muscle Tone Comments Increased B PF tone and hamstring tension M6 PT-IP Treatment Start: 02/11/24 11:06 Freq: NEEDED Status: Active Protocol: Document 02/14/24 12:44 TS (Rec: 02/14/24 13:01 [id number]) Physical Therapy Treatment Education Education Provided Safety M7 PT-IP Assessment and Plan Start: 02/11/24 11:06 Freq: NEEDED Status: Active Protocol: Document 02/14/24 12:44 TS (Rec: 02/14/24 13:01 TS [id number]) PT Summary Assessment and Plan Potential Rehabilitation Potential Fair Summary Impairments Pain,ROM,Strength,Balance, Coordination,Sensation,Tone, Cognition,Bed Mobility, Transfers,Gait,Activity Tolerance Progress Towards Goals Slow Progress due to Activity Tolerance,Slow Progress - Other Assessment Summary Pt continues to make slow progress with his mobility. He requires MaxA bed mobility, did demonstrate better effort today. He ambulated a short distance in the room, he continues to have poor balance . PT continues to recommend SNF vs home 18/09. Goals Bed Mobility Goal Independent Transfer Goal Standby Assistance,Front Wheeled Walker Gait Goal Standby Assistance,Front Wheel Walker Gait Distance 50 Other Goals Pt will maintain static and dynamic sitting balance with I to allow safe functional activities. Days to Meet Goals 10 Frequency of Treatment Frequency Of Treatment Once a Day Treatment Plan Physical Therapy Treatment Plan Bed Mobility Training,Transfer Training,Gait Training, Therapeutic Exercise,Balance Retraining,Discharge Planning, Hot or Cold Pack,Neuromuscular Re-ed,Coordination Retraining ,Manual Therapy Recommendations To Nursing Amount of Assist Needed Mechanical Lift Discharge Recommendations PT Discharge Recommendations Home with 18/09 Assist Available,SNF Rehab,Home vs SNF Transportation Needs at Discharge Wheelchair/Cabulance,Stretcher /Ambulance
--- NOTE | 2024-02-14 11:45 | OT.IP.TRT ---
Current Diagnoses Pneumonitis due to inhalation of food and vomit (02/10/24) Occupational Therapy Treatment Note M2 OT-IP Current Condition Start: 02/11/24 12:37 Freq: Status: Active Protocol: Document 02/11/24 12:37 CGR (Rec: 02/11/24 12:47 CGR [id number]) Occupational Therapy Current Condition Current Condition Evaluation Date 02/11/24 Treatment Diagnosis R lower lobe PNA Diagnosis Onset Date 02/10/24 M3 OT- IP Subjective and Pain Start: 02/11/24 12:37 Freq: Status: Active Protocol: Document 02/14/24 11:52 [facility] (Rec: 02/14/24 12:14 [facility] [id number]) OT- Subjective Occupational Therapy Visit Type Type Treatment Note Visit Start Time 11:06 Visit Stop Time 11:45 Occupational Therapy Visit Comments Patient Comments Pt initially asleep, able to awaken pt and agreed to get up . Patient/Caregiver Goals To go home. OT Pain Assessment Pain When Pain Assessed At Rest Pain Present Pain Present Denied Pain M5 OT- IP IADL's Start: 02/11/24 12:37 Freq: Status: Active Protocol: Document 02/11/24 12:37 CGR (Rec: 02/11/24 12:47 CGR [id number]) OT-Instrumental Activities of Daily Living Deficits IADL Deficits Identified No Deficits Home Safety Awareness Awareness of Need for Assistance at Home Decreased Awareness Ability to Problem Solve Emergency Unable to Problem Solve Situations Medication Management Medication Management Caregiver Administers Money Management Money Management Caregiver Provides Assistance Meal Preparation Meal Preparation Caregiver Provides Assist Research Management Associate Research Management Associate Caregiver Provides Assist Driving Driving Comments Pt says that he would like to drive but has not been. M6 OT- IP Functional Cognition Start: 02/11/24 12:37 Freq: Status: Active Protocol: Document 02/14/24 11:52 [facility] (Rec: 02/14/24 12:14 [facility] [id number]) Cognitive Factors Limiting Selfcare Function Cognitive Ability Level of Alertness Alert Patient Orientation Name,Place Attention Span Ability Capable of Focused Attention, Capable of Sustained Attention Ability to Follow Commands Able to Follow One Step Commands Cognitive Comments Cognitive Assessment Comments Pt more alert after waking pt up and able to states his wants and needs better today. Pt requesting to have a bowel movement. M7 OT- IP Mobility and Balance Start: 02/11/24 12:37 Freq: Status: Active Protocol: Document 02/14/24 11:52 [facility] (Rec: 02/14/24 12:14 [facility] [id number]) OT- Bed Mobility Assessment Supine to Sit Supine to Sit Assist Maximum Assistance,1 Person Assistance Scooting Scooting to Edge of Bed Contact Guard Assistance OT-Transfer Assessment Sit to and From Stand Sit to and from Stand Moderate Assistance,Maximum Assistance,1 Person Assistance ,2 Person Assistance Transfers Transfer Ability Moderate Assistance,Maximum Assistance,2 Person Assistance Technique Transfer Destination Bed,Bedside Commode,Chair Transfer Technique Stand Step Pivot Devices Transfer Assistive Devices Gait Belt,Front Wheeled Walker Comments Mobility Comments Pt able to move his legs to the edge of the bed and mainly assist to help get his trunk upright with MAX AX 1. Pt to stand MAX AX 1-2 to MODA x2 pending on height on the surface. Pt able to take a few steps today with MAX AX 1 to MODA x2, pt still gould posterior lean. Pt's family still insisting pt go home and best for pt to have SNF at this time-otherwise pt will need more assist and possibly need cole lift or sit to stander. OT- Balance Assessment Sitting Balance and Reactions Static Sitting Balance Ability Fair Dynamic Sitting Balance Ability Fair Standing Balance and Reactions Static Standing Balance Ability Poor Dynamic Standing Balance Ability Poor M8 OT- IP Objective Assessments Start: 02/11/24 12:37 Freq: Status: Active Protocol: Document 02/11/24 12:37 CGR (Rec: 02/11/24 12:47 CGR [id number]) OT Gross Range of Motion Upper Extremity Range of Motion Assessment Bilaterally Impaired ROM Impairments impairments to the shlds specifically in external rotation. OT Strength Upper Extremity Strength Assessment Within Functional Limits Comments Strength Comments 4/5 OT- Coordination Assessment Upper Extremity Finger to Nose Test Within Functional Limits Finger Tapping Test Within Functional Limits OT-Muscle Tone Assessment Muscle Tone WNL Yes OT Sensation Assessment Edema Edema Absent M9 OT- IP Assessment and Plan Start: 02/11/24 12:37 Freq: Status: Active Protocol: Document 02/14/24 11:52 [facility] (Rec: 02/14/24 12:14 [facility] [id number]) OT Summary Assessment and Plan Potential Rehabilitation Potential Good Analytic Complexity at Evaluation Moderate Summary OT Impairments Pain,Range of Motion,Strength, Balance,Functional Cognition, Functional Mobility,Grooming, Dressing,Toileting,Bathing, Toilet Transfers,Shower Transfers,Activity Tolerance Progress Towards Goals Progressing Toward Goals Assessment Summary Pt more alert, and improved mobility today and able to transfer to the recliner, and use of BSC.Pt was dependent for all clothing and hygiene needs. Pt needing two person assist for transfers to the recliner. Pt too tired and having to swap the recliner to BSC and back to recliner. Still recommend pt go to SNF. Goals Self-Feeding Goal Standby Assistance Grooming Goal Standby Assistance Dressing Goal Minimal Assistance Toileting Goal Minimal Assistance Toilet Transfer Goal Minimal Assistance Days to Meet Goals 29 Frequency of Treatment Other frequency 5x a week Treatment Plan OT Treatment Plan ADL Training,Functional Cognition Training,Functional Mobility,Patient/Family Education,Discharge Planning Discharge Recommendations OT Discharge Recommendations SNF Rehab,Home vs SNF Other Discharge Recommendations if going home at this current level will benefit from mechanical lift for transfers. Transportation Needs at Discharge Wheelchair/Cabulance,Stretcher /Ambulance
[2024-02-14] MEDS: DIGOXIN 0.125 MG TABLET PO (11:52)
[2024-02-14] MEDS: predniSONE 20 MG TABLET 40 MG PO (11:52)
[2024-02-14] MEDS: SODIUM CHLORIDE 0.9% FLUSH 10 ML IV ×2 (11:53→20:30)
[2024-02-14] MEDS: METOPROLOL ER 50 MG TABLET PO (11:53)
[2024-02-14] MEDS: ENOXAPARIN 40 MG/0.4 ML SYRINGE SUBCUT (11:53)
[2024-02-14] MEDS: lisinopriL 5 MG TABLET PO (11:53)
[2024-02-14] MEDS: AZITHROMYCIN 250 MG TABLET PO (12:00)
[2024-02-14 14:00] VITALS: BP 152/68; PULSE 55; RESP 27; TEMP 36; O2SAT 96
[2024-02-14 14:24] LABS: Alanine Aminotransferase 29 IU/L (<50); Albumin 3.3 g/dL (3.5-5.0); Albumin Globulin Ratio 0.9 (1.0-2.8); Alkaline Phosphatase 105 U/L (38-126); Aspartate Aminotransferase 37 IU/L (17-59); BUN Creatinine Ratio 27.9 (6-22); Bilirubin Total 0.8 mg/dL (0.2-1.3); Blood Urea Nitrogen 19 mg/dL (9-20); Calcium 8.4 mg/dL (8.4-10.2); Carbon Dioxide 25 mmol/L (22-32); Chloride 109 mmol/L (98-107); Estimated Glomerular Filt Rate > 60 mL/min (>60); Globulin 3.6 g/dL (1.7-4.1); Glucose 120 mg/dL (80-110); HEMOLYSIS < 15 (0-50); Potassium 4.1 mmol/L (3.4-5.1); Sodium 139 mmol/L (137-145); Total Protein 6.9 g/dL (6.3-8.2)
[2024-02-14 14:26] LABS: C-Reactive Protein Quant 3.3 mg/dL (<1.0)
--- NOTE | 2024-02-14 14:42 | CM.DPNOTE ---
DCP Cont According to Mallory at [facility], HH RN can see patient for wound care 02/18. CM team following clinical course closely. NICOL unknown. PATY
[2024-02-14 15:27] LABS: Base Excess VBG 0.8 mmol/L (0-4); HCO3 VBG 26 mmol/L (24-28); Oxygen Saturation VBG 96 % (70-75); PCO2 VBG 42.1 mmHg (45-50); PO2 VBG 84 mmHg (35-45); Total CO2 VBG 25 mmol/L (24-29)
--- NOTE | 2024-02-14 16:48 | PC.NURSE ---
Patient is sitting up in his chair, he has been groggy and confused for most of the day. He has used his call lugo a few times, and does have really clear moments of clarity. He asked to be scooted up in the chair. Patients family here earlier, patient is not eating well at meals. Will try and persuade him to eat some dinner. He has a small, healing pressure ulcer on his bottom. Patient being turned side to side every couple hours when he is in bed. Resting comfortably now.
[2024-02-14] MEDS: MIRTAZAPINE 15 MG TABLET PO (18:39)
[2024-02-14] MEDS: ACETAMINOPHEN 325 MG TABLET 650 MG PO (18:39)
[2024-02-14] MEDS: cefTRIAXone 1,000 MG in SODIUM CHLORIDE 0.9% 100 ML 200 MG IV (18:39)
[2024-02-14 20:00] VITALS: O2SAT 95
[2024-02-14] MEDS: GABAPENTIN 100 MG CAPSULE PO (20:29)
[2024-02-15 00:10] VITALS: BP 110/66; PULSE 56; RESP 22; TEMP 36.4; O2SAT 95
[2024-02-15 05:35] VITALS: BP 125/54; PULSE 53; RESP 20; TEMP 36.1; O2SAT 95
[2024-02-15] MEDS: LEVOTHYROXINE 25 MCG TABLET PO (05:59)
--- NOTE | 2024-02-15 07:21 | P.PN_ITS ---
Subjective Subjective Interval history: Summary: This is an 88-year-old male admitted with presumed pneumonia with slow improvement. He was on [place] with his , declined residential facility. His daughter lives in [place]. Subjective: He feels much better today. He was off oxygen and breathing comfortably. No cough. He denies any confusion was able to get up with physical therapy and ambulate around the room. Exam Vital Signs (past 8 hours): - 02/15/24 00:10 02/15/24 05:35 Temperature 97.5 F L 97.0 F L Pulse Rate 56 L 53 L Respiratory Rate 22 20 Blood Pressure 110/66 125/54 L Pulse Oximetry 95 95 Oxygen Flow Rate 0 0 Fraction of Inspired Oxygen 28 SaO2/FiO2 Ratio 346 Oxygen Delivery Method Room Air Oxygen Flow Rate 0 Narrative Exam Narrative: NAD, alert and oriented. Fluent speech. He appears much more energetic today than he has. Lungs are clear, normal rate and effort. Heart is regular, no murmur gallop or rub. Abdomen is soft, non distended. Extremities are free of edema. Objective Labs 02/13/24 08:21 02/14/24 13:50 Labs: Laboratory Results - last 24 hr 02/14/24 02/14/24 13:50 15:24 VBG pH 7.40 VBG pCO2 42.1 L VBG pO2 84 H VBG HCO3 26 VBG Total CO2 25 VBG O2 Saturation 96 H VBG Base Excess 0.8 Sodium 139 Potassium 4.1 Chloride 109 H Carbon Dioxide 25 BUN 19 Creatinine 0.68 Estimated GFR > 60 BUN/Creatinine Ratio 27.9 H Glucose 120 H Calcium 8.4 Total Bilirubin 0.8 AST 37 ALT 29 Alkaline Phosphatase 105 C-Reactive Protein 3.3 H Total Protein 6.9 Albumin 3.3 L Globulin 3.6 Albumin/Globulin Ratio 0.9 L Procalcitonin 0.120 PFSH Medical History Actinic keratosis (12/05/04) Compression fracture of first lumbar vertebra Restless legs syndrome (RLS) Osteoporosis (~2017) Compression fracture of thoracic vertebra CMML (chronic myelomonocytic leukemia) (~2018) Neutropenia (06/19/16) Essential hypertension (03/06/16) Aortic sclerosis (07/08/15) Malignant neoplasm of prostate (07/08/15) Other iron deficiency anemia (07/08/15) Obstructive sleep apnea syndrome (07/08/15) Mixed hyperlipidemia (01/08/03) Erectile dysfunction due to arterial insufficiency (07/08/15) Coronary artery disease involving [place] coronary artery of [place] heart without angina pectoris (07/08/15) Surgical History S/P CABG x 4 Hip joint replacement status History of tonsillectomy and adenoidectomy Status post appendectomy Family History Father Mental health problem Social History marital status: details: trang Tam, lives [place] number of children: 3 household members: spouse lives independently: Yes caregiver/support person: No housing: house occupational status: previously employed Smoking Status: Never smoker alcohol intake: never Assessment & Plan Assessment & Plan narrative: 1. Sepsis secondary to Right lower lobe pneumonia. Present on admission and improved. 2. Septic encephalopathy, present on admission and resolved. 3. Acute hypoxic respiratory failure, present on admission and resolved. 4. Thrombocytopenia, present on admission and stable. 5. Chronic Atrial fibrillation, present on admission and stable. 6. Macrocytic anemia, present on admission and stable. 7. CAD, present on admission and stable. 8. Hypertension, present on admission and stable. 9. CAD-S/P CABG, present on admission and stable. -Metoprolol/Lisinopril/HCTZ 10. Hypothyroidism, present on admission and stable. -Levothyroxine -TSH 3.15 11. Gout, left MTP, acute. This is new and active. PLAN: -continue antibiotics -prednisone 40 daily for gout, left MTP. He was much improved today and can likely discharge Sunday or Sunday. On [facility] of the family will plan and we will work with them on what day works better. I think he likely will be stable enough to go home on Sunday based on his improvement today. We will leave him on IV antibiotics for now and continue the oral prednisone for his improved foot gout symptoms. NICOL: Family does not want SNF Lovenox for DVT Prevention His backup decision makers are his daughter and . Code: DNR Time-Based Coding :: [TOTAL MINUTES] spent with patient and on the chart (including review of chart, obtaining history, exam, reviewing outside data, placing orders, documenting exam and treatment plan, and counseling patient) on [DATE].
[2024-02-15 08:00] VITALS: BP 140/66; PULSE 59; RESP 24; TEMP 36.3; O2SAT 96
[2024-02-15] MEDS: DIGOXIN 0.125 MG TABLET PO (08:32)
[2024-02-15] MEDS: lisinopriL 5 MG TABLET PO (08:32)
[2024-02-15] MEDS: METOPROLOL ER 50 MG TABLET PO (08:32)
[2024-02-15] MEDS: predniSONE 20 MG TABLET 40 MG PO (08:32)
[2024-02-15] MEDS: ENOXAPARIN 40 MG/0.4 ML SYRINGE SUBCUT (08:32)
[2024-02-15] MEDS: SODIUM CHLORIDE 0.9% FLUSH 10 ML IV ×2 (08:34→20:53)
--- NOTE | 2024-02-15 10:40 | DIET.CONS ---
Dietary Consultation Note Admission Date: 02/10/2024 18:05 Assessment: 88 y M admitted for sepsis secondary to pneumonia with metabolic encephalopathy. RD screened for LOS. Met with pt at bedside. Had some outside food from [employer] in room. Reports a few days of decreased appetite, but feels it has returned to normal. Outside of hospital had normal appetite. Has noted some weight loss over last 3-6 months. Working to increase portion sizes to gain weight back, reports has noted weight gain, was 67.7 kg. Would like 1 Ensure a day to help support EER. Recorded PO intakes average >75% during this admission. Note that in last RD consult in July pt reports between Mar-May d/t fracture, multiple hospitalizations, decreased appetite during that time with weight loss. Ht: 182.88 cm Wt: 69.853 kg BMI: 20.9 (underweight for age) UBW: per pt 77 kg- 77.11 kg on 06/26/23 (-9% weight loss in 8 months, non-severe), 73.936 kg on 08/07/23 (-5.5% weight loss in 6 months, non-severe) Last BM: 02/14/24 (02/14/24 12:39) MNA: Errol Score: 18 Diet: 02/11/24 Breakfast Heart Healthy Diet Diet Modifications: Nutrition Percent Meal Consumed 75% 02/14/24 18:00 Percent Meal Consumed 0% 02/14/24 12:39 Percent Meal Consumed 75% 02/13/24 18:00 Labs: RBC 2.31 X10^6/uL (4.5-5.9) L 02/13/24 08:21 Hgb 8.8 g/dL (13.5-17.5) L 02/13/24 08:21 Hct 26.2 % (41-53) L 02/13/24 08:21 Creatinine 0.68 mg/dL (0.66-1.25) 02/14/24 13:50 Lactate 1.2 mmol/L (0.7-2.1) 02/10/24 16:07 Iron 65 ug/dL (49-181) 02/11/24 04:30 % Saturation 36 % (20-50) 02/11/24 04:30 Nutrition Diagnosis: Unintentional weight loss r/t previously decreased PO intakes, increased energy-protein needs aeb 5.5% weight loss in 6 months (non-severe), sepsis, multiple previous hospitalizations Interventions: - ONS 1x/day -Discussed ways to increase energy intake at meals and additional of snacks/ONS EER: [id number] kcals (25-30 kcals/kg) 90 g (1.25 g/kg) Monitoring/Evaluations: po intakes Electronically Signed by: Carolyne Kim 02/15/24 10:40 Clinical Dietitian [address] [id number]
--- NOTE | 2024-02-15 11:11 | CM.DPNOTE ---
DCP Cont Reviewed chart. Patient discussed in multidisciplinary rounds. NICOL still 24-48 hours out at least. Plan remains discharge home w/family back to [place], resume in home caregivers, [facility] 02/20. CM team following closely to assist with discharge coordination. PATY
--- NOTE | 2024-02-15 12:08 | OT.IP.TRT ---
Current Diagnoses Pneumonitis due to inhalation of food and vomit (02/10/24) Occupational Therapy Treatment Note M2 OT-IP Current Condition Start: 02/11/24 12:37 Freq: Status: Active Protocol: Document 02/11/24 12:37 CGR (Rec: 02/11/24 12:47 CGR [id number]) Occupational Therapy Current Condition Current Condition Evaluation Date 02/11/24 Treatment Diagnosis R lower lobe PNA Diagnosis Onset Date 02/10/24 M3 OT- IP Subjective and Pain Start: 02/11/24 12:37 Freq: Status: Active Protocol: Document 02/15/24 12:09 [facility] (Rec: 02/15/24 12:16 CCC [id number]) OT- Subjective Occupational Therapy Visit Type Type Treatment Note Visit Start Time 11:40 Visit Stop Time 12:08 Occupational Therapy Visit Comments Patient Comments Pt agreed to get up. Patient/Caregiver Goals TO go home. OT Pain Assessment Pain When Pain Assessed At Rest Pain Present Pain Present Denied Pain M4 OT- IP ADL's Start: 02/11/24 12:37 Freq: Status: Active Protocol: Document 02/15/24 12:09 [facility] (Rec: 02/15/24 12:16 CCC [id number]) OT [id number] Comments OT Self-Feeding Comments Not at meal time. OT ADL-Grooming General Evaluation Grooming Ability Standby Assistance Areas Needing Assistance Retrieving/Set-up of Grooming Items Comments OT Grooming Comments Pt able to business continuity planning director front of the sink with the FWW and left hand on the counter for balance for grooming needs. OT ADL-Oral Care General Eval Oral Care Ability Independent OT ADL-Dressing General Eval Lower Body Dressing Ability Maximum Assistance Areas Needing Assistance Socks M5 OT- IP IADL's Start: 02/11/24 12:37 Freq: Status: Active Protocol: Document 02/11/24 12:37 CGR (Rec: 02/11/24 12:47 CGR [id number]) OT-Instrumental Activities of Daily Living Deficits IADL Deficits Identified No Deficits Home Safety Awareness Awareness of Need for Assistance at Home Decreased Awareness Ability to Problem Solve Emergency Unable to Problem Solve Situations Medication Management Medication Management Caregiver Administers Money Management Money Management Caregiver Provides Assistance Meal Preparation Meal Preparation Caregiver Provides Assist Oil Lease Broker Oil Lease Broker Caregiver Provides Assist Driving Driving Comments Pt says that he would like to drive but has not been. M6 OT- IP Functional Cognition Start: 12/16/24 12:37 Freq: Status: Active Protocol: Document 02/15/24 12:09 [facility] (Rec: 02/15/24 12:16 [facility] [id number]) Cognitive Factors Limiting Selfcare Function Cognitive Ability Level of Alertness Alert Attention Span Ability Capable of Focused Attention, Capable of Sustained Attention Ability to Follow Commands Able to Follow One Step Commands Cognitive Comments Cognitive Assessment Comments Pt much more alert today and able to talk about current events. Pt able to follow commands for ADL and mobility needs. M7 OT- IP Mobility and Balance Start: 02/11/24 12:37 Freq: Status: Active Protocol: Document 02/15/24 12:09 [facility] (Rec: 02/15/24 12:16 [facility] [id number]) OT-Transfer Assessment Sit to and From Stand Sit to and from Stand Moderate Assistance,1 Person Assistance Transfers Transfer Ability Minimal Assistance Technique Transfer Destination Chair Transfer Technique Stand Step Pivot Devices Transfer Assistive Devices Gait Belt,Front Wheeled Walker Comments Mobility Comments Pt able to come to stand with one person assist and another for safety to the FWW and able to take steps to the sink. Pt needing cues to keep his feet apart and keep his shoulders relaxed and stand upright. OT- Balance Assessment Sitting Balance and Reactions Static Sitting Balance Ability Good Dynamic Sitting Balance Ability Fair Standing Balance and Reactions Static Standing Balance Ability Fair Dynamic Standing Balance Ability Poor M8 OT- IP Objective Assessments Start: 02/11/24 12:37 Freq: Status: Active Protocol: Document 02/11/24 12:37 CGR (Rec: 02/11/24 12:47 CGR [id number]) OT Gross Range of Motion Upper Extremity Range of Motion Assessment Bilaterally Impaired ROM Impairments impairments to the shlds specifically in external rotation. OT Strength Upper Extremity Strength Assessment Within Functional Limits Comments Strength Comments 4/5 OT- Coordination Assessment Upper Extremity Finger to Nose Test Within Functional Limits Finger Tapping Test Within Functional Limits OT-Muscle Tone Assessment Muscle Tone WNL Yes OT Sensation Assessment Edema Edema Absent M9 OT- IP Assessment and Plan Start: 02/11/24 12:37 Freq: Status: Active Protocol: Document 02/15/24 12:09 [facility] (Rec: 02/15/24 12:16 [facility] [id number]) OT Summary Assessment and Plan Potential Rehabilitation Potential Good Analytic Complexity at Evaluation Moderate Summary OT Impairments Pain,Range of Motion,Strength, Balance,Functional Cognition, Functional Mobility,Grooming, Dressing,Toileting,Bathing, Toilet Transfers,Shower Transfers,Activity Tolerance Progress Towards Goals Progressing Toward Goals Assessment Summary Pt making much improvement with ADl and mobility needs. Pt to go home with 24/7 assist and home health when medically stable. Goals Self-Feeding Goal Independent Grooming Goal Independent Dressing Goal Standby Assistance Toileting Goal Standby Assistance Bathing Goal Minimal Assistance Toilet Transfer Goal Standby Assistance Days to Meet Goals 20 Frequency of Treatment Other frequency 5x a week Treatment Plan OT Treatment Plan ADL Training,Functional Cognition Training,Functional Mobility,Patient/Family Education,Discharge Planning Discharge Recommendations OT Discharge Recommendations Home with 24/7 Assist Available,Home Health Transportation Needs at Discharge Private Vehicle
--- NOTE | 2024-02-15 12:22 | PC.NURSE ---
Patient is doing better with orienteation and mentation today. He is up in the chair, 2 person max assist with transfers to the bed and chair. Patient has a tendancy to liean back and try to slide his feet to the chair and it is hard for him to try and take steps. His r.leg is weak, and he has an old fx to his left pinky finger. Eating lunch now and family is in room visting.
--- NOTE | 2024-02-15 12:25 | PT.IPTN ---
Current Diagnoses Pneumonitis due to inhalation of food and vomit (02/10/24) Physical Therapy Treatment Note M2 PT-IP Current Condition Start: 02/11/24 11:06 Freq: NEEDED Status: Active Protocol: Document 02/11/24 11:40 MB (Rec: 02/11/24 12:21 MB [id number]) Physical Therapy Current Condition Current Condition Evaluation Date 02/11/24 Treatment Diagnosis PNA, recent fall M3 PT-IP Subjective Start: 02/11/24 11:06 Freq: NEEDED Status: Active Protocol: Document 02/15/24 12:12 KJ (Rec: 02/15/24 12:25 KJ [id number]) Subjective Physical Therapy Visit Type Type Treatment Note Visit Start Time 11:41 Visit Stop Time 12:09 Notes Pt up in chair per nursing. Physical Therapy Visit Comments Patient Comments Pt reports feeling better, no pain. Only remembers being here for 1 day. Patient Goals To go home Therapy Pain Assessment Pain When Pain Assessed At Rest Pain Present Pain Present Denied Pain M4 PT-IP Mobility and Gait Start: 02/11/24 11:06 Freq: NEEDED Status: Active Protocol: Document 02/15/24 12:12 KJ (Rec: 02/15/24 12:25 KJ [id number]) PT-Transfer Assessment Sit to and From Stand Sit to and from Stand Moderate Assistance,1 Person Assistance Equipment Transfer Assistive Device Gait Belt,4 Wheeled Walker Transfers Transfer Technique sit to stand Transfer Ability Level of Assist Moderate Assistance,1 Person Assistance Comments Mobility Comments Improved ability to stand today, more alert. Continues to have some retropulsion, noted improving ability to correct balance during treatment session. Gait Assessment Gait Gait Assistance Required: Minimum Assistance Distance (Feet) 8 Assistive Devices Assistive Device Gait Belt,4 Wheeled Walker Orthotic/Prosthetic Devices or Brace: No Gait Deviations General Gait Pattern Decreased Stride Length,Flexed Trunk,Narrow Based Gait Factors Limiting Gait Function Factors Limiting Gait Function Decreased Activity Tolerance, Poor Balance Comments Gait Comments Encouraged a wider stance - pt states he has been told this in the past. Cuing provided for upright standing, shoulder relaxation, forward gaze. PT-Balance Assessment Sitting Balance and Reactions Static Sitting Balance Ability Good Dynamic Sitting Balance Ability Fair Standing Balance and Reactions Static Standing Balance Ability Poor Dynamic Standing Balance Ability Poor Device Used 4ww Comments Other Balance Tests/Deviations/Treatment Pt demonstrates improving : ability to maintain upright balance. M5 PT-IP Objective Assessments Start: 02/11/24 11:06 Freq: NEEDED Status: Active Protocol: Document 02/15/24 12:12 KJ (Rec: 02/15/24 12:25 KJ [id number]) Orientation Orientation/Cognition Level of Alertness Alert Orientation Name,Birthday,Place Comments Pt has difficulty with some details but was able to ask us about the affect of the possible government shut down, demonstrating knowledge of current events. Gross Range of Motion Upper Extremity ROM Assessment Left Impaired Impairments L shoulder limited, L 5th finger injured Lower Extremity ROM Assessment Within Functional Limits Strength Lower Extremity Strength Knee 4+/5 knee extension Ankle 5/5 ankle plantar/dorsiflex Other Assessments Other Other Assessments pt tends to be stiff in multiple joints, possibly due to prolonged hospitalization. he is more alert and aware today, demonstrating good progress. M6 PT-IP Treatment Start: 02/11/24 11:06 Freq: NEEDED Status: Active Protocol: Document 02/15/24 12:12 KJ (Rec: 02/15/24 12:25 KJ [id number]) Physical Therapy Treatment Other Treatments Other Treatment Performed deep breathing, shoulder relaxation. Standing balance at sink during ADLs M7 PT-IP Assessment and Plan Start: 02/11/24 11:06 Freq: NEEDED Status: Active Protocol: Document 02/15/24 12:12 KJ (Rec: 02/15/24 12:25 KJ [id number]) PT Summary Assessment and Plan Potential Rehabilitation Potential Excellent Status of Condition at Evaluation Evolving Summary Impairments ROM,Strength,Balance,Transfers ,Gait,Activity Tolerance Progress Towards Goals Progressing Toward Goals Assessment Summary Demonstrates improvement from needing 2 assists for transfer to needing 1 assist (mod assist) for sit to stand. Goals Bed Mobility Goal Independent Transfer Goal Standby Assistance Gait Goal Standby Assistance Gait Distance 25 Days to Meet Goals 3 Frequency of Treatment Frequency Of Treatment Once a Day Treatment Plan Physical Therapy Treatment Plan Bed Mobility Training,Transfer Training,Gait Training, Therapeutic Exercise,Balance Retraining Recommendations To Nursing Amount of Assist Needed 2 Person Assist Discharge Recommendations PT Discharge Recommendations Home with 18/09 Assist Available,Home Health Transportation Needs at Discharge Private Vehicle
[2024-02-15 14:00] VITALS: BP 119/59; PULSE 52; RESP 14; TEMP 36.1; O2SAT 96
[2024-02-15] MEDS: MIRTAZAPINE 15 MG TABLET PO (18:12)
[2024-02-15 20:00] VITALS: O2SAT 94
[2024-02-15] MEDS: GABAPENTIN 100 MG CAPSULE PO (20:54)
[2024-02-15 22:19] VITALS: BP 142/62; PULSE 50; RESP 16; TEMP 35.9; O2SAT 93
[2024-02-16 05:58] LABS: Add Manual Diff / Slide Review NO; Basophils Absolute Auto 0 /uL (0-100); Basophils Percent Auto 0.4 % (0-2); Eosinophils Absolute Auto 0 /uL (0-450); Hematocrit 24.8 % (41-53); Hemoglobin 8.1 g/dL (13.5-17.5); Lymphocytes Absolute Auto 500 /uL (1100-4500); Lymphocytes Percent Auto 18.4 % (25-40); Mean Corpuscular HGB Conc 32.8 % (30-36); Mean Corpuscular Hemoglobin 37.2 PG (26-34); Mean Corpuscular Volume 113.3 fL (80-100); Monocytes Absolute Auto 800 /uL (0-900); Monocytes Percent Auto 28.9 % (3-14); Neutrophils Absolute Auto 1500 /uL (1500-7000); Neutrophils Percent Auto 52.3 % (50-75); Platelet Count 87 X10^3/uL (150-400); Red Blood Cell Count 2.18 X10^6/uL (4.5-5.9); Red Cell Distribution Width 17.4 % (11.6-14.8); White Blood Cell Count 2.8 X10^3/uL (4.5-11.0)
[2024-02-16 06:00] VITALS: BP 133/59; PULSE 50; RESP 16; TEMP 35.8; O2SAT 97
[2024-02-16 06:03] LABS: BUN Creatinine Ratio 42.9 (6-22); Blood Urea Nitrogen 30 mg/dL (9-20); Calcium 8.5 mg/dL (8.4-10.2); Carbon Dioxide 24 mmol/L (22-32); Chloride 109 mmol/L (98-107); Estimated Glomerular Filt Rate > 60 mL/min (>60); Glucose 124 mg/dL (80-110); HEMOLYSIS < 15 (0-50); Potassium 4.4 mmol/L (3.4-5.1); Sodium 139 mmol/L (137-145)
[2024-02-16] MEDS: LEVOTHYROXINE 25 MCG TABLET PO (06:17)
[2024-02-16 06:31] LABS: Acanthocytes 1+; Anisocytosis 1+; Macrocytosis 2+; Poikilocytosis 1+
[2024-02-16 08:00] VITALS: BP 144/51; PULSE 46; RESP 18; TEMP 35.9; O2SAT 95
[2024-02-16 08:54] VITALS: BP 144/51
[2024-02-16] MEDS: predniSONE 20 MG TABLET 40 MG PO (08:54)
[2024-02-16] MEDS: METOPROLOL ER 50 MG TABLET PO (08:54)
[2024-02-16] MEDS: ENOXAPARIN 40 MG/0.4 ML SYRINGE SUBCUT (08:54)
[2024-02-16] MEDS: DIGOXIN 0.125 MG TABLET PO (08:54)
[2024-02-16 08:55] VITALS: BP 144/51
[2024-02-16] MEDS: lisinopriL 5 MG TABLET PO (08:55)
--- NOTE | 2024-02-16 09:15 | PT.IPTN ---
Current Diagnoses Pneumonitis due to inhalation of food and vomit (02/10/24) Physical Therapy Treatment Note M2 PT-IP Current Condition Start: 02/11/24 11:06 Freq: NEEDED Status: Active Protocol: Document 02/11/24 11:40 MB (Rec: 02/11/24 12:21 MB [id number]) Physical Therapy Current Condition Current Condition Evaluation Date 02/11/24 Treatment Diagnosis PNA, recent fall M3 PT-IP Subjective Start: 02/11/24 11:06 Freq: NEEDED Status: Active Protocol: Document 02/16/24 09:15 AB (Rec: 02/16/24 13:19 AB [id number]) Subjective Physical Therapy Visit Type Type Treatment Note Visit Start Time 09:15 Visit Stop Time 09:45 Number of CYTOTECHNOLOGIST Visits 0 Physical Therapy Visit Comments Patient Comments agreeable to do PT M4 PT-IP Mobility and Gait Start: 02/11/24 11:06 Freq: NEEDED Status: Active Protocol: Document 02/16/24 09:15 AB (Rec: 02/16/24 13:19 AB [id number]) PT-Bed Mobility Assessment Supine to Sit Supine to Sit Standby Assistance Sit to Supine Sit to Supine Standby Assistance PT-Transfer Assessment Sit to and From Stand Sit to and from Stand Minimal Assistance,Moderate Assistance,1 Person Assistance ,Use of Upper Extremities Equipment Transfer Assistive Device Gait Belt,Front Wheeled Walker Orthotic/Prosthetic Devices or Brace: No Transfers Transfer Destination Bed,Chair Transfer Technique ambulated Transfer Ability Level of Assist Minimal Assistance,Moderate Assistance,1 Person Assistance ,Use of Upper Extremities Comments Mobility Comments pt sitting on the chair and daughter in room. pt agreed to do PT. pt completed sit to stand min to mod A and cues and ambulated in room ~ 40 ft using FWW min A to mod A and cues for upright posture and RLE stability. pt sat back on chair. caregiver training conducted with pt's daughter. educated daughter on how to use safety belt nd how to assist pt. daughter was able to put safety belt on pt. daughter assisted pt with sit to stand and was able to ambulate pt in room ~ 35 ft using FWW. pt sat on EOB. completed sit<>supinen SBA. pt transferred to chair using fWW min to mod A and cues step transfer. positioned pt on the chair. call light and table placed within reach. daughter without further concerns. stated that pt has 18/09 assist at home and that she will be at home with pt until next week. Gait Assessment Gait Gait Assistance Required: Minimum Assistance,Moderate Assistance Distance (Feet) 40 Able to Maintain Weight Bearing Status Yes During Gait Assistive Devices Assistive Device Gait Belt,Front Wheeled Walker Orthotic/Prosthetic Devices or Brace: No Gait Deviations General Gait Pattern Decreased Stride Length, Decreased Feet Clearance, Flexed Trunk,Step-to Gait Factors Limiting Gait Function Factors Limiting Gait Function Decreased Activity Tolerance, Decreased Strength,Difficulty Following Directions,Limited Range of Motion,Poor Balance, Poor Safety Awareness M5 PT-IP Objective Assessments Start: 02/11/24 11:06 Freq: NEEDED Status: Active Protocol: Document 02/15/24 12:12 KJ (Rec: 02/15/24 12:25 KJ [id number]) Orientation Orientation/Cognition Level of Alertness Alert Orientation Name,Birthday,Place Comments Pt has difficulty with some details but was able to ask us about the affect of the possible government shut down, demonstrating knowledge of current events. Gross Range of Motion Upper Extremity ROM Assessment Left Impaired Impairments L shoulder limited, L 5th finger injured Lower Extremity ROM Assessment Within Functional Limits Strength Lower Extremity Strength Knee 4+/5 knee extension Ankle 5/5 ankle plantar/dorsiflex Other Assessments Other Other Assessments pt tends to be stiff in multiple joints, possibly due to prolonged hospitalization. he is more alert and aware today, demonstrating good progress. M6 PT-IP Treatment Start: 02/11/24 11:06 Freq: NEEDED Status: Active Protocol: Document 02/16/24 09:15 AB (Rec: 02/16/24 13:19 AB [id number]) Physical Therapy Treatment Education Education Provided Safety M7 PT-IP Assessment and Plan Start: 02/11/24 11:06 Freq: NEEDED Status: Active Protocol: Document 02/16/24 09:15 AB (Rec: 02/16/24 13:19 AB [id number]) PT Summary Assessment and Plan Potential Rehabilitation Potential Fair Summary Impairments Pain,ROM,Strength,Balance, Coordination,Sensation,Tone, Cognition,Bed Mobility, Transfers,Gait,Activity Tolerance Progress Towards Goals Slow Progress due to Medical Issues,Slow Progress due to Activity Tolerance Assessment Summary pt progressing with mobility and was able to ambulate using fWW min to mod A and uces ~ 40 ft. caregiver training conducted and pt's daughter was able to assist pt with mobility. pt plans to go home with 24/7 assist. pt will benefit from HHPT. Goals Bed Mobility Goal Independent Transfer Goal Standby Assistance,Front Wheeled Walker Gait Goal Standby Assistance,Front Wheel Walker Gait Distance 50 Days to Meet Goals 10 Frequency of Treatment Frequency Of Treatment Once a Day Treatment Plan Physical Therapy Treatment Plan Bed Mobility Training,Transfer Training,Gait Training, Therapeutic Exercise,Balance Retraining,Neuromuscular Re-ed Recommendations To Nursing Amount of Assist Needed 1 Person Assist Discharge Recommendations PT Discharge Recommendations Home with 24/7 Assist Available,Home Health Transportation Needs at Discharge Private Vehicle
[2024-02-16] MEDS: SODIUM CHLORIDE 0.9% FLUSH 10 ML IV (09:39)
--- NOTE | 2024-02-16 13:54 | PC.NURSE ---
D/c instructions reviewed with pt. Pt was given one day's worth of prednisone from pharmacy to take home until he can get his prescription filled from his preferred pharmacy. IV removed. Pt exited via w/c.
--- NOTE | 2024-02-16 14:56 | CM.DPNOTE ---
DC Note Discharge home with family, caregivers and [facility] . Updated Mallory at [facility] with patient's discharge. PATY
--- NOTE | 2024-02-16 19:43 | P.DS_ITS ---
History of Present Illness History of Present Illness Chief complaint: return from 02/08 not better, getting worse Narrative: Per history and physical: This is an 88-year-old male with coronary artery disease, restless legs syndrome, osteoporosis, CMML, hypertension thrombocytopenia, iron-deficiency anemia and sleep apnea who presents from [place] with right lower lobe pneumonia. He has been weak, tired and sleepy for the last 7 days after returning from a 17 day [employer] cruise. He flew home from [place] to [place] and has been falling down, weak since then. He was diagnosed with pneumonia last night in the ED and treated with oral antibiotics which he was not able to get because of potential interactions with digoxin. He returns with continued symptoms and is now mildly hypoxic requiring 1 L of oxygen. He has had no fevers, chills, chest pain, coughing or shortness of breath. He has a broken finger from a fall this week. Discharge Providers Provider Date of admission: 02/10/24 18:05 Discharge Date: 02/16/24 Primary care physician: Gloria Olson MD Consults: 02/11/24 10:05 Consult to Occupational Therapy Evaluate & Treat Comment: Physician Instructions: Evaluate and treat Consult to Physical Therapy Evaluate & Treat Comment: Physician Instructions: Evaluate and Treat Discharge provider: Ambar Smith MD Summary Hospital Course Discharge Diagnosis: 1. Right lower lobe pneumonia, improved 2. Sepsis, due to right lower lobe pneumonia, resolved 3. Acute hypoxic respiratory failure, resolved 4. Acute leukopenia, likely postinfectious, needs follow-up 5. CMML with chronic thrombocytopenia and anemia 6. Chronic atrial fibrillation 7. CAD, chronic, stable 8. Hypertension, chronic, stable 9. Hypothyroidism 10. Acute gout, left great toe, improved Hospital Course: Patient presented to the hospital with weakness, fatigue, and sleepiness for approximately 7 days. He had been on a 17 day cruise prior. He was found to have pneumonia. He was admitted and placed on antibiotics. He continued to require supplemental oxygen for the 1st several days of his hospital stay. He subsequently developed gout on February 12. By February 14, he was successfully weaned off of oxygen and feeling quite a bit better. He was able to work with physical therapy and ambulate around the room. On February 15, he was anxious to be discharged home. He did have a new leukopenia with white blood cell count down to 2.8. After lengthy discussion with the patient and his daughter, they felt confident they could have follow-up blood work done on February 17 at the local clinic on [place]. They were anxious to return home and he was feeling back to his usual baseline. 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 Explained that it is suspected this leukopenia is postinfectious as his white blood cell count had been in normal range up until this singular result on February 15. I do anticipate it should normalize within the next couple of lab draws. His gout symptoms had fully resolved. He was advised that on his echocardiogram his aorta appeared a bit dilated. He was encouraged to follow-up with his primary care provider to obtain a CT of the chest to evaluate for potential aneurysm. Patient is discharged in stable condition. Status at Discharge Cognitive/behavioral status at discharge: at baseline, oriented Overall status at discharge: patient is progressing back to baseline Time Spent with Patient Time spent: Greater than 30 minutes Exam Vital Signs (past 8 hours): Fraction of Inspired Oxygen 28 SaO2/FiO2 Ratio 346 Oxygen Delivery Method Room Air Oxygen Flow Rate 0 Narrative Exam Narrative: GEN: Alert and oriented x 3, NAD HEENT:NC, Face symmetric CHEST: Respiratory excursions symmetric, coarse but CTAB CV: Irregularly irregular, no M/R/G ABD: Soft, NT/ND, BT present in all 4 quadrants, no organomegaly or masses EXTR: warm, well perfused, no C/C/E SKIN: warm and dry, no rash NEURO: Alert and oriented x 3, nonfocal Objective Labs 02/16/24 05:25 02/16/24 05:25 Labs: Laboratory Results - last 24 hr 02/16/24 05:25 WBC 2.8 L RBC 2.18 L Hgb 8.1 L Hct 24.8 L MCV 113.3 H MCH 37.2 H MCHC 32.8 RDW 17.4 H Plt Count 87 L Neut % (Auto) 52.3 Lymph % (Auto) 18.4 L [place] % (Auto) 28.9 H Eos % (Auto) 0.0 L Baso % (Auto) 0.4 Neut # (Auto) 1500 Lymph # (Auto) 500 L [place] # (Auto) 800 Eos # (Auto) 0 Baso # (Auto) 0 RBC Morphology See below Poikilocytosis 1+ H Anisocytosis 1+ H Macrocytosis 2+ H Acanthocytes (Spur) 1+ Sodium 139 Potassium 4.4 Chloride 109 H Carbon Dioxide 24 BUN 30 H Creatinine 0.70 Estimated GFR > 60 BUN/Creatinine Ratio 42.9 H Glucose 124 H Calcium 8.5 PFSH Medical History Actinic keratosis (12/05/04) Compression fracture of first lumbar vertebra Restless legs syndrome (RLS) Osteoporosis (~2017) Compression fracture of thoracic vertebra CMML (chronic myelomonocytic leukemia) (~2017) Neutropenia (06/19/16) Essential hypertension (03/06/16) Aortic sclerosis (07/08/15) Malignant neoplasm of prostate (07/08/15) Other iron deficiency anemia (07/08/15) Obstructive sleep apnea syndrome (07/08/15) Mixed hyperlipidemia (01/08/03) Erectile dysfunction due to arterial insufficiency (07/08/15) Coronary artery disease involving [place] coronary artery of [place] heart without angina pectoris (07/08/15) Surgical History S/P CABG x 4 Hip joint replacement status History of tonsillectomy and adenoidectomy Status post appendectomy Family History Father Mental health problem Social History marital status: details: trang Tam, lives on [place] in the summer number of children: 3 household members: spouse lives independently: Yes caregiver/support person: No housing: house occupational status: previously employed Smoking Status: Never smoker alcohol intake: never Discharge Plan Discharge Plan Patient Disposition: Home Provider Discharge Comment: 1) Please get a repeat CBC on 02/18/24 to recheck your WBC (white blood cell) count. Today, it was 2.8. Your usual count is around 4.5-5.5. It may have dropped related to your pneumonia. You are on a couple of medications that can result in lower WBC as side effect, but you have been on these medications for a long times, so that is less likely to be the cause. 2) See your PCP about getting a CT scan of your chest to look at your aorta (it looked a bit enlarged on the ultrasound of your heart so should be checked more closely) Return to the ED for: Worsening shortness of breath, fevers, inability to hold down food/fluids Discharge orders & Medications Prescriptions: New prednisone 20 mg Tablet 40 mg PO DAILY Qty: 2 0RF Continued mirtazapine 15 mg tablet 15 mg PO QPM digoxin 125 mcg (0.125 mg) tablet 125 mcg PO DAILY lisinopril 5 mg tablet 5 mg PO BID levothyroxine 25 mcg tablet 25 mcg PO DAILY metoprolol succinate 25 mg tablet extended release 24 hr 50 mg PO DAILY Calcium With Vitamin D3 1 tab PO BID atorvastatin 40 mg tablet 40 mg PO BEDTIME citalopram 10 mg tablet 20 mg PO QAM Follow up/Referrals: Gloria Olson MD [Primary Care Provider] - Diet/Activity/Treatments Diet: Diet as Tolerated and Regular Activity: As nesha Oxygen: N/A Visit Report/Discharge Packet Instructions: DI for Pneumonia -- Adult Stand Alone Forms: Patient Portal/API, Stroke Signs & Symptoms Discharge Data Primary Care Provider: Gloria Olson
== END 2024-02-16 15:36 | disposition home health service (06) | DRG 871 ==
LOC: ED 15:05 → AC 18:05
PROVIDERS: Hospitalist; Internal Medicine; Admitting Provider Family Medicine; Emergency Provider Emergency Medicine; Family Provider Family Medicine; PCP Family Medicine; Referring Provider Emergency Medicine; Visit Provider Family Medicine
DX: A41.9 Sepsis, unspecified organism (principal); G93.41 Metabolic encephalopathy; J96.01 Acute respiratory failure with hypoxia; J18.9 Pneumonia, unspecified organism; C93.10 Chronic myelomonocytic leukemia not having achieved remission; I48.20 Chronic atrial fibrillation, unspecified; J90 Pleural effusion, not elsewhere classified; I48.91 Unspecified atrial fibrillation; I25.10 Atherosclerotic heart disease of native coronary artery without angina pectoris; I10 Essential (primary) hypertension; R65.20 Severe sepsis without septic shock; E03.9 Hypothyroidism, unspecified; D69.6 Thrombocytopenia, unspecified; R00.1 Bradycardia, unspecified; M10.9 Gout, unspecified; E78.5 Hyperlipidemia, unspecified; Z95.1 Presence of aortocoronary bypass graft; Z66 Do not resuscitate
CPT/HCPCS: 0241U; 36415; 36600; 70450; 71045; 80048; 80053; 80162; 80320; 81001; 81003; 81015; 82550; 82607; 82805; 83540; 83550; 83605; 83690; 84145; 84443; 84484; 85007; 85025; 86140; 87040; 87633; 93005; 93306; 94760; 96365; 96367; 97116; 97161; 97166; 97530; 97535; 99283; 99284; J0696; J1650